=== PATIENT | female | born 1975 | race Caucasian/White ===

== ENCOUNTER 2023-06-03 12:22 | Emergency (ER) | payer OTHER, SELFPAY ==
[2023-06-03 12:34] VITALS: BP 153/94; PULSE 110; RESP 18; TEMP 37.2; O2SAT 98; BMI 36.0
[2023-06-03 13:27] LABS: Basophils Absolute Auto 0.1 10^3/uL (0.0-0.1); Basophils Percent Auto 0.5 % (0.2-2.0); Eosinophils Absolute Auto 0.1 10^3/uL (0.0-0.7); Eosinophils Percent Auto 1.1 % (0.9-7.0); Hematocrit 37.1 % (36.0-48.0); Hemoglobin 12.7 g/dL (12.0-16.0); Immature Granulocytes Abs Auto 0.06 10^3/uL (0.00-0.03); Immature Granulocytes Pct Auto 0.6 % (0.0-0.5); Lymphocytes Absolute Auto 2.5 10^3/uL (1.2-3.8); Lymphocytes Percent Auto 23.6 % (20.5-60.0); Mean Corpuscular HGB Conc 34.2 g/dL (29.9-35.2); Mean Corpuscular Hemoglobin 34.3 pg (26.7-34.0); Mean Corpuscular Volume 100.3 fL (81.0-99.0); Mean Platelet Volume 9.1 fL (9.5-13.5); Monocytes Absolute Auto 0.9 10^3/uL (0.3-0.8); Monocytes Percent Auto 8.4 % (1.7-12.0); Neutrophils Absolute Auto 6.9 10^3/uL (1.4-6.5); Neutrophils Percent Auto 65.8 % (43.0-75.0); Platelet Count 261 10^3/uL (150-450); Red Cell Distribution Width 13.6 % (11.0-15.0); White Blood Count 10.4 10^3/uL (4.0-11.0)
[2023-06-03 13:30] LABS: Bilirubin Urine NEGATIVE (NEGATIVE); Blood Urine MODERATE (NEGATIVE); Clarity Urine CLEAR (CLEAR); Color Urine LT. YELLOW (YELLOW); Glucose Urine UA NEGATIVE (NEGATIVE); Ketones Urine NEGATIVE (NEGATIVE); Leukocyte Esterase Urine MODERATE (NEGATIVE); Nitrite Urine POSITIVE (NEGATIVE); Protein Urine 30 mg/dL (NEG/TRACE); Specific Gravity Urine 1.015 (1.005-1.025); Urobilinogen Urine 0.2 EU/dL (0.2-1.0)
[2023-06-03 13:31] LABS: Urine Microscopic Indicated YES
[2023-06-03 13:43] LABS: Bacteria Urine MODERATE #/HPF (NONE SEEN); Cast Seen? NONE SEEN #/LPF (NONE SEEN); Crystals Seen? None Seen #/HPF (None Seen); Mucus Urine NONE SEEN (NONE SEEN); Squamous Epithelial Cell Urine FEW #/LPF (NONE/RARE); Urine Culture Indicated YES; WBC Urine 20-50 #/HPF (NONE SEEN)
[2023-06-03 13:45] LABS: Alanine Aminotransferase 29 U/L (14-59); Albumin Globulin Ratio 0.7; Albumin Level 3.2 g/dL (3.4-5.0); Alkaline Phosphatase 165 U/L (46-116); Anion Gap 13.9; Aspartate Amino Transferase 19 U/L (15-37); BUN Creatinine Ratio 13.1; Bilirubin Total 0.4 mg/dL (0.2-1.0); Calcium 9.5 mg/dL (8.5-10.1); Carbon Dioxide 24.7 mmol/L (21.0-32.0); Chloride 102 mmol/L (98-107); Estimated GFR (African America >60 (>=60); Estimated GFR (Non-African Ame >60 (>=60); Globulin 4.4 g/dL; Glucose 128 mg/dL (74-106); Potassium 3.6 mmol/L (3.5-5.1); Sodium 137 mmol/L (136-145); Total Protein 7.6 g/dL (6.4-8.2)
[2023-06-03 13:57] LABS: HCG Qualitative NEGATIVE (NEGATIVE)
--- NOTE | 2023-06-03 14:12 | US_ITS ---
[address] [address] Patient Name: ANN MARIE AMADOR MRN: [id number] date: 1975 Sex: F Assigned Patient Location: ER Current Patient Location: ER Accession/Order Number: [id number] Exam Date: 06/03/2023 15:25 Report Date: 06/03/2023 16:07 At the request of: CATHLEEN GIRON Procedure: US pelvis transvaginal EXAMINATION: US pelvis transvaginal, US vas organ single comp HISTORY: LLQ pain ovarian torsion COMPARISON: No relevant comparison available. TECHNIQUE: Transabdominal and/or transvaginal sonographic examination was performed as indicated by examination type. FINDINGS: UTERUS: Hysterectomy. RIGHT OVARY: Not seen. No suspicious adnexal findings. LEFT OVARY: Contains a 2.4 cm benign-appearing cyst. Duplex Doppler demonstrates normal waveform and flow; resistive index 0.4. Ovary size: 3.2 x 2.6 x 2.67 m. CUL-DE-SAC: Unremarkable. No significant free fluid. BLADDER: Unremarkable. OTHER: None. US/US pelvis transvaginal IMPRESSION: 1. Left ovary contains a benign-appearing 2.4 cm simple cyst which may contribute to patient's symptoms. 2. No evidence of ovarian torsion. Electronically authenticated by: SHIMA PALOMINO Date: 06/03/2023 16:07
--- NOTE | 2023-06-03 14:12 | CT_ITS ---
[address] [address] Patient Name: ANN MARIE AMADOR MRN: [id number] date: 1975 Sex: F Assigned Patient Location: ER Current Patient Location: Accession/Order Number: [id number] Exam Date: 06/03/2023 14:50 Report Date: 06/03/2023 15:22 At the request of: CATHLEEN GIRON Procedure: CT abdomen pelvis wo con EXAMINATION: CT abdomen pelvis wo con HISTORY: LLQ pain , urinary frequency, pressure with urination COMPARISON: No relevant comparison available. TECHNIQUE: Axial, Coronal, and Sagittal images were obtained without and/or with IV contrast as indicated by examination type. Dose reduction techniques were achieved by using automated exposure control and/or adjustment of mA and/or kV according to patient size and/or use of iterative reconstruction technique. FINDINGS: LUNG BASES: No visible pulmonary or pleural disease. LIVER: No enlargement, atrophy, suspicious density, or significant focal lesion. BILIARY: No dilatation or calcification. PANCREAS: No lesion, fluid collection, or abnormal duct dilatation. SPLEEN: No enlargement or focal lesion. ADRENALS: No mass or enlargement. KIDNEYS: Mild left hydronephrosis and hydroureter secondary to a partially obstructing 5 x 4 x 4 mm stone within distal ureter at the ureterovesical junction. 2 additional smaller stones within distal left ureter. Tiny nonobstructing stone within inferior pole of left kidney. Unremarkable right kidney and ureter. BOWEL/MESENTERY: No visible mass, obstruction, or bowel wall thickening. Normal appendix. AORTA/VASCULAR: No aneurysm or dissection. RETROPERITONEUM: No mass or adenopathy. LYMPH NODES: No adenopathy. URINARY BLADDER: No visible focal wall thickening, lesion, or calculus. PELVIC ORGANS: 2.6 and meter left ovarian cyst versus dominant follicle. No visible mass. Pelvic organs appropriate for patient age. ABDOMINAL WALL: No mass or hernia. BONES: No bony lesion or fracture. OTHER: Negative. CT/CT abdomen pelvis wo con IMPRESSION: 1.Mild left hydronephrosis secondary to a partially obstructing 5 mm stone at the ureterovesical junction. There are two additional smaller stones within the distal left ureter. 2.Nonobstructing left nephrolithiasis. Electronically authenticated by: SHIMA PALOMINO Date: 06/03/2023 15:22
--- NOTE | 2023-06-03 14:12 | ED.ABDPAIN1 ---
HPI - Abdominal Pain General Chief Complaint: Abdominal Pain Stated Complaint: left pelvis pain Time Seen by Provider: 06/03/23 12:48 Source: patient Mode of arrival: walk-in Limitations: no limitations History of Present Illness HPI narrative: The patient presenting with left lower abdominal pain that has been been going for the last day , she denies any burning with urination pain nausea vomiting any blood and urine. The patient denies any risk factor STD No history of similar presentation ,The pain is ten out of ten and it is not radiating Related Data Previous Rx's Medication Instructions Recorded ciprofloxacin HCl 500 mg tablet 500 mg PO BID #14 tabs 06/03/23 diclofenac sodium 75 mg 75 mg PO BID PRN pain #10 tabs 06/03/23 tablet,delayed release tamsulosin 0.4 mg capsule (Flomax) 0.4 mg PO DAILY #10 caps 06/03/23 Allergies Allergy/AdvReac Type Severity Reaction Status Date / Time azithromycin [From Zithromax] Allergy Intermediate Verified 06/03/23 12:38 Review of Systems ROS Status of ROS 10 or more systems reviewed and unremarkable except as noted in history and below Exam Narrative Exam Narrative: Nurses notes and vital signs reviewed and patient is not hypoxic. General: Well-appearing and in no apparent distress. Skin: Warm, dry, no pallor noted. No rash. Head: Normocephalic, atraumatic. Neck: Supple, non-tender. Eye: Pupils are equal, round and EOMI. No scleral icterus. Ears, Nose, Mouth, and Throat: TM are clear, no nasal mucosal hypertrophy. Oral mucosa is moist, no posterior oropharynx erythema, uvula is mid-line Cardiovascular: Regular Rate and Rhythm without murmur, gallop or rub. Respiratory: No accessory muscle use or respiratory distress. Lungs are clear to auscultation, no wheezing, rales or rhonchi Chest Wall: no tenderness Back: No midline thoracic or lumbar vertebral tenderness. No CVA tenderness Musculoskeletal: normal ROM, no calf or popliteal tenderness, no lower extremity edema/swelling GI: Abdomen is soft, left Lower quadrant tenderness and no rebound Neurological: A&O x4. No cranial nerve dysfunction observed. No truncal ataxia. Moves all extremities. Sensation intact. Psychiatric: Cooperative and interactive. Normal mood and affect. Constitutional Vital Signs, click to edit/add: Last Vital Signs Temp 98.9 F 06/03/23 12:34 Pulse 110 H 06/03/23 12:34 Resp 18 06/03/23 12:34 BP 153/94 H 06/03/23 12:34 Pulse Ox 98 06/03/23 12:34 O2 Del Method Room Air 06/03/23 12:34 Course Vital Signs Vital signs: Vital Signs Temperature 98.9 F 06/03/23 12:34 Pulse Rate 110 H 06/03/23 12:34 Respiratory Rate 18 06/03/23 12:34 Blood Pressure 153/94 H 06/03/23 12:34 Pulse Oximetry 98 06/03/23 12:34 Oxygen Delivery Method Room Air 06/03/23 12:34 Temperature 98.9 F 06/03/23 12:34 Pulse Rate 110 H 06/03/23 12:34 Respiratory Rate 18 06/03/23 12:34 Blood Pressure 153/94 H 06/03/23 12:34 Pulse Oximetry 98 06/03/23 12:34 Oxygen Delivery Method Room Air 06/03/23 12:34 MDM - Abdominal Pain MDM Narrative Medical decision making narrative: The patient's CBC and chemistry showed no acute pathology the urinalysis shows possible urinary tract infection The patient CT abdomen and pelvis shows an obstructing 5 mm kidney stone with mild hydronephrosis of the left side and ultrasound of the pelvis shows ovarian cyst the pt case discussed with Dr Umaña ,And he agreed with the plan of discharging the patient with antibiotic as well as pain management and follow-up with him as out pt The patient is to followup with primary care physician in next 2-3 days or to return to the emergency department should any of the signs or symptoms worsen or new symptoms develop. The patient agrees with the following Diagnosis and Treatment plan and the patient will be discharged home. Lab Data Labs: Lab Results 06/03/23 06/03/23 Range/Units 12:41 13:20 WBC 10.4 (4.0-11.0) 10^3/uL RBC 3.70 L (4.20-5.40) 10^6/uL Hgb 12.7 (12.0-16.0) g/dL Hct 37.1 (36.0-48.0) % MCV 100.3 H (81.0-99.0) fL MCH 34.3 H (26.7-34.0) pg MCHC 34.2 (29.9-35.2) g/dL RDW 13.6 (11.0-15.0) % Plt Count 261 (150-450) 10^3/uL MPV 9.1 L (9.5-13.5) fL Neut % (Auto) 65.8 (43.0-75.0) % Lymph % (Auto) 23.6 (20.5-60.0) % [place] % (Auto) 8.4 (1.7-12.0) % Eos % (Auto) 1.1 (0.9-7.0) % Baso % (Auto) 0.5 (0.2-2.0) % Neut # (Auto) 6.9 H (1.4-6.5) 10^3/uL Lymph # (Auto) 2.5 (1.2-3.8) 10^3/uL [place] # (Auto) 0.9 H (0.3-0.8) 10^3/uL Eos # (Auto) 0.1 (0.0-0.7) 10^3/uL Baso # (Auto) 0.1 (0.0-0.1) 10^3/uL Abs Immat Gran (auto) 0.06 H (0.00-0.03) 10^3/uL Imm/Tot Granulo (auto) 0.6 H (0.0-0.5) % Sodium 137 (136-145) mmol/L Potassium 3.6 (3.5-5.1) mmol/L Chloride 102 (98-107) mmol/L Carbon Dioxide 24.7 (21.0-32.0) mmol/L Anion Gap 13.9 BUN 11.0 (7.0-18.0) mg/dL Creatinine 0.84 (0.55-1.02) mg/dL Est GFR ( Amer) >60 (>=60) Est GFR (Non-Af Amer) >60 (>=60) BUN/Creatinine Ratio 13.1 Glucose 128 H (74-106) mg/dL Calcium 9.5 (8.5-10.1) mg/dL Total Bilirubin 0.4 (0.2-1.0) mg/dL AST 19 (15-37) U/L ALT 29 (14-59) U/L Alkaline Phosphatase 165 H (46-116) U/L Total Protein 7.6 (6.4-8.2) g/dL Albumin 3.2 L (3.4-5.0) g/dL Globulin 4.4 g/dL Albumin/Globulin Ratio 0.7 Urine Color Lt. yellow (YELLOW) Urine Clarity Clear (CLEAR) Urine pH 6.0 (5.0-9.0) Ur Specific [place] 1.015 (1.005-1.025) Urine Protein 30 A (NEG/TRACE) mg/dL Urine Glucose (UA) Negative (NEGATIVE) mg/dL Urine Ketones Negative (NEGATIVE) mg/dL Urine Occult Blood Moderate A (NEGATIVE) Urine Nitrite Positive A (NEGATIVE) Urine Bilirubin Negative (NEGATIVE) Urine Urobilinogen 0.2 (0.2-1.0) EU/dL Ur Leukocyte Esterase Moderate A (NEGATIVE) Urine RBC 2-5 A (0-2) #/HPF Urine WBC 20-50 A (NONE SEEN) #/HPF Ur Squamous Epith Cells Few A (NONE/RARE) #/LPF Urine Crystals None seen (None Seen) #/HPF Urine Bacteria Moderate A (NONE SEEN) #/HPF Urine Casts None seen (NONE SEEN) #/LPF Urine Mucus None seen (NONE SEEN) Ur Culture Indicated? Yes Urine HCG, Qual Negative (NEGATIVE) Discharge Plan Discharge Chief Complaint: Abdominal Pain Clinical Impression: UTI (urinary tract infection), Kidney stone Patient Disposition: Home, Self-Care Time of Disposition Decision: 16:38 Condition: Good Mode of Transportation: Private Vehicle Prescriptions / Home Meds: New ciprofloxacin HCl 500 mg tablet 500 mg PO BID Qty: 14 0RF tamsulosin [Flomax] 0.4 mg capsule 0.4 mg PO DAILY Qty: 10 0RF diclofenac sodium 75 mg tablet,delayed release (DR/EC) 75 mg PO BID PRN (Reason: pain) Qty: 10 0RF Instructions: Kidney Stones (ED), Urinary Tract Infection in Women (ED), How to Strain Your Urine (ED) Stand Alone Forms: Portal Instructions Referrals: Physician,Non-Staff, MD [Primary Care Provider] - 1 week Giuseppe Umaña MD [Physician] - As soon as possible
[2023-06-03] MEDS: KETOROLAC TROMETHAMINE 30 MG/ML VIAL 15 MG IVP (14:35)
[2023-06-03] MEDS: FAMOTIDINE/PF 20 MG/2 ML VIAL IV (14:35)
== END 2023-06-03 17:01 | disposition home or self-care (01) ==
PROVIDERS: Emergency Provider Emergency Medicine
DX: N13.6 Pyonephrosis (principal)
CPT/HCPCS: 36415; 74176; 76830; 80053; 81003; 81015; 84703; 85025; 87086; 87150; 87186; 93975; 96374; 96375; 99285

== ENCOUNTER 2023-06-08 11:50 | Outpatient (OUT) | payer OTHER, SELFPAY ==
--- NOTE | 2023-06-08 12:33 | XR_ITS ---
The [address] [address] Patient Name: ANN MARIE AMADOR MRN: [id number] date: 1975 Sex: F Assigned Patient Location: [facility] Current Patient Location: Accession/Order Number: [id number] Exam Date: 06/08/2023 12:35 Report Date: 06/09/2023 07:28 At the request of: ASHLEY SKAGGS Procedure: XR abdomen 1V EXAMINATION: XR abdomen 1V HISTORY: Ureteral Stone, Kidney Stone COMPARISON: 06/03/2023 FINDINGS: KIDNEY/URETER - RIGHT: No visible renal or ureteral calcifications. KIDNEY/URETER - LEFT: Calcifications in the low left pelvis suspected to be phleboliths and/or a distal ureterolith PELVIS: No visible ureteral calcifications. Any visible calcifications favor phleboliths. BOWEL: No abnormal dilation or deviation. Moderate stool in the right colon BONES: No acute abnormality. OTHER: Negative. No abnormal gaseous collections. XR/XR abdomen 1V IMPRESSION: Suspected distal left ureterolith Electronically authenticated by: TOM HAUSER Date: 06/09/2023 07:28
== END 2023-06-08 11:51 | disposition home or self-care (01) ==
LOC: RAD 11:54
PROVIDERS: Visit Provider Urology
DX: N20.2 Calculus of kidney with calculus of ureter (principal)
CPT/HCPCS: 74018

== ENCOUNTER 2023-06-22 10:00 | Outpatient (OUT) | payer OTHER, SELFPAY ==
--- NOTE | 2023-06-22 10:07 | XR_ITS ---
The [address] [address] Patient Name: ANN MARIE AMADOR MRN: [id number] date: 1975 Sex: F Assigned Patient Location: [facility] Current Patient Location: RAD Accession/Order Number: [id number] Exam Date: 06/22/2023 10:05 Report Date: 06/22/2023 10:49 At the request of: ASHLEY SKAGGS Procedure: XR abdomen 1V EXAM: XR abdomen 1V HISTORY: Ureteral stone with hydronephrosis COMPARISON: None. TECHNIQUE: AP view of the abdomen. FINDINGS: Nonobstructive bowel gas pattern is noted. There is probable punctate calculi calculus of the left distal ureter. The osseous structures are intact. XR/XR abdomen 1V IMPRESSION: Nonobstructive bowel gas pattern. Probable calculus in the distal left ureter. Electronically authenticated by: JOAN FARLEY Date: 06/22/2023 10:49
== END 2023-06-22 10:01 | disposition home or self-care (01) ==
LOC: RAD 10:01
PROVIDERS: Visit Provider Urology
DX: N13.2 Hydronephrosis with renal and ureteral calculous obstruction (principal)
CPT/HCPCS: 74018

== ENCOUNTER 2023-07-10 09:09 | Outpatient (OUT) | payer OTHER, SELFPAY ==
[2023-07-10 11:48] LABS: Calcium Urine Random 21.4 mg/dL (5.1-21.0); Creatinine Urine Random 117.19 mg/dL (20.00-300.00); Sodium Urine Random 117 mmol/L (30-90)
[2023-07-10 12:13] LABS: Calcium 24 Hour Urine 267.5 mg/24hr (100.0-300.0); Sodium 24 Hour Urine 146 mmol/24h (40-220); Total Volume 24 Hour Urine 1250 mL/24hr
[2023-07-10 12:32] LABS: Calcium 9.2 mg/dL (8.5-10.1); Carbon Dioxide 26.3 mmol/L (21.0-32.0); Chloride 103 mmol/L (98-107); Estimated GFR (African America >60 (>=60); Estimated GFR (Non-African Ame >60 (>=60); Potassium 3.3 mmol/L (3.5-5.1); Sodium 137 mmol/L (136-145); Uric Acid 3.8 mg/dL (2.6-6.0)
[2023-07-11 09:07] LABS: Uric Acid,Urine 24hr 237.5 mg/24 hr (173.7-902.1)
[2023-07-12 04:08] LABS: Magnesium, U 4.9 mg/dL (Not Estab.); Magnesium,Urine 24hr 61.3 mg/24 hr (12.0-293.0); Phosphorus, Urine 61.1 mg/dL (Not Estab.); Phosphorus,Urine 24h 764 mg/24 hr (261-1078)
[2023-07-12 13:08] LABS: PTH, Intact 132 pg/mL (15-65)
[2023-07-14 16:09] LABS: Citric Acid, U, 24hr 331 mg/24 hr (320-1240); Citric Acid, Urine 265 mg/L (Undefined)
[2023-07-14 17:10] LABS: Oxalates, Urine 6 mg/L (Undefined); Oxalates, Urine 24hr 8 mg/24 hr (4-31)
== END 2023-07-10 09:10 | disposition home or self-care (01) ==
PROVIDERS: Visit Provider Urology
DX: N20.0 Calculus of kidney (principal)
CPT/HCPCS: 36415; 82310; 82340; 82374; 82435; 82507; 82565; 82570; 83735; 83945; 83970; 84105; 84132; 84295; 84300; 84520; 84550; 84560

== ENCOUNTER 2023-07-18 14:15 | Emergency (ER) | payer OTHER, SELFPAY ==
[2023-07-18 14:17] VITALS: BP 170/87; PULSE 100; RESP 16; TEMP 36.9; O2SAT 97; BMI 37.8
--- NOTE | 2023-07-18 14:30 | ED.EXTPRO1 ---
HPI - Extremity Problem General Chief complaint: Extremity Problem, Nontraumatic Stated complaint: OPEN SORE ON R FOOT/PAIN Time Seen by Provider: 07/18/23 14:25 Source: patient Mode of arrival: walk-in Limitations: no limitations History of Present Illness HPI Narrative: this patient's here with early sore/wound on the plantar aspect of her right foot. She is not a diabetic but has not been tested for several years. She is not running a fever. She's not seen a redness or swelling over the dorsum of the foot. She is on her feet a lot says sometimes her feet have a lot of moisture. She works seven days a week. She does not have any complaints today. He does have pets including a cat at home. Related Data Home Medications Medication Instructions Recorded Confirmed lisinopril 10 mg tablet 10 mg PO DAILY 07/18/23 07/18/23 metoprolol succinate 25 mg 25 mg PO DAILY 07/18/23 07/18/23 tablet,extended release 24 hr naratriptan 2.5 mg tablet 2.5 mg PO DAILY 07/18/23 07/18/23 riboflavin (vitamin B2) 100 mg 100 mg PO DAILY 07/18/23 07/18/23 tablet Allergies Allergy/AdvReac Type Severity Reaction Status Date / Time azithromycin [From Zithromax] Allergy Intermediate Verified 06/03/23 12:38 Exam Narrative Exam Narrative: very pleasant awake alert oriented ?3. We will do a bedside glucose to rule out any unsuspected diabetic condition. Problem focused examination as noted below. Examination the plantar aspect and the dorsum of her foot shows no swelling lymphangitis erythema or evidence of cellulitis. There is no intertriginous O evidence of fungal infections or tinea. At the metatarsophalangeal joint of her 3rd digit she discuss small break in the skin. Within that break in the skin there is some For and some clothing debris. We will scrub this area out. This should respond better hygiene keeping it clean topical antibiotic ointment. Constitutional Vital Signs, click to edit/add: Last Vital Signs Temp 98.5 F 07/18/23 14:17 Pulse 100 H 07/18/23 14:17 Resp 16 07/18/23 14:17 BP 170/87 H 07/18/23 14:17 Pulse Ox 97 07/18/23 14:17 O2 Del Method Room Air 07/18/23 14:17 Course Vital Signs Vital signs: Vital Signs Temperature 98.5 F 07/18/23 14:17 Pulse Rate 100 H 07/18/23 14:17 Respiratory Rate 16 07/18/23 14:17 Blood Pressure 170/87 H 07/18/23 14:17 Pulse Oximetry 97 07/18/23 14:17 Oxygen Delivery Method Room Air 07/18/23 14:17 Temperature 98.5 F 07/18/23 14:17 Pulse Rate 100 H 07/18/23 14:17 Respiratory Rate 16 07/18/23 14:17 Blood Pressure 170/87 H 07/18/23 14:17 Pulse Oximetry 97 07/18/23 14:17 Oxygen Delivery Method Room Air 07/18/23 14:17 MDM - Extremity (Nontraumatic) MDM Narrative Medical decision making narrative: patient has a small crack in the skin with no evidence of secondary complications. We'll clean this up and recommend bacitracin or triple antibiotic ointment and but low but better hygiene. Discharge Plan Discharge Chief Complaint: Extremity Problem, Nontraumatic Clinical Impression: Superficial foreign body of toe of right foot without major open wound and without infection Patient Disposition: Home, Self-Care Time of Disposition Decision: 14:32 Prescriptions / Home Meds: No Action lisinopril 10 mg tablet 10 mg PO DAILY metoprolol succinate 25 mg tablet extended release 24 hr 25 mg PO DAILY naratriptan 2.5 mg tablet 2.5 mg PO DAILY riboflavin (vitamin B2) 100 mg tablet 100 mg PO DAILY Additional Instructions: wear postop shoe for seven to ten days to facilitate healing. Topical bacitracin twice daily. Keep foot clean at all times Stand Alone Forms: Portal Instructions Referrals: Physician,Non-Staff, MD [Primary Care Provider] - 1 week
[2023-07-18 14:55] LABS: Glucometer 116 mg/dL (74-106)
== END 2023-07-18 15:09 | disposition home or self-care (01) ==
PROVIDERS: Emergency Provider Emergency Medicine Emergency Medical Services
DX: S90.454A Superficial foreign body, right lesser toe(s), initial encounter (principal); X58.XXXA Exposure to other specified factors, initial encounter; Z79.899 Other long term (current) drug therapy
CPT/HCPCS: 36415; 99282

== ENCOUNTER 2023-07-21 08:38 | Outpatient (OUT) | payer OTHER, SELFPAY ==
[2023-07-21 09:18] LABS: Basophils Absolute Auto 0.1 10^3/uL (0.0-0.1); Basophils Percent Auto 0.7 % (0.2-2.0); Eosinophils Absolute Auto 0.3 10^3/uL (0.0-0.7); Eosinophils Percent Auto 3.3 % (0.9-7.0); Hematocrit 41.9 % (36.0-48.0); Hemoglobin 14.1 g/dL (12.0-16.0); Immature Granulocytes Abs Auto 0.02 10^3/uL (0.00-0.03); Immature Granulocytes Pct Auto 0.2 % (0.0-0.5); Lymphocytes Absolute Auto 4.3 10^3/uL (1.2-3.8); Lymphocytes Percent Auto 49.3 % (20.5-60.0); Mean Corpuscular HGB Conc 33.7 g/dL (29.9-35.2); Mean Corpuscular Hemoglobin 33.8 pg (26.7-34.0); Mean Corpuscular Volume 100.5 fL (81.0-99.0); Monocytes Absolute Auto 0.5 10^3/uL (0.3-0.8); Monocytes Percent Auto 5.2 % (1.7-12.0); Neutrophils Absolute Auto 3.6 10^3/uL (1.4-6.5); Neutrophils Percent Auto 41.3 % (43.0-75.0); Platelet Count 281 10^3/uL (150-450); Red Blood Count 4.17 10^6/uL (4.20-5.40); Red Cell Distribution Width 13.6 % (11.0-15.0); White Blood Count 8.7 10^3/uL (4.0-11.0)
[2023-07-21 11:17] LABS: Estimated Average Glucose 120 mg/dL; Glycohemoglobin A1C 5.8 % (4.5-6.2)
[2023-07-21 13:18] LABS: Alanine Aminotransferase 23 U/L (14-59); Albumin Globulin Ratio 0.7; Albumin Level 3.2 g/dL (3.4-5.0); Alkaline Phosphatase 162 U/L (46-116); BUN Creatinine Ratio 17.9; Bilirubin Total 0.1 mg/dL (0.2-1.0); Calcium 9.5 mg/dL (8.5-10.1); Carbon Dioxide 24.1 mmol/L (21.0-32.0); Chloride 107 mmol/L (98-107); Chol HDL Ratio 8.8; Cholesterol 247 mg/dL (<=200); Estimated GFR (African America >60 (>=60); Estimated GFR (Non-African Ame >60 (>=60); Globulin 4.4 g/dL; Glucose 100 mg/dL (74-106); HDL Cholesterol 28 mg/dL (40-60); Potassium 4.1 mmol/L (3.5-5.1); Sodium 140 mmol/L (136-145); Thyroid Stimulating Hormone 2.159 uIU/mL (0.358-3.740); Total Protein 7.6 g/dL (6.4-8.2); Triglycerides 609 mg/dL (<=150); VLDL CHOLESTEROL 121.8 mg/dL
[2023-07-21 13:42] LABS: Aspartate Amino Transferase <5 U/L (15-37)
[2023-07-21 14:14] LABS: LDL Cholesterol Direct 121 mg/dL
[2023-07-22 05:10] LABS: HCV Ab Non Reactive (Non Reactive); HIV Ab/p24 Ag Screen Non Reactive (Non Reactive)
== END 2023-07-21 08:39 | disposition home or self-care (01) ==
LOC: LAB 08:40
PROVIDERS: PCP Nurse Practitioner Primary Care; Visit Provider Nurse Practitioner Primary Care
DX: Z00.00 Encounter for general adult medical examination without abnormal findings (principal); Z11.59 Encounter for screening for other viral diseases; Z13.6 Encounter for screening for cardiovascular disorders; Z13.29 Encounter for screening for other suspected endocrine disorder; Z11.4 Encounter for screening for human immunodeficiency virus [HIV]
CPT/HCPCS: 36415; 80053; 80061; 83036; 83721; 84443; 85025; 86803; 87389

== ENCOUNTER 2023-08-09 11:31 | Outpatient (OUT) | payer OTHER, SELFPAY ==
--- NOTE | 2023-08-09 11:35 | MM_ITS ---
Patient: ANN MARIE AMADOR Exam Date: 08/09/2023 : 1975 Gender:F Ordering : GREER Monroe GREGORIOROLANDO Admission #: [id number] Family : Order #: [id number] CLICK HERE TO VIEW EXAM RADIOLOGY REPORT PROCEDURE: MM TOMOSYNTHESIS SCREENING BI COMPARISON: None. INDICATIONS: Z12.31 Calculator Name NCI Breast Cancer Risk Assessment Tool 5 Year Breast Cancer Risk 0.80% Lifetime Breast Cancer Risk 8.30% Personal Breast Cancer No Personal Ovarian Cancer No Treatments None Family Cancers Aunt-maternal with breast cancer at age ~55; Aunt-maternal with breast cancer at age ~56; Cousin-maternal with breast cancer at age ~50; Mother with lung cancer at age ~60. LOCATION: [facility] [place] BREAST COMPOSITION: Heterogeneously dense,which may obscure small masses. FINDINGS: DIAGNOSTIC CATEGORY 0--INCOMPLETE: NEED ADDITIONAL IMAGING EVALUATION. Innumerable bilateral nodules are identified , indeterminate with no prior comparison, consider bilateral whole breast ultrasound. Scattered benign-appearing lymph nodes are present. RIGHT BREAST: 1.7 x 0.9 cm oval nodule lower outer quadrant of the right mid breast with surrounding hypodensity measuring 3.5 cm. Ultrasound follow-up recommended LEFT BREAST: Scattered nodules. RECOMMENDATIONS: ULTRASOUND: BILATERAL BREASTS PLEASE NOTE: A NORMAL MAMMOGRAM DOES NOT EXCLUDE THE POSSIBILITY OF BREAST CANCER. A CLINICALLY SUSPICIOUS PALPABLE LUMP SHOULD BE BIOPSIED. Dictated by: Magen Chanel MD on 08/09/2023 at 15:43 Approved by: Magen Chanel MD on 08/09/2023 at 15:47
== END 2023-08-09 11:32 | disposition home or self-care (01) ==
LOC: MAMMO 11:32
PROVIDERS: PCP Nurse Practitioner Primary Care; Visit Provider Nurse Practitioner Primary Care
DX: Z12.31 Encounter for screening mammogram for malignant neoplasm of breast (principal); Z80.3 Family history of malignant neoplasm of breast; Z80.1 Family history of malignant neoplasm of trachea, bronchus and lung; N63.13 Unspecified lump in the right breast, lower outer quadrant
CPT/HCPCS: 77063; 77067

== ENCOUNTER 2023-08-10 11:10 | Outpatient (OUT) | payer OTHER, SELFPAY ==
--- NOTE | 2023-08-10 | XR_ITS ---
[address] [address] Patient Name: ANN MARIE AMADOR MRN: [id number] date: 1975 Sex: F Assigned Patient Location: [facility] Current Patient Location: Accession/Order Number: [id number] Exam Date: 08/10/2023 11:53 Report Date: 08/11/2023 07:22 At the request of: ADELE ROSS Procedure: XR foot GABRIELA min 3V EXAMINATION: XR foot GABRIELA min 3V HISTORY: BILATERAL FOOT PAIN COMPARISON: XR foot bilateral 06/04/2022 FINDINGS: RIGHT FINDINGS: BONES: No significant arthropathy or acute abnormality. SOFT TISSUES: No visible soft tissue swelling. OTHER: Negative. LEFT FINDINGS: BONES: No significant arthropathy or acute abnormality. SOFT TISSUES: No visible soft tissue swelling. OTHER: Negative. XR/XR foot GABRIELA min 3V IMPRESSION: RIGHT CONCLUSION: Minimal degenerative changes. No acute or suspicious findings. LEFT CONCLUSION: Minimal degenerative changes. No acute or suspicious findings. Electronically authenticated by: SHIMA PALOMINO Date: 08/11/2023 07:22
== END 2023-08-10 11:11 | disposition home or self-care (01) ==
LOC: RAD 11:10
PROVIDERS: PCP Nurse Practitioner Primary Care; Visit Provider Podiatrist Foot & Ankle Surgery
DX: M79.671 Pain in right foot (principal); M79.672 Pain in left foot
CPT/HCPCS: 73630

== ENCOUNTER 2023-08-20 14:19 | Outpatient (OUT) | payer OTHER, SELFPAY ==
--- NOTE | 2023-08-20 14:24 | US_ITS ---
Patient: ANN MARIE AMADOR Exam Date: 08/20/2023 : 1975 Gender:F Ordering : GREER SIFUENTES Admission #: [id number] Family : Order #: [id number] CLICK HERE TO VIEW EXAM RADIOLOGY REPORT PROCEDURE: US BREAST BI COMPLETE COMPARISON: MM TOMOSYNTHESIS SCREENING BI, 08/09/2023. INDICATIONS: Abnormal Mammogram R92.8 TECHNIQUE: Breast ultrasound was performed, with evaluation focusing only on specific areas of concern. FINDINGS: DIAGNOSTIC CATEGORY 2--BENIGN FINDING: Bilateral whole breast ultrasound demonstrates multiple hypo and anechoic areas in both breasts, all are avascular. the largest the 8 o'clock position of the right breast measures 1.4 x 1.0 x 0.6 cm oval in shape well-circumscribed with no vascularity. I favor simple and complex cysts. No further evaluation is required RECOMMENDATIONS: ROUTINE MAMMOGRAM AND CLINICAL EVALUATION IN 12 MONTHS. PLEASE NOTE: A NORMAL ULTRASOUND EXAMINATION DOES NOT EXCLUDE THE POSSIBILITY OF BREAST CANCER. A CLINICALLY SUSPICIOUS PALPABLE LUMP SHOULD BE BIOPSIED. Dictated by: Magen Chanel MD on 08/24/2023 at 15:10 Approved by: Magen Chanel MD on 08/24/2023 at 15:12
== END 2023-08-20 14:20 | disposition home or self-care (01) ==
LOC: US 14:20
PROVIDERS: PCP Nurse Practitioner Primary Care; Visit Provider Nurse Practitioner Primary Care
DX: R92.8 Other abnormal and inconclusive findings on diagnostic imaging of breast (principal)
CPT/HCPCS: 76641

== ENCOUNTER 2023-12-23 23:21 | Emergency (ER) | payer SELFPAY ==
[2023-12-23 23:28] VITALS: BP 152/91; PULSE 139; RESP 20; TEMP 37.5; O2SAT 96; BMI 33.6
[2023-12-23 23:47] VITALS: PULSE 132; RESP 22
[2023-12-23 23:50] VITALS: PULSE 135; RESP 18
--- NOTE | 2023-12-23 23:53 | ECG_ITS ---
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
--- NOTE | 2023-12-23 23:53 | XR_ITS ---
The [address] [address] Patient Name: ANN MARIE AMADOR MRN: [id number] date: 1975 Sex: F Assigned Patient Location: ED.MAIN Current Patient Location: ER Accession/Order Number: [id number] Exam Date: 12/23/2023 23:59 Report Date: 12/24/2023 00:29 At the request of: ZANDER PERES Procedure: XR chest 1V EXAM: XR chest 1V HISTORY: cough fever, sore throat. COMPARISON: 07/12/2021. TECHNIQUE: Portable AP upright chest x-ray FINDINGS: Lungs clear without infiltrate or edema. Size normal for technique and unchanged, accentuated by magnification. No pleural effusion or pneumothorax. XR/XR chest 1V IMPRESSION: Stable chest x-ray, no acute findings. Electronically authenticated by: TAHIR OCONNELL Date: 12/24/2023 00:29
--- NOTE | 2023-12-23 23:55 | ED.GENADUL1 ---
HPI - General Adult General Chief complaint: Upper Respiratory Infection Stated complaint: vomiting JAW PAIN Time Seen by Provider: 12/23/23 23:30 History of Present Illness HPI narrative: 3 days ago the patient lost her voice. Tonight she developed fever, pain in the left ear and left side of her neck and jaw. Patient also complains of cough, fatigue, poor appetite and poor oral intake due to nausea and fast heart rate. She denied any vomiting or diarrhea. No shortness of breath. She said that she has several ill contacts in her office but does not know what they were diagnosed with. She said that she last took motrin around 2pm. Related Data Home Medications Medication Instructions Recorded Confirmed lisinopril 10 mg tablet 10 mg PO DAILY 07/18/23 07/18/23 metoprolol succinate 25 mg 25 mg PO DAILY 07/18/23 07/18/23 tablet,extended release 24 hr naratriptan 2.5 mg tablet 2.5 mg PO DAILY 07/18/23 07/18/23 riboflavin (vitamin B2) 100 mg 100 mg PO DAILY 07/18/23 07/18/23 tablet Previous Rx's Medication Instructions Recorded ondansetron 4 mg disintegrating 4 mg PO Q6H PRN nausea and 12/24/23 tablet vomiting #20 tabs Allergies Allergy/AdvReac Type Severity Reaction Status Date / Time azithromycin [From Zithromax] Allergy Intermediate Verified 06/03/23 12:38 PFSH PFS Social History Smoking status: Current every day smoker Exam Narrative Exam Narrative: Nurses notes and vital signs reviewed and patient is not hypoxic. afebrile General: Well-appearing and in no apparent distress. Skin: Warm, dry, no pallor noted. No rash. Head: Normocephalic, atraumatic. Neck: Supple, no cervical lymphadenopathy. Left anterolateral tenderness without any masses, soft tissue swelling, erythema, warmth or palpable abscess. No meningismus. Eye: Pupils are equal, round and EOMI. No scleral icterus. Ears, Nose, Mouth, and Throat: TM are clear, mild posterior oropharynx erythema without exudate, no nasal mucosal hypertrophy, uvula is mid-line. Oral mucosa is dry Cardiovascular: Tachycardia. Respiratory: No accessory muscle use or respiratory distress. Lungs are clear to auscultation, no wheezing, rales or rhonchi Back: No midline thoracic or lumbar vertebral tenderness. No CVA tenderness Musculoskeletal: normal ROM GI: Abdomen is soft, non-distended. Normal bowel sounds. No tenderness to palpation. No rebound, guarding, or rigidity noted. Neurological: A&O x4. No cranial nerve dysfunction observed. No truncal ataxia. Moves all extremities. Sensation intact. Psychiatric: Cooperative and interactive. Normal mood and affect. Constitutional Vital Signs, click to edit/add: Last Vital Signs Temp 99.5 F 12/23/23 23:28 Pulse 110 H 12/24/23 00:50 Resp 24 12/24/23 00:50 BP 129/78 12/24/23 00:30 Pulse Ox 96 12/24/23 00:22 O2 Del Method Room Air 12/23/23 23:28 Course Vital Signs Vital signs: Vital Signs Temperature 99.5 F 12/23/23 23:28 Pulse Rate 139 H 12/23/23 23:28 Respiratory Rate 20 12/23/23 23:28 Blood Pressure 152/91 H 12/23/23 23:28 Pulse Oximetry 96 12/23/23 23:28 Oxygen Delivery Method Room Air 12/23/23 23:28 Temperature 99.5 F 12/23/23 23:28 Pulse Rate 110 H 12/24/23 00:50 Respiratory Rate 24 12/24/23 00:50 Blood Pressure 129/78 12/24/23 00:30 Pulse Oximetry 96 12/24/23 00:22 Oxygen Delivery Method Room Air 12/23/23 23:28 Medical Decision Making MDM Narrative Medical decision making narrative: Peripheral IV established and blood drawn and sent for testing, including lactate, procalcitonin, blood cultures per sepsis protocol. Swabs were also obtained for strep throat, COVID and influenza. Chest x-ray obtained. She was ordered to receive a liter of normal saline IV fluid, IV Toradol and IV Zofran. EKG today is unchanged from one obtained 07/12/21. normal WBC on CBC. CXR negative. Na 133, CO2 19.5, remainder of CMP unremarkable. Swabs for influenza and strep were negative. Covid swab positive. Patient informed of results and discharged home with prescription for Zofran and a work excuse. Patient advised to rest, stay at home, practice social distancing, take Motrin and Tylenol for pain and fever if not allergic, stay well hydrated with Gatorade or similar drinks if vomiting or eat as tolerated if not and take any meds as prescribed. Reviewed reasons to return including rapid increase in respiratory rate, shortness of breath, confusion, inability to keep down sips of swallowed liquids for more than 24 hours. Asked patient to encourage any ill contacts to stay home and practice similar advice. Lab Data Lab results reviewed: Yes I reviewed the patient's lab results Labs: Lab Results 12/23/23 12/24/23 Range/Units 23:53 00:11 WBC 8.5 (4.0-11.0) 10^3/uL RBC 4.17 L (4.20-5.40) 10^6/uL Hgb 14.5 (12.0-16.0) g/dL Hct 42.7 (36.0-48.0) % MCV 102.4 H (81.0-99.0) fL MCH 34.8 H (26.7-34.0) pg MCHC 34.0 (29.9-35.2) g/dL RDW 13.4 (11.0-15.0) % Plt Count 246 (150-450) 10^3/uL MPV 10.1 (9.5-13.5) fL Neut % (Auto) 60.8 (43.0-75.0) % Lymph % (Auto) 29.1 (20.5-60.0) % [place] % (Auto) 8.5 (1.7-12.0) % Eos % (Auto) 0.8 L (0.9-7.0) % Baso % (Auto) 0.6 (0.2-2.0) % Neut # (Auto) 5.1 (1.4-6.5) 10^3/uL Lymph # (Auto) 2.5 (1.2-3.8) 10^3/uL [place] # (Auto) 0.7 (0.3-0.8) 10^3/uL Eos # (Auto) 0.1 (0.0-0.7) 10^3/uL Baso # (Auto) 0.1 (0.0-0.1) 10^3/uL Abs Immat Gran (auto) 0.02 (0.00-0.03) 10^3/uL Imm/Tot Granulo (auto) 0.2 (0.0-0.5) % Sodium 132 L (136-145) mmol/L Potassium 3.8 (3.5-5.1) mmol/L Chloride 101 (98-107) mmol/L Carbon Dioxide 19.5 L (21.0-32.0) mmol/L Anion Gap 15.3 BUN 7.0 (7.0-18.0) mg/dL Creatinine 0.85 (0.55-1.02) mg/dL Est GFR ( Amer) >60 (>=60) Est GFR (Non-Af Amer) >60 (>=60) BUN/Creatinine Ratio 8.2 Glucose 147 H (74-106) mg/dL Lactate 2.7 H* (0.4-2.0) mmol/L Calcium 9.8 (8.5-10.1) mg/dL Total Bilirubin 0.2 (0.2-1.0) mg/dL AST 10 L (15-37) U/L ALT 41 (14-59) U/L Alkaline Phosphatase 197 H (46-116) U/L Total Protein 8.1 (6.4-8.2) g/dL Albumin 3.3 L (3.4-5.0) g/dL Globulin 4.8 g/dL Albumin/Globulin Ratio 0.7 Procalcitonin <0.05 (0.00-0.50) ng/mL Influenza Type A Ag Negative Influenza Type B Ag Negative SARS-CoV-2 Ag (CV2AG) Positive A (NEGATIVE) Streptococcus Screen Negative Imaging Data Chest x-ray: Radiologist's impression: ITS Impressions Chest X-Ray 12/23/23 23:53 IMPRESSION: Stable chest x-ray, no acute findings. Electronically authenticated by: TAHIR OCONNELL Date: 12/24/2023 00:29 ECG Data Attestation: I personally reviewed and interpreted this ECG as follows: Interpretation: EKG interpretation: Emergency Department physician interpretation. Sinus tachycardia at 132bpm. Indeterminate axis, normal intervals, non specific T wave changes but no ST segment elevation or depression. Discharge Plan Discharge Chief Complaint: Upper Respiratory Infection Clinical Impression: COVID Patient Disposition: Home, Self-Care Time of Disposition Decision: 01:03 Prescriptions / Home Meds: New ondansetron 4 mg tablet,disintegrating 4 mg PO Q6H PRN (Reason: nausea and vomiting) Qty: 20 0RF No Action lisinopril 10 mg tablet 10 mg PO DAILY metoprolol succinate 25 mg tablet extended release 24 hr 25 mg PO DAILY naratriptan 2.5 mg tablet 2.5 mg PO DAILY riboflavin (vitamin B2) 100 mg tablet 100 mg PO DAILY Instructions: COVID-19 (Coronavirus Disease 2019) (ED) Stand Alone Forms: Portal Instructions Referrals: GREER SIFUENTES APRN [Primary Care Provider] - 1 week
[2023-12-24] VITALS (8 sets, daily range): BP systolic 111–129; BP diastolic 78–84; PULSE 110–130; RESP 17–26; O2SAT 94–96
[2023-12-24] MEDS: 0.9 % SODIUM CHLORIDE 1,000 ML 1000 ML IV (00:05)
[2023-12-24] MEDS: KETOROLAC TROMETHAMINE 30 MG/ML VIAL IVP (00:06)
[2023-12-24] MEDS: ONDANSETRON PF 4 MG/2 ML VIAL IV (00:06)
[2023-12-24 00:29] LABS: Basophils Absolute Auto 0.1 10^3/uL (0.0-0.1); Basophils Percent Auto 0.6 % (0.2-2.0); Eosinophils Absolute Auto 0.1 10^3/uL (0.0-0.7); Eosinophils Percent Auto 0.8 % (0.9-7.0); Hematocrit 42.7 % (36.0-48.0); Hemoglobin 14.5 g/dL (12.0-16.0); Immature Granulocytes Abs Auto 0.02 10^3/uL (0.00-0.03); Immature Granulocytes Pct Auto 0.2 % (0.0-0.5); Lymphocytes Absolute Auto 2.5 10^3/uL (1.2-3.8); Lymphocytes Percent Auto 29.1 % (20.5-60.0); Mean Corpuscular Hemoglobin 34.8 pg (26.7-34.0); Mean Corpuscular Volume 102.4 fL (81.0-99.0); Mean Platelet Volume 10.1 fL (9.5-13.5); Monocytes Absolute Auto 0.7 10^3/uL (0.3-0.8); Monocytes Percent Auto 8.5 % (1.7-12.0); Neutrophils Absolute Auto 5.1 10^3/uL (1.4-6.5); Neutrophils Percent Auto 60.8 % (43.0-75.0); Platelet Count 246 10^3/uL (150-450); Red Blood Count 4.17 10^6/uL (4.20-5.40); Red Cell Distribution Width 13.4 % (11.0-15.0); White Blood Count 8.5 10^3/uL (4.0-11.0)
[2023-12-24 00:39] LABS: Internal Control Within Normal Limits; Strep A Antigen Screen Negative
[2023-12-24 00:39] LABS: Alanine Aminotransferase 41 U/L (14-59); Albumin Globulin Ratio 0.7; Albumin Level 3.3 g/dL (3.4-5.0); Alkaline Phosphatase 197 U/L (46-116); Anion Gap 15.3; Aspartate Amino Transferase 10 U/L (15-37); BUN Creatinine Ratio 8.2; Bilirubin Total 0.2 mg/dL (0.2-1.0); Calcium 9.8 mg/dL (8.5-10.1); Carbon Dioxide 19.5 mmol/L (21.0-32.0); Chloride 101 mmol/L (98-107); Estimated GFR (African America >60 (>=60); Estimated GFR (Non-African Ame >60 (>=60); Globulin 4.8 g/dL; Glucose 147 mg/dL (74-106); Potassium 3.8 mmol/L (3.5-5.1); Sodium 132 mmol/L (136-145); Total Protein 8.1 g/dL (6.4-8.2)
[2023-12-24 00:44] LABS: Influenza Virus A Antigen Negative; Influenza Virus B Antigen Negative; Internal Control Within Normal Limits; SARS-CoV-2 Ag POSITIVE (NEGATIVE)
[2023-12-24 00:51] LABS: PROCALCITONIN <0.05 ng/mL (0.00-0.50)
[2023-12-24 01:01] LABS: Lactate/Lactic Acid 2.7 mmol/L (0.4-2.0)
--- NOTE | 2023-12-24 01:20 | PC.NURSE ---
Discussed discharge paperwork and covid diagnosis with pt. all questions answered. work note provided. script sent to pharmacy. pt ambulated off unit in stable condition.
== END 2023-12-24 01:21 | disposition home or self-care (01) ==
PROVIDERS: Emergency Provider Emergency Medicine; PCP Nurse Practitioner Primary Care
DX: U07.1 COVID-19 (principal); Z79.899 Other long term (current) drug therapy; F17.210 Nicotine dependence, cigarettes, uncomplicated
CPT/HCPCS: 36415; 71045; 80053; 83605; 84145; 85025; 87040; 87070; 87804; 87811; 87880; 93005; 96374; 96375; 99285; J1885; J2405

== ENCOUNTER 2025-10-09 12:18 | Emergency (ER) | payer SELFPAY ==
[2025-10-09 12:22] VITALS: BP 148/100; PULSE 120; TEMP 37.2; O2SAT 97; BMI 33.8
--- NOTE | 2025-10-09 12:32 | PC.NURSE ---
no lips or tongue swelling
--- NOTE | 2025-10-09 12:38 | ED_ITS ---
HPI HPI - General Adult General Chief complaint: Extremity Problem, Nontraumatic Stated complaint: FACIAL SWELLING Time Seen by Provider: 10/09/25 12:29 Source: patient Mode of arrival: walk-in History of Present Illness HPI narrative: 50-year-old female presented to the emergency department for facial swelling is on the right side and she believes it is coming from her right upper dentition. Separately she noted some redness to the left upper eyelid. No drainage. She has had that for a few days. Related Data Previous Rx's ?Medication ?Instructions ?Recorded acetaminophen 300 mg-codeine 30 mg 1 tab PO Q6H PRN pa in 5 days #20 10/09/25 tablet tabs bacitracin 500 unit/gram eye 1 applic ophthalmic (eye) Q8H 7 10/09/25 ointment days #3.5 grams ibuprofen 800 mg tablet 800 mg PO Q8H PRN pain #20 t abs 10/09/25 penicillin V potassium 250 mg 250 mg PO QID 10 days #4 0 tabs 10/09/25 tablet Allergies Allergy/AdvReac Type Severity Reaction Status Date / Time azithromycin (From Zithromax) Allergy Intermediate Verified 06/03/23 12:38 Review of Systems ROS Narrative A ten point review of systems is negative except as noted above. PFSH PFSH Social History Smoking status: Current every day smoker Little interest or pleasure in doing things: not at all Feeling down, depressed, or hopeless: not at all Exam Narrative Exam Narrative: Nurses note and vital signs reviewed General:The patient appears well and in no apparent distress.Patient is resting comfortably on cart. Skin:Warm, dry, no pallor noted.There is no rash noted. Head:Normocephalic, atraumatic Eye: Normal conjunctiva, no drainage, there is some erythema at the lid margin of the left upper eyelid. Ears, Nose, Mouth, and Throat: oral mucosa is moist. Nares patent. No swelling to the floor of her mouth. She is handling oral secretions well. Dental caries is noted in the right upper dentition. She has swelling on the right side of her face, primarily below her eye. Cardiovascular:Regular Rate and Rhythm Respiratory:Patient is in no distress, no accessory muscle use, lungs are clear to auscultation, no wheezing, rales or rhonchi Back:non-tender GI: Soft and nontender Musculoskeletal: The patient has no evidence of calf tenderness, no pitting edema, symmetrical pulses noted bilaterally Neurological:A&O, normal speech Psychiatric:Cooperative Constitutional Vital Signs, click to edit/add: Last Vital Signs Temp 98.9 F 10/09/25 12:22 Pulse 120 H 10/09/25 12:22 Resp 20 10/09/25 12:22 BP 148/100 H 10/09/25 12:22 Pulse Ox 97 10/09/25 12:22 O2 Del Method Room Air 10/09/25 12:22 Course Vital Signs Vital signs: Vital Signs Temperature 98.9 F 10/09/25 12:22 Pulse Rate 120 H 10/09/25 12:22 Respiratory Rate 20 10/09/25 12:22 Blood Pressure 148/100 H 10/09/25 12:22 Pulse Oximetry 97 10/09/25 12:22 Oxygen Delivery Method Room Air 10/09/25 12:22 Temperature 98.9 F 10/09/25 12:22 Pulse Rate 120 H 10/09/25 12:22 Respiratory Rate 20 10/09/25 12:22 Blood Pressure 148/100 H 10/09/25 12:22 Pulse Oximetry 97 10/09/25 12:22 Oxygen Delivery Method Room Air 10/09/25 12:22 Medical Decision Making MDM Narrative Medical decision making narrative: She will be treated with bacitracin for blepharitis of the left eyelid and was given IM Ancef here for dental infection. She is prescribed penicillin, Tylenol 3, and ibuprofen. She has a dentist appointment in 2 days. Treatment diagnosis and follow-up were discussed with the patient. Differential Diagnosis Differential Diagnosis: Dental abscess, dental infection Discharge Plan Discharge Chief Complaint: Extremity Problem, Nontraumatic Clinical Impression: Dental infection, Blepharitis Patient Disposition: Home, Self-Care Time of Disposition Decision: 12:36 Condition: Good Mode of Transportation: Private Vehicle Prescriptions / Home Meds: New acetaminophen-codeine 300-30 mg tablet 1 tab PO Q6H PRN (Reason: pain) 5 Days Qty: 20 0RF penicillin V potassium 250 mg tablet 250 mg PO QID 10 Days Qty: 40 0RF ibuprofen 800 mg tablet 800 mg PO Q8H PRN (Reason: pain) Qty: 20 0RF bacitracin 500 unit/gram ointment 1 applic ophthalmic (eye) Q8H 7 Days Qty: 3.5 0RF Rx Instructions: Apply to eyelid margin, where the eyelashes come out your eyelid Print Language: Iranian Instructions: Dental Abscess (ED)
--- OUTSIDE RECORDS SUMMARY | 2025-10-09 12:41 | XMS_ITS | CCD ---
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 ? \.br\ One 3 oz (85 g) can of sardines or mackerel.\.br\ Most people need 1,000?1,500 mg of calcium a day. Talk to your dietitian about how much calcium is recommended for you.\.br\ Shopping\.br\ ? \.br\ Buy plenty of fresh fruits and vegetables. Most people do not need to avoid fruits and vegetables, even if these foods contain nutrients that may contribute to kidney stones.\.br\ ? \.br\ When shopping for convenience foods, choose:\.br\ ? \.br\ Whole pieces of fruit.\.br\ ? \.br\ Pre-made salads with dressing on the side.\.br\ ? \.br\ Low-fat fruit and yogurt smoothies.\.br\ ? \.br\ Avoid buying frozen meals or prepared deli foods. These can be high in sodium.\.br\ ? \.br\ Look for foods with live cultures, such as yogurt and kefir.\.br\ ? \.br\ Choose high-fiber grains, such as whole-wheat breads, oat bran, and wheat cereals.\.br\ Cooking\.br\ ? \.br\ Do not add salt to food when cooking. Place a salt shaker on the table and allow each person to add his or her own salt to taste.\.br\ ? \.br\Use vegetable protein, such as beans, textured vegetable protein (TVP), or tofu, instead of meat inpasta, casseroles, and soups.\.br\ Meal planning\.br\ ? \.br\ Eat less salt, if told by your dietitian. To do this:\.br\ ? \.br\ Avoid eating processed or pre-made food.\.br\ ? \.br\ Avoid eating fast food.\.br\ ? \.br\ Eat less animal protein, including cheese, meat, poultry, or fish, if told by your dietitian. To do this:\.br\ ? \.br\ Limit the number of times you have meat, poultry, fish, or ch eese each week. Eat a diet free of meat at least 2 days a week.\.br\ ? \.br\ Eat only one serving each day of meat, poultry, fish, or seafood.\.br\ ? \.br\ When you prepare animal protein, cut piecesinto small portion sizes. For most meat and fish, one serving is about the size of the palm of yourhand.\.br\ ? \.br\ Eat at least five servings of fresh fruits and vegetables each day. To do this:\.br\ ? \.br\ Keep fruits and vegetables on hand for snacks.\.br\ ? \.br\ Eat one piece of fruit or ahandful of berries with breakfast.\.br\ ? \.br\ Have a salad and fruit at lunch.\.br\ ? \.br\ Have two kinds of vegetables at dinner.\.br\ ? \.br\ Limit foods that are high in a substance called oxalate. These include:\.br\ ? \.br\ Spinach (cooked), rhubarb, beets, sweet potatoes, and Israeli chard.\.br\ ? \.br\ Peanuts.\.br\ ? \.br\ Potato chips, ukrainian fries, and baked potatoes with skin on.\.br\? \.br\ Nuts and nut products.\.br\ ? \.br\ Chocolate.\.br\ ? \.br\ If you regularly take a diuretic medicine, make sure to eat at least 1 or 2 servings of fruits or vegetables that are high in potassium each day. These include:\.br\ ? \.br\ Avocado.\.br\ ? \.br\ Banana.\.br\ ? \.br\ [place], prune,carrot, or tomato juice.\.br\ ? \.br\ Baked potato.\.br\ ? \.br\ Cabbage.\.br\ ? \.br\ Beans and split peas.\.br\ Lifestyle\.br\ \.br\ ? \.br\ Drink enough fluid to keep your urine pale yellow. This is the most important thing you can do. Spread your fluid intake throughout the day.\.br\ ? \.br\ If you drink alcohol:\.br\ ? \.br\ Limit how much you use to:\.br\ ? \.br\ 0?1 drink a day for women who are not .\.br\ ? \.br\ 0?2 drinks a day for men.\.br\ ? \.br\ Be aware of how much alcohol is in your drink. In the [place] one drink equals one 12 oz bottle of beer (355 mL), one 5 oz glass of wine (148 mL), or one 1? oz glass of hard liquor (44 mL).\.br\ ? \.br\ Lose weightif told by your health care provider. Work with your dietitian to find an eating plan and weight loss strategies that work best for you.\.br\ General information\.br\ ? \.br\ Talk to your health careprovider and dietitian about taking daily supplements. You may be told the following depending on your health and the cause of your kidney stones:\.br\ ? \.br\ Not to take supplements with vitamin C.\.br\ ? \.br\ To take a [facility] Educationon [phone] EducationNephrology Dietary Guidelines to Help Prevent Kidney Stones Kidney stones are deposits of minerals and salts that form inside your kidneys. Your risk of developing kidney stones may be greater depending on your diet, your lifestyle, the medicines you take, and whether you have certain medical conditions. Most people can lower their chances of developing kidney stones by following the instructions below. Your dietitian may give you more specific instructions depending on your overall health and the type of kidney stones you tend to develop. What are tips for following this plan? Reading food labels ? Choose foods with no salt added or low-salt labels. Limit your salt (sodium) intake to less than 1,500 mg a day. ? Choose foods with calcium for each meal and snack. Try to eat about 300 mg of calcium at each meal. Foods that contain 200?500 mg of calcium a serving include: ? 8 oz (237 mL) of milk, qaazoyn-lulqqmcjvago-fftjs milk, and calcium- fortifiedfruit juice. Calcium-fortified means that calcium has been added to these drinks. ? 8 oz (237 mL) of kefir, yogurt, and soy yogurt. ? 4 oz (114 g) of tofu. ? 1 oz (28 g) of cheese. ? 1 cup (150 g) of dried figs. ? 1 cup (91 g) of cooked broccoli. ? One 3 oz (85 g) can of sardines or mackerel. Most people need 1,000?1,500 mg of calcium a day. Talk to your dietitian about how much calcium is recommended for you. Shopping ? Buy plenty of fresh fruits and vegetables. Most people do not need to avoid fruits and vegetables, even if these foods contain nutrients that may contribute to kidney stones. ? When shopping for convenience foods, choose: ? Whole pieces of fruit. ? Pre-made salads with dressing on the side. ? Low-fat fruit and yogurt smoothies. ? Avoid buying frozen meals or prepared deli foods. These can be high in sodium. ? Look for foods with live cultures, such as yogurt and kefir. ? Choose high-fiber grains, such as whole-wheat breads, oat bran, and wheat cereals. Cooking ? Do not add salt to food when cooking. Place a salt shaker on the table and allow each person to add his or her own salt to taste. ? Use vegetable protein, such as beans, textured vegetable protein (TVP), or tofu, instead of meat in pasta, casseroles, and soups. Meal planning ? Eat less salt, if told by your dietitian. To do this: ? Avoid eating processed or pre-made food. ? Avoid eating fast food. ? Eat less animal protein, including cheese, meat, poultry, or fish, if told by your dietitian. To do this: ? Limit the number of times you have meat, poultry, fish, or cheese each week. Eat a diet free of meat at least 2 days a week. ? Eat only one serving each day of meat, poultry, fish, or seafood. ? When you prepare animal protein, cut pieces into small portion sizes. For most meat and fish, oneserving is about the size of the palm of your hand. ? Eat at least five servings of fresh fruits and vegetables each day. To do this: ? Keep fruits and vegetables on hand for snacks. ? Eat one piece of fruit or a handful of berries with breakfast. ? Have a salad and fruit at lunch. ? Have two kinds of vegetables at dinner. ? Limit foods that are high in a substance called oxalate. These include: ? Spinach (cooked), rhubarb, beets, sweet potatoes, and Israeli chard. ? Peanuts. ? Potato chips, ukrainian fries, and baked potatoes with skin on. ? Nuts and nut products. ? Chocolate. ? If you regularly take a diuretic medicine, make sure to eat at least 1 or 2 servings of fruits orvegetables that are high in potassium each day. These include: ? Avocado. ? Banana. ? [place], prune, carrot, or tomato juice. ? Baked potato. ? Cabbage. ? Beans and split peas. Lifestyle ? Drink enough fluid to keep your urine pale yellow. This is the most important thing you can do. Spread your fluid intake throughout the day. ? If you drink alcohol: ? Limit how much you use to: ? 0?1 drink a day for women who are not . ? 0?2 drinks a day for men. ? Be aware of how much alcohol is in your drink. In the [place] one drink equals one 12 oz bottle of beer (355 mL), one 5 oz glass of wine (148 mL), or one 1? oz glass of hard liquor (44 mL). ? Lose weight if told by your health care provider. Work with your dietitian to find an eating planand weight loss strategies that work best for you. General information ? Talk to your health care provider and dietitian about taking daily supplements. You may be told the following depending on your health and the cause of your kidney stones: ? Not to take supplements with vitamin C. ? To take a calcium supplement. ? To take a daily probiotic supplement. ? To take other supplements such as magnesium, fish oil, or vitamin B6. ? Take mkfd-qsm-ykxkdtv and prescription medicines only as told by your health care provider. Theseinclude supplements. What foods should I limit? Limit your in (more content not included)...[facility] HospitalRAD - MISCon [id number] Teo [id number]:[address] [facility] HospitalUrology Office/Clinic Noteon [phone] Office/Clinic NoteChief Complaint 2 week follow up w/ KUB HPI Staff Pt is here today for 2 week follow up w/ KUB done 06/22/23. *Tamsulosin 0.4 mg BID. Previous DX: ureteral stone w/ hydronephrosis. Dysuria: denies pain and burning Incomplete bladder emptying: denies Hematuria: denies visible blood Frequency: 5-8x a day Urgency: denies Nocturia: sometimes 1-2x Stream: denies hesitancy, strong stream Leaking: denies Post void dripping: denies Wearing pads/ Depends: denies Urge incontinence: denies Stress incontinence: yes Incontinence without Sensory Awareness: denies Abdominal pain: denies Flank pain: denies History of Present Illness Tests reviewed: reviewed UA, KUB I have reviewed the previous health record information and history for this patient from Dr. Umaña. I have reviewed and verified the staff HPI to be accurate for this encounter. There have been no associated fever, chills, flank pain, or blood in the urine. Denies any urinary infections since last encounter. Review of Systems PHQ Score Initial Depression Screen Score: 0 ROS - Provider Constitutional: denies weight loss, denies hot flashes. Eyes: denies eye problems. Gastrointestinal: denies nausea, denies vomiting. Cardiovascular: denies chest pain or angina. Integumentary: no dryness Musculoskeletal: denies musculoskeletal symptoms. ENMT: denies otolaryngeal symptoms. Respiratory: no shortness of breath. Heme/Lymph: denies easy bleeding tendency, denies easy bruising tendency. Psychiatric: no confusion, no anxiety. Genitourinary: See HPI. Physical Exam Vitals & Measurements HR: 76(Peripheral) BP: 135/82 HT: 64 in HT: 163 cm WT: 89.3 kg WT: 196.46 lb BMI: 33.61 General Appearance: alert , no acute distress, well nourished, well developed female. Genitourinary: bladder nonpalpable, no flank pain. Assessment/Plan 1. Ureteral stone with hydronephrosis (N13.2: Hydronephrosis with renal and ureteral calculous obstruction) CT AP w/o con 06/03/23 - Mild L hydronephrosis and ureter secondary to a partially obstructing 5 x 4 x 4 mm stone w/in distal ureter at UVJ. Two additional small stones w/in distal L ureter. Unremarkable R kidney and ureter. XR Ab 06/08/23 - Stones in the Low left pelvis suspected to be phleboliths and/or a distal ureterolith. No R renal or ureteral stones.[1] KUB done 06/22/23 showed probable punctuate calculus of left distal ureter. Pt to stop Tamsulosin and complete a metabolic workup. 2. Kidney stone (N20.0: Calculus of kidney) KUB done 06/22/23 showed no calculi in the kidneys. UA today shows moderate blood. Pt passed her stones. Will send for analysis. 3. Proteinuria (R80.9: Proteinuria, unspecified) UA today shows 100 mg/dL protein. Follow-up With When Contact Information GILES SOTO, Giuseppe Zamora, URL [facility] [address], [place] [id number] [phone] Additional Instructions: 3 mos Patient Education Dietary Guidelines to Help Prevent Kidney Stones ISalina, personally scribed for Dr. Umaña on 06/23/2023 11:48:59. . Documentation recorded by the Salina lai, accurately reflects the services(s) I performed and decisions made by me. Authenticated by Dr. Umaña on 06/23/2023 11:50:55. Problem List/Past Medical History Ongoing Anemia Headache Hypertension Kidney stone Proteinuria Seizures Smoker Ureteral stone with hydronephrosis Historical No qualifying data Procedure/Surgical History Colonoscopy, Hysterectomy. Medications Aspirin Low Dose 81 mg oral enteric coated tablet ciprofloxacin 500 mg Tab diclofenac sodium 75 mg Oral EC Tab lisinopril 10 mg Tab magnesium oxide 400 mg Tab naratriptan 2.5 mg Tab tamsulosin 0.4 mg Cap, 0.4 mg= 1 cap(s), Oral, BID Vitamin B2 100 mg oral tablet Allergies Latex (Eruption) Zyban Advantage Pack (Swelling) Social History Tobacco 10 or more cigarettes (1/2 pack or more)/day in last 30 days, Smoker, current status unknown Tobacco Use:. Never Smokeless Tobacco Use:. Cigarettes, Started age 15.0 Years. Yes, 06/23/2023 Family History Hypertension: Mother and Father. Lung cancer: Father. Lymphoma: Sister. Primary malignant neoplasm of female breast: Aunt. Lab Results Ambulatory Point of Care Results Bilirubin Urine Dipstick: Negative (06/23/23 11:04:00) Blood Urine Dipstick: 2+ Moderate (06/23/23 11:04:00) Glucose Urine Dipstick: Negative (06/23/23 11:04:00) Ketones Urine Dipstick: Negative (06/23/23 11:04:00) Leukocytes Urine Dipstick: Negative (06/23/23 11:04:00) Nitrite Urine Dipstick: Negative (06/23/23 11:04:00) Protein Urine Dipstick: 2+ (100 mg/dl) (06/23/23 11:04:00) Specific [place] Urine Dipstick: 1.025 (06/23/23 11:04:00) Urine Appearance Urine Dipstick: Clear (06/23/23 11:04:00) Urine Color Urine Dipstick: Yellow (06/23/23 11:04:00) Urobilinogen Urine Dipstick: Normal 0.2-1 EU/dl (06/23/23 11:04:00) pH Uri (more content not included)...[facility] HospitalComment on above:Result Comment: Electronically Signed By: Giuseppe UMAÑA MD\.br\Date and Time Signed: 06/23/23 11:50 EDT\.br\Electronically Co-Signed By: Salina Babb.preston\Date and Time Co-Signed: 06/23/23 11:49 EDTRAD - MISCon [id number] - [id number]:127[facility] HospitalFormson [id number] [id number]:127[facility] HospitalAmbulatory Visit Summaryon [id number] Visit Summary MARJORIE WEDNESDAY :1975 Visit Date:06/09/2023 Ambulatory Visit Instructions Your Diagnosis Ureteral stone with hydronephrosis Kidney stone Tests Performed Urnls Dip Stick Auto w/o Microscopy POC [id number] XR Abdomen 1 View -- Results Pending -- Please visit your patient portal for your results or contact your primary care physician. Your Care Team Attending Physician - Giuseppe UMAÑA MD Primary Care Physician - NONE, XXXX This Is Your Medications List tamsulosin (tamsulosin 0.4 mg Cap) Contact prescribing physician if questions or concerns aspirin (Aspirin Low Dose 81 mg oral enteric coated tablet) ciprofloxacin (ciprofloxacin 500 mg Tab) diclofenac (diclofenac sodium 75 mg Oral EC Tab) lisinopril (lisinopril 10 mg Tab) magnesium oxide (magnesium oxide 400 mg Tab) naratriptan (naratriptan 2.5 mg Tab) riboflavin (Vitamin B2 100 mg oral tablet) Procedures Performed Colonoscopy, Hysterectomy. Discharge Vitals Heart Rate (Peripheral) 91 Blood Pressure 145/90 Height 163 cm Height 64 in Weight 90.5 kg Weight 199.1 lb BMI 34.06 What to do next Scheduled Follow-Up Appointments Wednesday 10:45 AM EDT With: Giuseppe UMAÑA MD [facility]Patient Educationon [phone] EducationNephrology Dietary Guidelines to Help Prevent Kidney Stones Kidney stones are deposits of minerals and salts that form inside your kidneys. Your risk of developing kidney stones may be greater depending on your diet, your lifestyle, the medicines you take, and whether you have certain medical conditions. Most people can lower their chances of developing kidney stones by following the instructions below. Your dietitian may give you more specific instructions depending on your overall health and the type of kidney stones you tend to develop. What are tips for following this plan? Reading food labels ? Choose foods with no salt added or low-salt labels. Limit your salt (sodium) intake to less than 1,500 mg a day. ? Choose foods with calcium for each meal and snack. Try to eat about 300 mg of calcium at each meal. Foods that contain 200?500 mg of calcium a serving include: ? 8 oz (237 mL) of milk, njrieuf-sfsjoxalobui-iqrqb milk, and calcium- fortifiedfruit juice. Calcium-fortified means that calcium has been added to these drinks. ? 8 oz (237 mL) of kefir, yogurt, and soy yogurt. ? 4 oz (114 g) of tofu. ? 1 oz (28 g) of cheese. ? 1 cup (150 g) of dried figs. ? 1 cup (91 g) of cooked broccoli. ? One 3 oz (85 g) can of sardines or mackerel. Most people need 1,000?1,500 mg of calcium a day. Talk to your dietitian about how much calcium is recommended for you. Shopping ? Buy plenty of fresh fruits and vegetables. Most people do not need to avoid fruits and vegetables, even if these foods contain nutrients that may contribute to kidney stones. ? When shopping for convenience foods, choose: ? Whole pieces of fruit. ? Pre-made salads with dressing on the side. ? Low-fat fruit and yogurt smoothies. ? Avoid buying frozen meals or prepared deli foods. These can be high in sodium. ? Look for foods with live cultures, such as yogurt and kefir. ? Choose high-fiber grains, such as whole-wheat breads, oat bran, and wheat cereals. Cooking ? Do not add salt to food when cooking. Place a salt shaker on the table and allow each person to add his or her own salt to taste. ? Use vegetable protein, such as beans, textured vegetable protein (TVP), or tofu, instead of meat in pasta, casseroles, and soups. Meal planning ? Eat less salt, if told by your dietitian. To do this: ? Avoid eating processed or pre-made food. ? Avoid eating fast food. ? Eat less animal protein, including cheese, meat, poultry, or fish, if told by your dietitian. To do this: ? Limit the number of times you have meat, poultry, fish, or cheese each week. Eat a diet free of meat at least 2 days a week. ? Eat only one serving each day of meat, poultry, fish, or seafood. ? When you prepare animal protein, cut pieces into small portion sizes. For most meat and fish, oneserving is about the size of the palm of your hand. ? Eat at least five servings of fresh fruits and vegetables each day. To do this: ? Keep fruits and vegetables on hand for snacks. ? Eat one piece of fruit or a handful of berries with breakfast. ? Have a salad and fruit at lunch. ? Have two kinds of vegetables at dinner. ? Limit foods that are high in a substance called oxalate. These include: ? Spinach (cooked), rhubarb, beets, sweet potatoes, and Israeli chard. ? Peanuts. ? Potato chips, ukrainian fries, and baked potatoes with skin on. ? Nuts and nut products. ? Chocolate. ? If you regularly take a diuretic medicine, make sure to eat at least 1 or 2 servings of fruits orvegetables that are high in potassium each day. These include: ? Avocado. ? Banana. ? [place], prune, carrot, or tomato juice. ? Baked potato. ? Cabbage. ? Beans and split peas. Lifestyle ? Drink enough fluid to keep your urine pale yellow. This is the most important thing you can do. Spread your fluid intake throughout the day. ? If you drink alcohol: ? Limit how much you use to: ? 0?1 drink a day for women who are not . ? 0?2 drinks a day for men. ? Be aware of how much alcohol is in your drink. In the [place] one drink equals one 12 oz bottle of beer (355 mL), one 5 oz glass of wine (148 mL), or one 1? oz glass of hard liquor (44 mL). ? Lose weight if told by your health care provider. Work with your dietitian to find an eating planand weight loss strategies that work best for you. General information ? Talk to your health care provider and dietitian about taking daily supplements. You may be told the following depending on your health and the cause of your kidney stones: ? Not to take supplements with vitamin C. ? To take a calcium supplement. ? To take a daily probiotic supplement. ? To take other supplements such as magnesium, fish oil, or vitamin B6. ? Take orbc-gud-xrocrbe and prescription medicines only as told by your health care provider. Theseinclude supplements. What foods should I limit? Limit your in (more content not included)...[facility] HospitalRAD - MISCon [id number] - [id number]:[address] [facility] HospitalUrology Office/Clinic Noteon [phone] Office/Clinic NoteChief Complaint New Pt/Hospital follow up HPI Staff Wednesday is a 48 yo female new pt following up to [facility] ER. As of 06/08/23, KUB done 06/08/23. CT AP w/o con 06/03/23 - Mild L hydronephrosis and ureter secondary to a partially obstructing 5 x 4 x 4 mm stone w/in distal ureter at UVJ. Two additional small stones w/in distal L ureter. Tiny nonobstructing stone LIP. Unremarkable R kidney and ureter. Transvaginal US done 06/03/23. Dysuria: denies pain or burning Incomplete bladder emptying: sometimes Hematuria: denies visible blood, UA shows SMALL Frequency: 10x or more a day Urgency: denies Nocturia: 1-2x a night Stream: denies hesitancy, yes has weak stream Leaking: yes Post void dripping: denies Wearing pads/ Depends: denies Urge incontinence: denies Stress incontinence: yes Incontinence without Sensory Awareness: denies Abdominal pain: denies Flank pain: denies Sexual complaints: denies History of Present Illness Tests reviewed: reviewed UA, ER records, KUB, CT. I have reviewed the previous health record information and history for this patient from [facility]. I have reviewed and verified the staff HPI to be accurate for this encounter. There have been no associated fever, chills, flank pain, or blood in the urine. Denies any urinary infections since last encounter. Review of Systems PHQ Score Initial Depression Screen Score: 0 ROS - Provider Constitutional: denies weight loss, denies hot flashes. Eyes: denies eye problems. Gastrointestinal: denies nausea, denies vomiting. Cardiovascular: denies chest pain or angina. Integumentary: no dryness Musculoskeletal: denies musculoskeletal symptoms. ENMT: denies otolaryngeal symptoms. Respiratory: no shortness of breath. Heme/Lymph: denies easy bleeding tendency, denies easy bruising tendency. Psychiatric: no confusion, no anxiety. Genitourinary: See HPI. Physical Exam Vitals & Measurements HR: 91(Peripheral) BP: 145/90 HT: 64 in HT: 163 cm WT: 90.5 kg WT: 199.1 lb BMI: 34.06 General Appearance: alert , no acute distress, well nourished, well developed female. Head: normocephalic . Eyes: normal orbit and globe. ENMT: normal examination of external ears. Chest: Lungs CTA, respirations non labored . Cardiovascular: regular rate and rhythm. Abdomen: soft, non distended, no tenderness, no mass or organomegaly, no hernia. Genitourinary: bladder nonpalpable, no flank tenderness. Lymph Nodes: unremarkable palpation of the cervical area. Skin: warm, dry, no bruising. Psychiatric: cooperative, affect appropriate for age, normal judgement, euthymic mood. Assessment/Plan Wednesday is a 48 yo female new pt following up to [facility] ER. Discharged with Cipro, Flomax, and Diclofenac. 1. Ureteral stone with hydronephrosis (N13.2: Hydronephrosis with renal and ureteral calculous obstruction) CT AP w/o con 06/03/23 - Mild L hydronephrosis and ureter secondary to a partially obstructing 5 x 4 x 4 mm stone w/in distal ureter at [facility]. Two additional small stones w/in distal L ureter. Unremarkable R kidney and ureter. XR Ab 06/08/23 - Stones in the Low left pelvis suspected to be phleboliths and/or a distal ureterolith. No R renal or ureteral stones. UA today shows small blood, neg for infection. Pain had improved since ER, still having abdominal discomfort. Reviewed imaging with pt. No prior hx of stones. Pt's daughter recently saw Dr. Oliveira for kidney stones. Recommended pt to increase fluid intake to ten to twelve 16 oz bottles a day, preferably water, clear pop, and sugar free lemonade. Has been shaky the past couple of days, no fever josh sawant Has been taking Diclofenac at night because it makes her drowsy, does help pain though. Pain nottoo bad during the day. Follow up 2 wks with KUB or sooner if needed. Pt understands and agrees with plan. Pt to call or goto the ER if he were to experience fever, shaking, chills, uncontrolled nausea, vomiting, or pain. Would consider surgical intervention at this time. -Start straining urine, strainer given. Pt to notify office and save stone if she passes it. -Cont Flomax for MET. New script sent for BID. -Increase fluid intake for MET and prevention. -Take Motrin during the day for pain. Cont Diclofenac at night. 2. Kidney stone (N20.0: Calculus of kidney) CT AP w/o con 06/03/23 - Tiny nonobstructing stone LIP. Unremarkable R kidney and ureter. KUB 06/08/23 - No L renal stones mentioned. No R sided renal stones. Follow-up With When Contact Information GILES SOTO, Giuseppe Zamora, [facility] [address], [place] [address]- Additional Instructions: 2 wks with KUB Patient Education Dietary Guidelines to Help Prevent Kidney Stones IDaily, personally scribed for Dr. Umaña on 06/09/2023 13:30:26. . Documentation recorded by the scribe, Daily Mathias, accurately reflects the services(s) I performed and decisions made by me. (more content not included)... [facility] Warren HospitalComment on above:Result Comment: Electronically Signed By: Giuseppe UMAÑA MD\.br\Date and Time Signed: 06/09/23 13:33 EDT\.br\Electronically Co-Signed By: Daily Mathias\.br\Date and Time Co- Signed: 06/09/23 13:30 EDTRAD - CT Reporton [id number] - CT Report [id number]:127NormOhioHealth Arthur G.H. Bing, MD, Cancer CenterAlkaline Phosphatase Isoenzymeon 31-60-2215NSD [Catalytic activity/Vol]168 U/XBege02-514LcivnqzbgAdena Pike Medical CenterComment on above:Order Comment: Reason for Exam Elevated LFTs;Fatty liverPerformed By: #### PT, FE and TIBC, CHIDI, HEPATIC, CBC, LIPID, LDLD #### [facility] [address] #### SMAB, A1AT, HBSAB, CHRISTEN RFX ADD ON, HBCAB, HBSAG, HCV RX PCR, CERULOP, MITOM2 #### [facility] ,Bone Qsnzcxza15 %Ywiyno41-18WzynjjuzlAdena Pike Medical CenterComment on above: Order Comment: Reason for Exam Elevated LFTs;Fatty liverPerformed By: #### PT, FE and TIBC, CHIDI, HEPATIC, CBC, LIPID, LDLD #### [facility] [address] [place] [address] #### SMAB, A1AT, HBSAB, CHRISTEN RFX ADD ON, HBCAB, HBSAG, HCV RX PCR, CERULOP, MITOM2 #### [facility] ,Intestinal Fraction1 %Normal0-18FKindred Hospital DaytonComment on above:Order Comment: Reason for Exam Elevated LFTs;Fatty liverResult Comment: Performed at: [address] [id number] Psychiatric Nurse: Camilo Shaffer PhD, Phone: [phone] PERFORMED BY: [place] [address] PATHOLOGIST TOE STRIPPER ILDEFONSO LAROSE M.D.Performed By: #### PT, FE and TIBC, CHIDI, HEPATIC, CBC, LIPID, LDLD #### [facility] [address] [place] [address] [place] #### SMAB, A1AT, HBSAB, CHRISTEN RFX ADD ON, HBCAB, HBSAG, HCV RX PCR, CERULOP, MITOM2 #### [facility] ,Liver Ftilnbrb98 %Dsausb02-73BvdrxrzkvAdena Pike Medical CenterComment on above: Order Comment: Reason for Exam Elevated LFTs;Fatty liverPerformed By: #### PT, FE and TIBC, CHIDI, HEPATIC, CBC, LIPID, LDLD #### [facility] [address] #### SMAB, A1AT, HBSAB, CHRISTEN RFX ADD ON, HBCAB, HBSAG, HCV RX PCR, CERULOP, MITOM2 #### [facility] ,US THYROID FN ASP BXon [id number] THYROID FN ASP BX Begin Addendum #1 COLLECTED DATE/TIME: 10/21/2022, 12:02 EST Final Diagnosis Report for THE [employer], [place] (A/B) RIGHT THYROID INFERIOR NODULE; FINE NEEDLE ASPIRATION: - BENIGN FOLLICULAR NODULE (C/D) LEFT THYROID SUPERIOR NODULE; FINE NEEDLE ASPIRATION: - HYPOCELLULAR FOLLICULAR CELLS, INSUFFICIENT FOR DIAGNOSIS, SEE NOTE. NOTE: A repeat aspiration should be considered if clinically indicated. Original Report EXAMINATION: US THYROID FN ASP BX HISTORY: Thyroid nodule COMPARISON: Ultrasound thyroid 09/30/2022 TECHNIQUE: After obtaining informed consent, ultrasound-guided fine needle aspiration was performed in the usual sterile manner. FINDINGS: IMAGING: Ultrasound. BIOPSY NEEDLE: 25-gauge; 3 separate passes of both nodules. LOCATION: Inferior right lobe 2.8 cm heterogeneous nodule. Superior left lobe 1.9 cm heterogeneous nodule. SPECIMEN TYPE: Cellular tissue. LOCAL ANESTHETIC: Buffered Xylocaine. COMPLICATIONS: None. LABORATORY: Prepared slide smears and washings for cell block evaluation. OTHER: Negative. PATHOLOGY: Pending. An addendum will be added when results are available. IMPRESSION: 1. Uneventful ultrasound guided fine needle aspiration (FNA). 2. Pathology results are pending.NormalThe Glenbeigh HospitalUS THYROIDon [id number] THYROID Begin Addendum #1 Comparison: Ultrasound thyroid 02/15/2018 Increased number of nodules and increased size of previously seen thyroid nodules bilaterally. Ultrasound-guided tissue sampling of the right lobe 2.9 cm nodule and left lobe 1.9 cm nodule is recommended. Original Report EXAMINATION: US THYROID HISTORY: Non-toxic multinodular goiter COMPARISON: No relevant comparison available. FINDINGS: RIGHT LOBE: Contains several nodules, the largest 3 are: Inferior pole 2.9 cm TR 4, inferior pole 1.6 cm TR 2, midpole 0.7 cm TR 4. Lobe size: 6.2 x 2.0 x 1.7 cm LEFT LOBE: Contains several nodules, the largest 3 are: Superior pole 1.9 cm TR 4, inferior pole 1.3 cm TR 4, inferior pole 1.3 cm TR 3. Lobe size: 5.9 x 1.7 x 2.0 cm ISTHMUS: Contains a 1.5 cm TR 3 nodule. Thickness: 7 mm IMPRESSION: 1. Heterogeneous multinodular thyroid gland. Consider ultrasound-guided tissue sampling of the right lobe 2.9 cm nodule and left lobe 1.9 cm nodule. TR4 (moderately suspicious): If > 1.0 cm Follow-up ultrasound in 1, 2, 3, and 5 years. If > 1.5 cm fine needle aspiration (FNA). TR3 (mildly suspicious): > 1.5 cm, follow-up ultrasound in 1, 3, and 5 years. > 2.5 cm, fine needle aspiration.NormalThe [facility] Reflex Testingon [id number] with ReflexPositiveCritically abnormalNegativeAdena Pike Medical CenterComment on above:Order Comment: Reason for Exam Elevated LFTs;Fatty liverPerformed By: #### PT, FE and TIBC, CHIDI, HEPATIC, CBC, LIPID, LDLD #### [facility] [address] [place] [address] [place] #### SMAB, A1AT, HBSAB, CHRISTEN RFX ADD ON, HBCAB, HBSAG, HCV RX PCR, CERULOP, MITOM2 #### [facility] ,Anti-Centromere B Antibodies<0.1Gzsveh8.0-0.9[facility] Comment on above:Order Comment: Reason for Exam Elevated LFTs;Fatty liver Performed By: #### PT, FE and TIBC, CHIDI, HEPATIC, CBC, LIPID, LDLD #### [facility] [address] [place] [address] [place] #### SMAB, A1AT, HBSAB, CHRISTEN RFX ADD ON, HBCAB, HBSAG, HCV RX PCR, CERULOP, MITOM2 #### [facility] ,Anti-dsDNA(DBL)Xx8Bmjqgw7-7ErjyslnmlAdena Pike Medical CenterComment on above: Order Comment: Reason for Exam Elevated LFTs;Fatty liverResult Comment: Negative <5 Equivocal 5 - 9 Positive >9Performed By: #### PT, FE and TIBC, CHIDI, HEPATIC, CBC, LIPID, LDLD #### [address] #### SMAB, A1AT, HBSAB, CHRISTEN RFX ADD ON, HBCAB, HBSAG, HCV RX PCR, CERULOP, MITOM2 #### [facility] ,Anti-RNP1.3High0.0-0.9Adena Pike Medical CenterComment on above:Order Comment: Reason for Exam Elevated LFTs;Fatty liverPerformed By: #### PT, FE and TIBC, CHIDI, HEPATIC, CBC, LIPID, LDLD #### [address] #### SMAB, A1AT, HBSAB, CHRISTEN RFX ADD ON, HBCAB, HBSAG, HCV RX PCR, CERULOP, MITOM2 #### [facility] ,Anti-Meeks Antibodies<0.0Frrfxp9.0-0.9Adena Pike Medical CenterComment on above:Order Comment: Reason for Exam Elevated LFTs;Fatty liverPerformed By: #### PT, FE and TIBC, CHIDI, HEPATIC, CBC, LIPID, LDLD #### [place] [address] [place] #### SMAB, A1AT, HBSAB, CHRISTEN RFX ADD ON, HBCAB, HBSAG, HCV RX PCR, CERULOP, MITOM2 #### [facility] ,Chromatin Antibody<0.7Pwqkgh8.0-0.9Adena Pike Medical CenterComment on above:Order Comment: Reason for Exam Elevated LFTs;Fatty liverPerformed By: #### PT, FE and TIBC, CHIDI, HEPATIC, CBC, LIPID, LDLD #### [place] [address] [place] #### SMAB, A1AT, HBSAB, CHRISTEN RFX ADD ON, HBCAB, HBSAG, HCV RX PCR, CERULOP, MITOM2 #### [facility] ,SHAVONNE-1 Antibody<0.0Rpsgcy9.0-0.9Adena Pike Medical CenterComment on above:Order Comment: Reason for Exam Elevated LFTs;Fatty liverPerformed By: #### PT, FE and TIBC, CHIDI, HEPATIC, CBC, LIPID, LDLD #### [facility] [address] [place] [address] [place] #### SMAB, A1AT, HBSAB, CHRISTEN RFX ADD ON, HBCAB, HBSAG, HCV RX PCR, CERULOP, MITOM2 #### [facility] ,Scleroderma 70 Antibodies<0.0Exaifu3.0-0.[address] [place] [address] Comment on above:Order Comment: Reason for Exam Elevated LFTs;Fatty liver Performed By: #### PT, FE and TIBC, CHIDI, HEPATIC, CBC, LIPID, LDLD #### [facility] [address] [place] [address] [place] #### SMAB, A1AT, HBSAB, CHRISTEN RFX ADD ON, HBCAB, HBSAG, HCV RX PCR, CERULOP, MITOM2 #### [facility] ,See Below:Normal.Adena Pike Medical CenterComment on above:Order Comment: Reason for Exam Elevated LFTs;Fatty liverResult Comment: Autoantibody Disease Association Condition Frequency --------- Antinuclear Antibody, SLE, mixed connective Direct (CHRISTEN-D) tissue diseases --------- dsDNA SLE 40 - 60% --------- Chromatin Drug induced SLE 90% SLE 48 - 97% --------- SSA (Ro) SLE 25 - 35% Sjogren's Syndrome 40 - 70% Lupus 100% --------- SSB (La) SLE 10% Sjogren's Syndrome 30% --------- Sm (anti-Meeks) SLE 15 - 30% --------- ESCALATOR MECHANIC Mixed Connective Tissue Disease 95% (U1 nRNP, SLE 30 - 50% anti-ribonucleoprotein) Polymyositis and/or Dermatomyositis 20% --------- Scl-70 (antiDNA Scleroderma (diffuse) 20 - 35% topoisomerase) Crest 13% --------- Shavonne-1 Polymyositis and/or Dermatomyositis 20 - 40% --------- Centromere B Scleroderma - Crest variant 80% Performed at: [facility] [address] [id number] Psychiatric Nurse: Camilo Shaffer PhD, Phone: [phone] By: #### PT, FE and TIBC, CHIDI, HEPATIC, CBC, LIPID, LDLD #### [facility] [address] [place] [address] [place] #### SMAB, A1AT, HBSAB, CHRISTEN RFX ADD ON, HBCAB, HBSAG, HCV RX PCR, CERULOP, MITOM2 #### [facility] ,SS-A/Ro Sjogrens Antibody<0.1Xdzrqe7.0-0.[address] [place] [address] Comment on above:Order Comment: Reason for Exam Elevated LFTs;Fatty liver Performed By: #### PT, FE and TIBC, CHIDI, HEPATIC, CBC, LIPID, LDLD #### [facility] [address] [place] [address] [place] #### SMAB, A1AT, HBSAB, CHRISTEN RFX ADD ON, HBCAB, HBSAG, HCV RX PCR, CERULOP, MITOM2 #### [facility] ,SS-B/La Sjogrens Antibody<0.1Kmxbku2.0-0.[address] [place] [address] Comment on above:Order Comment: Reason for Exam Elevated LFTs;Fatty liver Performed By: #### PT, FE and TIBC, CHIDI, HEPATIC, CBC, LIPID, LDLD #### [facility] [address] [place] [address] [place] #### SMAB, A1AT, HBSAB, CHRISTEN RFX ADD ON, HBCAB, HBSAG, HCV RX PCR, CERULOP, MITOM2 #### [facility] ,Actin smooth muscle IgG Ab [Units/volume] in SerumOrdered By: Hroacio Vazquez on 49-50-7789Jfbsd smooth muscle IgG Qn (S)9 Units0-19Adena Pike Medical CenterComment on above:Negative 0 - 19 Weak positive 20 - 30 Moderate to strong positive >30 Actin Antibodies are foundin 52-85% of patients with autoimmune hepatitis or chronic active hepatitis and in 22% of patients with primary biliary cirrhosis.Albumin [Mass/volume] in Serum or PlasmaOrdered By: Horacio Vazquez on 93-62-9592Hffwttx [Mass/Vol]3.6 g/dL3.2-5.5FKindred Hospital DaytonAlpha 1 Anti-Trypsinon 62-71-9738Ulgue 1 Anti-Tfelnqh249 mg/dLNormal 101-187Adena Pike Medical CenterComment on above:Order Comment: Reason for Exam Elevated LFTs;Fatty liverResult Comment: Performed at: - [facility] [place] [id number] Psychiatric Nurse: Camilo Shaffer PhD, Phone: [phone] By: #### PT, FE and TIBC, CHIDI, HEPATIC, CBC, LIPID, LDLD #### [facility] [address] #### SMAB, A1AT, HBSAB, CHRISTEN RFX ADD ON, HBCAB, HBSAG, HCV RX PCR, CERULOP, MITOM2 #### [facility] ,Basophils Auto (Bld) [#/Vol]Ordered By: Horacio Vazquez on 15-64-6405Rsvtkkqnl (Bld) [#/Vol]N/Cleveland ClinicBasophils/100 WBC Auto (Bld) Ordered By: Horacio Vazquez on 44-17-3831Cnayqhscu/100 WBC (Bld)N/Cleveland ClinicCT biopsyOrdered By: Horacio Vazquez on 09-08-2022 Transferrin [Mass/Vol]197 mg/wX212-028XwyphefuaAdena Pike Medical Center Ceruloplasminon 64-49-3001Mpkrajojdzdyt55.3 mg/sSRdamaf92.0-39.0Adena Pike Medical CenterComment on above:Order Comment: Reason for Exam Elevated LFTs;Fatty liverResult Comment: PERFORMED BY: [facility] [address] [facility] [place] [address] PATHOLOGIST TOE STRIPPER ILDEFONSO LAROSE M.D.Performed By: #### PT, FE and TIBC, CHIDI, HEPATIC, CBC, LIPID, LDLD #### [facility] [address] [place] [address] [place] #### SMAB, A1AT, HBSAB, CHRISTEN RFX ADD ON, HBCAB, HBSAG, HCV RX PCR, CERULOP, MITOM2 #### [facility] ,Cholesterol [Mass/volume] in Serum or PlasmaOrdered By: Horacio Vazquez on 64-96-8984Wpaddikvalz [Mass/Vol]255 mg/xZ774-134KtxrpipdlAdena Pike Medical CenterComment on above:Chol less than 200 mg/dl low riskChol 201-239 mg/dl borderline riskChol 240 mg/dl and greater high riskCholesterol in LDL Calc [Mass/Vol]Ordered By: Horacio Vazquez on 92-79-5379Uvgrccfndbt in LDL [Mass/Vol] [facility] Hospital - AkronComment on above:Test not performed Cholesterol in VLDL Calc [Mass/Vol]Ordered By: Horacio Vazquez on 09-08-2022 Cholesterol in VLDL [Mass/Vol][facility] - AkronComment on above:Test not performedDiff and CBCon 48-97-4615Ugjhxgkmduo/100 WBC (Bld)3 % Normal1-3FKindred Hospital DaytonComment on above:Order Comment: Reason for Exam Elevated LFTs;Fatty liverPerformed By: #### DIFF CBC #### [facility] [address] [place] [address] USAErythrocyte distribution width (RBC) [Ratio]13.9 %Normal 11.9-15.3FKindred Hospital DaytonComment on above:Order Comment: Reason for Exam Elevated LFTs;Fatty liverPerformed By: #### DIFF CBC #### [facility] [address] [place] [address] USAPerformed By: #### PT, FE and TIBC, CHIDI, HEPATIC, CBC, LIPID, LDLD #### [address] #### SMAB, A1AT, HBSAB, CHRISTEN RFX ADD ON, HBCAB, HBSAG, HCV RX PCR, CERULOP, MITOM2 #### [facility] ,Hematocrit (Bld) [Volume fraction]42.1 %Nnzlrc90.0-46.4FKindred Hospital DaytonComment on above:Order Comment: Reason for Exam Elevated LFTs;Fatty liverPerformed By: #### DIFF CBC #### [place] [address] USAPerformed By: #### PT, FE and TIBC, CHIDI, HEPATIC, CBC, LIPID, LDLD #### [address] #### SMAB, A1AT, HBSAB, CHRISTEN RFX ADD ON, HBCAB, HBSAG, HCV RX PCR, CERULOP, MITOM2 #### [facility] ,Hemoglobin (Bld) [Mass/Vol]14.5 g/bKLoqmtx80.8-15.4FKindred Hospital DaytonComment on above:Order Comment: Reason for Exam Elevated LFTs;Fatty liver Performed By: #### DIFF CBC #### [place] [address] USAPerformed By: #### PT, FE and TIBC, CHIDI, HEPATIC, CBC, LIPID, LDLD #### [place] [address] [place] #### SMAB, A1AT, HBSAB, CHRISTEN RFX ADD ON, HBCAB, HBSAG, HCV RX PCR, CERULOP, MITOM2 #### [facility] ,Lymphocytes/100 WBC (Bld)53 %Psmn71-54VzziapqvzAdena Pike Medical CenterComment on above:Order Comment: Reason for Exam Elevated LFTs;Fatty liverPerformed By: #### DIFF CBC #### [place] [address] USAMCH (RBC) [Entitic mass]35.0 igCble77.7-34.3FKindred Hospital DaytonComment on above:Order Comment: Reason for Exam Elevated LFTs;Fatty liverPerformed By: #### DIFF CBC #### [place] [address] USAPerformed By: #### PT, FE and TIBC, CHIDI, HEPATIC, CBC, LIPID, LDLD #### [place] [address] [place] #### SMAB, A1AT, HBSAB, CHRISTEN RFX ADD ON, HBCAB, HBSAG, HCV RX PCR, CERULOP, MITOM2 #### [facility] ,MCV (RBC) [Entitic vol]101.7 zUYgzj42-199AlebqgtzdAdena Pike Medical Center Comment on above:Order Comment: Reason for Exam Elevated LFTs;Fatty liver Performed By: #### DIFF CBC #### [place] [address] USAPerformed By: #### PT, FE and TIBC, CHIDI, HEPATIC, CBC, LIPID, LDLD #### [address] #### SMAB, A1AT, HBSAB, CHRISTEN RFX ADD ON, HBCAB, HBSAG, HCV RX PCR, CERULOP, MITOM2 #### [facility] ,Mean Corpuscular HGB Conc34.4 g/cFDuigxe69.0-35.0Adena Pike Medical CenterComment on above:Order Comment: Reason for Exam Elevated LFTs;Fatty liver Performed By: #### DIFF CBC #### [place] [address] USAPerformed By: #### PT, FE and TIBC, CHIDI, HEPATIC, CBC, LIPID, LDLD #### [place] [address] [place] #### SMAB, A1AT, HBSAB, CHRISTEN RFX ADD ON, HBCAB, HBSAG, HCV RX PCR, CERULOP, MITOM2 #### [facility] ,Monocytes/100 WBC (Bld)5 %Normal2-11Aden[facility] Pike Medical CenterComment on above:Order Comment: Reason for Exam Elevated LFTs;Fatty liverPerformed By: #### DIFF CBC #### [place] [address] USANucleated RBC/100 WBC (Bld) [Ratio]0.1 %Normal0-0.5 Ad[facility] Pike Medical CenterComment on above:Order Comment: Reason for Exam Elevated LFTs;Fatty liverPerformed By: #### DIFF CBC #### [place] [address] USAResult Comment: PERFORMED BY: [place] [address] PATHOLOGIST TOE STRIPPER ILDEFONSO LAROSE M.D.Performed By: #### PT, FE and TIBC, CHIDI, HEPATIC, CBC, LIPID, LDLD #### [address] #### SMAB, A1AT, HBSAB, CHRISTEN RFX ADD ON, HBCAB, HBSAG, HCV RX PCR, CERULOP, MITOM2 #### [facility] ,Platelet EstimateNormalNormalNormalAdena Pike Medical CenterComment on above:Order Comment: Reason for Exam Elevated LFTs;Fatty liverPerformed By: #### DIFF CBC #### [place] [address] USAPlatelet mean volume (Bld) [Entitic vol]8.2 fLNormal 6.3-10.7FKindred Hospital DaytonComment on above:Order Comment: Reason for Exam Elevated LFTs;Fatty liverPerformed By: #### DIFF CBC #### [place] [address] USAPerformed By: #### PT, FE and TIBC, CHIDI, HEPATIC, CBC, LIPID, LDLD #### [place] [address] [place] #### SMAB, A1AT, HBSAB, CHRISTEN RFX ADD ON, HBCAB, HBSAG, HCV RX PCR, CERULOP, MITOM2 #### [facility] ,Platelet MorphologyNormalNoOhio State East HospitalComment on above:Order Comment: Reason for Exam Elevated LFTs;Fatty liverResult Comment: PERFORMED BY: [place] [address] PATHOLOGIST TOE STRIPPER ILDEFONSO LAROSE M.D.Performed By: #### DIFF CBC #### [place] [address] USAPlatelets (Bld) [#/Vol]293 10*3/vYMxjfjp272-517LifvkrumiAdena Pike Medical CenterComment on above:Order Comment: Reason for Exam Elevated LFTs;Fatty liverPerformed By: #### DIFF CBC #### [place] [address] USAPerformed By: #### PT, FE and TIBC, CHIDI, HEPATIC, CBC, LIPID, LDLD #### [place] [address] [place] #### SMAB, A1AT, HBSAB, CHRISTEN RFX ADD ON, HBCAB, HBSAG, HCV RX PCR, CERULOP, MITOM2 #### [facility] ,RBC (Bld) [#/Vol]4.14 10*6/uLNormal3.60-5.00[facility] Comment on above:Order Comment: Reason for Exam Elevated LFTs;Fatty liver Performed By: #### DIFF CBC #### [place] [address] USAPerformed By: #### PT, FE and TIBC, CHIDI, HEPATIC, CBC, LIPID, LDLD #### [place] [address] [place] #### SMAB, A1AT, HBSAB, CHRISTEN RFX ADD ON, HBCAB, HBSAG, HCV RX PCR, CERULOP, MITOM2 #### [facility] ,RBC morphology finding Nom (Bld)[facility] Comment on above:Order Comment: Reason for Exam Elevated LFTs;Fatty liver Performed By: #### DIFF CBC #### [facility] [address] [place] [address] USAReactive Lymphocytes6 %Normal0-12Aden[facility] Pike Medical CenterComment on above:Order Comment: Reason for Exam Elevated LFTs;Fatty liverPerformed By: #### DIFF CBC #### [facility] [address] [place] [address] USASegmented neutrophils/100 WBC (Bld)33 %Wyz82-91MckjsorofAdena Pike Medical CenterComment on above:Order Comment: Reason for Exam Elevated LFTs;Fatty liverPerformed By: #### DIFF CBC #### [facility] [address] [place] [address] USAWBC (Bld) [#/Vol]9.9 10*3/uLNormal4.5-11.0A[facility] Pike Medical CenterComment on above:Order Comment: Reason for Exam Elevated LFTs;Fatty liverPerformed By: #### DIFF CBC #### [facility] [address] [place] [address] USAPerformed By: #### PT, FE and TIBC, CHIDI, HEPATIC, CBC, LIPID, LDLD #### [facility] [address] [place] [address] [place] #### SMAB, A1AT, HBSAB, CHRISTEN RFX ADD ON, HBCAB, HBSAG, HCV RX PCR, CERULOP, MITOM2 #### [facility] ,Direct bilirubin measurementOrdered By: Horacio Vazquez on 09-08-2022 Bilirubin.direct [Mass/Vol]0.1 mg/dL0.0-0.4FKindred Hospital Dayton Eosinophils Auto (Bld) [#/Vol]Ordered By: Horacio Vazquez on 70-61-2362Aotoogxrika (Bld) [#/Vol]N/[facility] ClinicEosinophils/100 WBC Auto (Bld) Ordered By: Horacio Vazquez on 93-66-0106Urzemtpimgu/100 WBC (Bld)N/[facility] ClinicEosinophils/100 WBC Manual cnt (Bld)Ordered By: Horacio Vazquez on 27-27-8772Mpqjuslouuf/100 WBC (Bld)3 %1-3FKindred Hospital DaytonErythrocyte distribution width Auto (RBC) [Ratio]Ordered By: Horacio Vazquez on 97-31-5045Qewdnieefis distribution width (RBC) [Ratio]13.9 %11.9-15.3 [facility] Medical CenterFerritinon 34-16-1028Vdfandjh [Mass/Vol]158.7 ng/uMKtkimn75-331.8A[facility]ike Medical CenterComment on above:Order Comment: Reason for Exam Elevated LFTs;Fatty liverPerformed By: #### PT, FE and TIBC, CHIDI, HEPATIC, CBC, LIPID, LDLD #### [facility] [address] [place] [address] #### SMAB, A1AT, HBSAB, CHRISTEN RFX ADD ON, HBCAB, HBSAG, HCV RX PCR, CERULOP, MITOM2 #### [facility] ,Ferritin [Mass/volume] in Serum or PlasmaOrdered By: Horacio Vazquez on 68-65-6202Nyrbdfnf [Mass/Vol]158.7 ng/sP59-052.8A[facility] Pike Medical CenterGlobulin Calc (S) [Mass/Vol]Ordered By: Horacio Vazquez on 09-08-2022 Globulin (S) [Mass/Vol]3.4 g/dLAdena Pike Medical CenterHematocrit Auto (Bld) [Volume fraction]Ordered By: Horacio Vazquez on 41-25-9092Mrwjabsdtu (Bld) [Volume fraction]42.1 %34.0-46.4FKindred Hospital DaytonHemoglobin [Mass/volume] in BloodOrdered By: Horacio Vazquez on 92-01-5977Aqwzbusosk (Bld) [Mass/Vol]14.5 g/dL11.8-15.4FKindred Hospital DaytonHep C Ab wRfx to Qnt PCRon 61-73-8209Izumakvgm C Virus Antibody<0.6Myocrz7.0-0.9A[facility] Medical CenterComment on above:Order Comment: Reason for Exam Elevated LFTs;Fatty liverPerformed By: #### PT, FE and TIBC, CHIDI, HEPATIC, CBC, LIPID, LDLD #### [facility] [address] [place] [address] #### SMAB, A1AT, HBSAB, CHRISTEN RFX ADD ON, HBCAB, HBSAG, HCV RX PCR, CERULOP, MITOM2 #### [facility] ,Interpretation Hepatitis CNormal.A[facility]ike Medical CenterComment on above:Order Comment: Reason for Exam Elevated LFTs;Fatty liverResult Comment: Negative Not infected with HCV, unless recent infection is suspected or other evidence exists to indicate HCV infection.Performed By: #### PT, FE and TIBC, CHIDI, HEPATIC, CBC, LIPID, LDLD #### [facility] [address] [place] [address] #### SMAB, A1AT, HBSAB, CHRISTEN RFX ADD ON, HBCAB, HBSAG, HCV RX PCR, CERULOP, MITOM2 #### [facility] ,Hepatic Panelon [id number] [Mass/Vol]3.6 g/dLNormal3.2-5.5FKindred Hospital DaytonComment on above:Order Comment: Reason for Exam Elevated LFTs;Fatty liverPerformed By: #### PT, FE and TIBC, CHIDI, HEPATIC, CBC, LIPID, LDLD #### [facility] [address] [place] [address] #### SMAB, A1AT, HBSAB, CHRISTEN RFX ADD ON, HBCAB, HBSAG, HCV RX PCR, CERULOP, MITOM2 #### [facility] ,Albumin/Globulin [Mass ratio]1.1 {ratio}[facility] Comment on above:Order Comment: Reason for Exam Elevated LFTs;Fatty liver Performed By: #### PT, FE and TIBC, CHIDI, HEPATIC, CBC, LIPID, LDLD #### [facility] [address] [place] [address] [place] #### SMAB, A1AT, HBSAB, CHRISTEN RFX ADD ON, HBCAB, HBSAG, HCV RX PCR, CERULOP, MITOM2 #### [facility] ,ALP [Catalytic activity/Vol]130 U/KMdaw34-37BicqdpindAdena Pike Medical Center Comment on above:Order Comment: Reason for Exam Elevated LFTs;Fatty liver Performed By: #### PT, FE and TIBC, CHIDI, HEPATIC, CBC, LIPID, LDLD #### [facility] [address] [place] [address] #### SMAB, A1AT, HBSAB, CHRISTEN RFX ADD ON, HBCAB, HBSAG, HCV RX PCR, CERULOP, MITOM2 #### [facility] ,ALT [Catalytic activity/Vol]43 U/FVapaar93-02PtjceifcaAdena Pike Medical Center Comment on above:Order Comment: Reason for Exam Elevated LFTs;Fatty liver Performed By: #### PT, FE and TIBC, CHIDI, HEPATIC, CBC, LIPID, LDLD #### [facility] [address] [place] [address] #### SMAB, A1AT, HBSAB, CHRISTEN RFX ADD ON, HBCAB, HBSAG, HCV RX PCR, CERULOP, MITOM2 #### [facility] ,AST [Catalytic activity/Vol]30 U/XHtfpjm62-20KivectrqxAdena Pike Medical Center Comment on above:Order Comment: Reason for Exam Elevated LFTs;Fatty liver Performed By: #### PT, FE and TIBC, CHIDI, HEPATIC, CBC, LIPID, LDLD #### [facility] [address] [place] [address] [place] #### SMAB, A1AT, HBSAB, CHRISTEN RFX ADD ON, HBCAB, HBSAG, HCV RX PCR, CERULOP, MITOM2 #### [facility] ,Bilirubin [Mass/Vol]0.5 mg/dLNormal0.3-1.2FKindred Hospital Dayton Comment on above:Order Comment: Reason for Exam Elevated LFTs;Fatty liver Performed By: #### PT, FE and TIBC, CHIDI, HEPATIC, CBC, LIPID, LDLD #### [facility] [address] [place] [address] [place] #### SMAB, A1AT, HBSAB, CHRISTEN RFX ADD ON, HBCAB, HBSAG, HCV RX PCR, CERULOP, MITOM2 #### [facility] ,Bilirubin,Indirect0.4 mg/dLNoFulton County Health CenterComment on above:Order Comment: Reason for Exam Elevated LFTs;Fatty liverPerformed By: #### PT, FE and TIBC, CHIDI, HEPATIC, CBC, LIPID, LDLD #### [facility] [address] [place] [address] #### SMAB, A1AT, HBSAB, CHRISTEN RFX ADD ON, HBCAB, HBSAG, HCV RX PCR, CERULOP, MITOM2 #### [facility] ,Bilirubin.indirect [Mass/Vol]0.1 mg/dLNormal0.0-0.4FKindred Hospital DaytonComment on above:Order Comment: Reason for Exam Elevated LFTs;Fatty liver Performed By: #### PT, FE and TIBC, CHIDI, HEPATIC, CBC, LIPID, LDLD #### [address] #### SMAB, A1AT, HBSAB, CHRISTEN RFX ADD ON, HBCAB, HBSAG, HCV RX PCR, CERULOP, MITOM2 #### [facility] ,Globulin (S) [Mass/Vol]3.4 g/dLOhio State University Wexner Medical CenterComment on above:Order Comment: Reason for Exam Elevated LFTs;Fatty liverPerformed By: #### PT, FE and TIBC, CHIDI, HEPATIC, CBC, LIPID, LDLD #### [address] #### SMAB, A1AT, HBSAB, CHRISTEN RFX ADD ON, HBCAB, HBSAG, HCV RX PCR, CERULOP, MITOM2 #### [facility] ,Protein [Mass/Vol]7.0 g/dLNormal6.1-7.9A[facility]ike Medical CenterComment on above:Order Comment: Reason for Exam Elevated LFTs;Fatty liverPerformed By: #### PT, FE and TIBC, CHIDI, HEPATIC, CBC, LIPID, LDLD #### [facility] [address] [place] [address] [place] #### SMAB, A1AT, HBSAB, CHRISTEN RFX ADD ON, HBCAB, HBSAG, HCV RX PCR, CERULOP, MITOM2 #### [facility] ,Hepatitis B Core Antibodyon 15-21-4923Bwmiouxxz B Core AntibodyNegativeNormal NegativeAdena Pike Medical CenterComment on above:Order Comment: Reason for Exam Elevated LFTs;Fatty liverResult Comment: Performed at: [facility] [address] [id number] Psychiatric Nurse: Camilo Shaffer PhD, Phone: [phone] By: #### PT, FE and TIBC, CHIDI, HEPATIC, CBC, LIPID, LDLD #### [address] #### SMAB, A1AT, HBSAB, CHRISTEN RFX ADD ON, HBCAB, HBSAG, HCV RX PCR, CERULOP, MITOM2 #### [facility] ,Hepatitis B Surface Antibodyon 86-84-0090Udkvwqciz B Surface AntibodyReactive Normal.[facility] Medical CenterComment on above:Order Comment: Reason for Exam Elevated LFTs;Fatty liverResult Comment: Non Reactive: Inconsistent with immunity, less than 10 mIU/mL Reactive: Consistent with immunity, greater than 9.9 mIU/mLPerformed By: #### PT, FE and TIBC, CHIDI, HEPATIC, CBC, LIPID, LDLD #### [place] [address] [place] #### SMAB, A1AT, HBSAB, CHRISTEN RFX ADD ON, HBCAB, HBSAG, HCV RX PCR, CERULOP, MITOM2 #### [facility] ,Hepatitis B Surface Antigenon 95-18-6249QCxKk ScreenNegativeNormalNegative [facility] Medical CenterComment on above:Order Comment: Reason for Exam Elevated LFTs;Fatty liverResult Comment: PERFORMED BY: [place] [address] PATHOLOGIST TOE STRIPPER ILDEFONSO LAROSE M.D.Performed By: #### PT, FE and TIBC, CHIDI, HEPATIC, CBC, LIPID, LDLD #### [facility] [address] [place] [address] [place] #### SMAB, A1AT, HBSAB, CHRISTEN RFX ADD ON, HBCAB, HBSAG, HCV RX PCR, CERULOP, MITOM2 #### [facility] ,Hepatitis B virus surface Ag [Presence] in Serum or Plasma by Immunoassay Ordered By: Horacio Vazquez on 03-94-6816BDR surface Ag IA QlNegativeNegative [facility] Medical CenterIron [Mass/volume] in Serum or PlasmaOrdered By: Horacio Vazquez on 47-63-2898Yymb [Mass/Vol]99 ug/qX40-716MmfkvhlwgAdena Pike Medical CenterIron and TIBC Profileon 09-08-2022% Iron Rmpmatvjhe03.0 %Normal 20-50A[facility]ike Medical CenterComment on above:Order Comment: Reason for Exam Elevated LFTs;Fatty liverPerformed By: #### PT, FE and TIBC, CHIDI, HEPATIC, CBC, LIPID, LDLD #### [facility] [address] [place] [address] [place] #### SMAB, A1AT, HBSAB, CHRISTEN RFX ADD ON, HBCAB, HBSAG, HCV RX PCR, CERULOP, MITOM2 #### [facility] ,Iron [Mass/Vol]99 ug/aOYgqcew90-675YsgcjgqpeAdena Pike Medical CenterComment on above:Order Comment: Reason for Exam Elevated LFTs;Fatty liverPerformed By: #### PT, FE and TIBC, CHIDI, HEPATIC, CBC, LIPID, LDLD #### [facility] [address] [place] [address] [place] #### SMAB, A1AT, HBSAB, CHRISTEN RFX ADD ON, HBCAB, HBSAG, HCV RX PCR, CERULOP, MITOM2 #### [facility] ,Total Iron Binding Ygtsecaw022 ug/xMInbllm689-465CxyhlhsetAdena Pike Medical CenterComment on above:Order Comment: Reason for Exam Elevated LFTs;Fatty liver Performed By: #### PT, FE and TIBC, CHIDI, HEPATIC, CBC, LIPID, LDLD #### [facility] [address] [place] [address] #### SMAB, A1AT, HBSAB, CHRISTEN RFX ADD ON, HBCAB, HBSAG, HCV RX PCR, CERULOP, MITOM2 #### [facility] ,Transferrin [Mass/Vol]197 mg/tBNixlgk177-823ZlpqhdrewAdena Pike Medical Center Comment on above:Order Comment: Reason for Exam Elevated LFTs;Fatty liver Performed By: #### PT, FE and TIBC, CHIDI, HEPATIC, CBC, LIPID, LDLD #### [facility] [address] [place] [address] [place] #### SMAB, A1AT, HBSAB, CHRISTEN RFX ADD ON, HBCAB, HBSAG, HCV RX PCR, CERULOP, MITOM2 #### [facility] ,Iron binding capacity [Mass/volume] in Serum or PlasmaOrdered By: Horacio Vazquez on 62-10-2236Qfpm binding capacity [Mass/Vol]276 ug/aB327-536LsmsrahecAdena Pike Medical CenterIron saturation [Mass Fraction] in Serum or PlasmaOrdered By: Horacio Vazquez on 78-36-9437Msib saturation [Mass fraction]35.0 %20-50Adena Pike Medical CenterLDL Cholesterol Measuredon 89-28-1140XSU Cholesterol Fhualhbt953 mg/dLHigh0-100A[facility]ike Medical CenterComment on above: Order Comment: Reason for Exam Elevated LFTs;Fatty liverResult Comment: LDL ATP III CLASSIFICATION LDL less than 100 mg/dL Optimal LDL 100-129 mg/dL Near or above optimal LDL 130-159 mg/dL Borderline high LDL 160-189 mg/dL High LDL greater than 189 mg/dL Very high PERFORMED BY: [place] [address] PATHOLOGIST TOE STRIPPER ILDEFONSO LAROSE M.D.Performed By: #### PT, FE and TIBC, CHIDI, HEPATIC, CBC, LIPID, LDLD #### [address] [place] [address] [place] #### SMAB, A1AT, HBSAB, CHRISTEN RFX ADD ON, HBCAB, HBSAG, HCV RX PCR, CERULOP, MITOM2 #### [facility] ,Laboratory - CoagulationOrdered By: Horacio Vazquez on 25-79-0482NI Coag (PPP) [Time]10.9 s9.0-12.9A[facility] Medical CenterLaboratory - Hematology and Cell countsOrdered By: Horacio Vazquez on 77-14-7382Obntvdyxj RBC/100 WBC (Bld) [Ratio]0.1 %0-0.5FKindred Hospital DaytonLeukocytes [#/volume] in Blood by Automated countOrdered By: Horacio Vazquez on 27-96-9218XLZ (Bld) [#/Vol]9.9 10*3/uL4.5-11.0Adena Pike Medical CenterLipid Panelon 09-08-2022 Cholesterol [Mass/Vol]255 mg/dYCqcs272-630QclnebbgoAdena Pike Medical Center Comment on above:Order Comment: Reason for Exam Elevated LFTs;Fatty liverResult Comment: Chol less than 200 mg/dl low risk Chol 201-239 mg/dl borderline risk Chol 240 mg/dl and greater high riskPerformed By: #### PT, FE and TIBC, CHIDI, HEPATIC, CBC, LIPID, LDLD #### [facility] [address] [place] [address] [place] #### SMAB, A1AT, HBSAB, CHRISTEN RFX ADD ON, HBCAB, HBSAG, HCV RX PCR, CERULOP, MITOM2 #### [facility] ,Cholesterol in HDL [Mass/Vol]27 mg/vDNzp23-55IwvqxhyzpAdena Pike Medical Center Comment on above:Order Comment: Reason for Exam Elevated LFTs;Fatty liverResult Comment: HDL CHOL ATP-III CLASSIFICATION Cardiovascular Risk HDL > or equal to 60 mg/dL LOW HDL < 40 mg/dL HIGHPerformed By: #### PT, FE and TIBC, CHIDI, HEPATIC, CBC, LIPID, LDLD #### [facility] [address] [place] [address] [place] #### SMAB, A1AT, HBSAB, CHRISTEN RFX ADD ON, HBCAB, HBSAG, HCV RX PCR, CERULOP, MITOM2 #### [facility] ,Cholesterol.total/Cholesterol in HDL [Mass ratio]9.4 {ratio}Normal<5.0A[facility] Pike Medical CenterComment on above:Order Comment: Reason for Exam Elevated LFTs;Fatty liverPerformed By: #### PT, FE and TIBC, CHIDI, HEPATIC, CBC, LIPID, LDLD #### [facility] [address] #### SMAB, A1AT, HBSAB, CHRISTEN RFX ADD ON, HBCAB, HBSAG, HCV RX PCR, CERULOP, MITOM2 #### [facility] ,LDL Cholesterol,CalculatedNot performedNormal0-100A[facility] Medical CenterComment on above:Order Comment: Reason for Exam Elevated LFTs;Fatty liver Performed By: #### PT, FE and TIBC, CHIDI, HEPATIC, CBC, LIPID, LDLD #### [address] #### SMAB, A1AT, HBSAB, CHRISTEN RFX ADD ON, HBCAB, HBSAG, HCV RX PCR, CERULOP, MITOM2 #### [facility] ,Triglyceride w/Wfmvvg803 mg/fJYucv15-474FfemdtazvAdena Pike Medical Center Comment on above:Order Comment: Reason for Exam Elevated LFTs;Fatty liverResult Comment: TRIG ATP III CLASSIFICATION TRIG less than 150 mg/dL Normal TRIG 150-199 mg/dL Borderline high TRIG 200-500 mg/dL High TRIG greater than 500 mg/dL Very high Standard traceable to the Center for Disease Conrtrol and Prevention (CDC) test method. If the triglyceride result is greater than 400, LDLC and related calculations cannot be calculated and resulted.Performed By: #### PT, FE and TIBC, CHIDI, HEPATIC, CBC, LIPID, LDLD #### [facility] [address] [place] [address] [place] #### SMAB, A1AT, HBSAB, CHRISTEN RFX ADD ON, HBCAB, HBSAG, HCV RX PCR, CERULOP, MITOM2 #### [facility] ,VLDL CHOLESTEROLNot performedNormalAdena Pike Medical CenterComment on above:Order Comment: Reason for Exam Elevated LFTs;Fatty liverPerformed By: #### PT, FE and TIBC, CHIDI, HEPATIC, CBC, LIPID, LDLD #### [facility] [address] #### SMAB, A1AT, HBSAB, CHRISTEN RFX ADD ON, HBCAB, HBSAG, HCV RX PCR, CERULOP, MITOM2 #### [facility] ,Lymphocytes Auto (Bld) [#/Vol]Ordered By: Horacio Vazquez on 09-08-2022 Lymphocytes (Bld) [#/Vol]N/AFKindred Hospital DaytonLymphocytes/100 WBC Auto (Bld)Ordered By: Horacio Vazquez on 54-75-0503Fuxysvckwvh/100 WBC (Bld)N/A [facility] Medical CenterLymphocytes/100 WBC Manual cnt (Bld)Ordered By: Horacio Vazquez on 05-22-5675Gtpnkaywifp/100 WBC (Bld)53 %18-42[facility] Auto (RBC) [Entitic mass]Ordered By: Horacio Vazquez on 28-51-7100KZS (RBC) [Entitic mass]35.0 pg24.7-34.3FMercy Health St. Rita's Medical CenterHC Auto (RBC) [Mass/Vol]Ordered By: Horacio Vazuqez on 71-37-8257AJHD (RBC) [Mass/Vol]34.4 g/dL32.0-35.0A[facility] Medical CenterMCV Auto (RBC) [Entitic vol]Ordered By: Horacoi Vazquez on 76-22-8632URO (RBC) [Entitic vol]101.7 qC85-329BorgywdcfAdena Pike Medical CenterMitochondrial (M2) Antibodyon 89-91-9366Qdwkwowvcmgqt (M2) Antibody<20.9Snosfz2.0-20.0A[facility] Medical CenterComment on above:Order Comment: Reason for Exam Elevated LFTs;Fatty liverResult Comment: Negative 0.0 - 20.0 Equivocal 20.1 - 24.9 Positive >24.9 Mitochondrial (M2) Antibodies are found in 90-96% of patients with primary biliary cirrhosis. Performed at: - [address] [id number] Psychiatric Nurse: Camilo Shaffer PhD, Phone: [phone] By: #### PT, FE and TIBC, CHIDI, HEPATIC, CBC, LIPID, LDLD #### [facility] [address] [place] [address] #### SMAB, A1AT, HBSAB, CHRISTEN RFX ADD ON, HBCAB, HBSAG, HCV RX PCR, CERULOP, MITOM2 #### [facility] ,Monocytes Auto (Bld) [#/Vol]Ordered By: Horacio Vazquez on 49-90-9766Hdcmrplre (Bld) [#/Vol]N/Cleveland ClinicMonocytes/100 WBC Auto (Bld) Ordered By: Horacio Vazquez on 90-50-4145Omrnnaajo/100 WBC (Bld)N/[facility] ClinicMonocytes/100 WBC Manual cnt (Bld)Ordered By: Horacio Vazquez on 79-81-6044Mypafluwf/100 WBC (Bld)5 %2-11A[facility] Medical CenterNeutrophils Auto (Bld) [#/Vol]Ordered By: Horacio Vazquez on 09-08-2022 Neutrophils (Bld) [#/Vol]N/Cleveland ClinicNeutrophils/100 WBC Auto (Bld)Ordered By: Horacio Vazquez on 90-07-2883Qxdahkwityl/100 WBC (Bld)N/A [facility] CenterNo Panel InformationOrdered By: Horacio Vazquez on 74-74-8025Rhni-Nuclear Antibody InterpretSee comment.[facility] Medical CenterComment on above:Autoantibody Disease Association Conditi on Frequency ---------Antinuclear Antibody, SLE, mixed connectiveDirect (CHRISTEN-D) tissue diseases ---------dsDNA SLE 40 - 60% ---------Chromatin Drug induced SLE 90% SLE 48 - 97% ---------SSA (Ro) SLE 25 - 35% Sjogren's Syndrome 40 - 70% Lupus 100% ---------SSB (La) SLE 10% Sjogren's Syndrome 30% ---------Sm (anti-Meeks) SLE 15 - 30% ---------ESCALATOR MECHANIC Mixed Connective TissueDisease 95%(U1 nRNP, SLE 30 - 50%anti- ribonucleoprotein) Polymyositis and/or Dermatomyositis 20% ---------Scl-70 (antiDNA Scleroderma (diffuse) 20 - 35%topoisomerase) Crest 13% ---------Shavonne-1 Polymyositis and/or Dermatomyositis 20 - 40% ---------Centromere B Scleroderma - Crest variant 80%Performed at: [email or web address] [address] Director: Camilo Shaffer PhD, Phone: [phone] B Core Total AntibodyNegativeNegativeAdena Pike Medical CenterComment on above: Performed at: [email or web address] [address] [id number] Director: Camilo Shaffer PhD, Phone: [phone] C InterpretationSee comment.[facility] Medical CenterComment on above:NegativeNot infected with HCV, unless recent infection issuspected or other evidence exists to indic ate HCVinfection.Hepatitis C RNA QuantitativeN/Cleveland ClinicRNP Antibody1.3 AI0.0-0.9[facility] Medical CenterPlatelet adequacy [Presence] in Blood by Light microscopyOrdered By: Horacio Vazquez on 97-39-6275Sbxvnpmcr LM Ql (Bld)NormalNormalAdena Pike Medical Center Platelet mean volume Auto (Bld) [Entitic vol]Ordered By: Horacio Vazquez on 78-55-7357Aaijptdb mean volume (Bld) [Entitic vol]8.2 fL6.3-10.7FKindred Hospital DaytonPlatelet morphology finding [Identifier] in BloodOrdered By: Horacio Vazquez on 54-53-9448Rqxvcvpv morphology finding Nom (Bld)NormalNormal [facility] Medical CenterPlatelet poor plasma international normalized ratio (INR) by coagulation assay (relatOrdered By: Horacio Vazquez on 09-08-2022 INR Coag (PPP) [Relative time]1.0 {INR}[facility] Medical CenterComment on above:INR Therapeutic Range A) Pre- and Peroperative OAT started two weeks before surgery. NOT HIP SURGERY: 1.5 - 2.5 HIP SURGERY: 2 - 3B) Primary and secondary prevention of venous THROMBOSIS: 2 - 3C) Active venous thrombosis, pulmonary embolismand prevention of recurrent venous thrombosis: 2 - 3D) Preve ntion of arterial thromboembolismincluding patients with mechanical heart valves: 3 - 4.5Platelets Auto (Bld) [#/Vol]Ordered By: Horacio Vazquez on 25-40-9586Rwivvzihe (Bld) [#/Vol]293 10*3/xK044-619VxhamtqjiAdena Pike Medical CenterProtein [Mass/volume] in Serum or PlasmaOrdered By: Horacio Vazquez on 12-99-9364Dtnmrxw [Mass/Vol]7.0 g/dL6.1-7.9[facility] Prothrombin Time INRon 31-26-7585UZW Coag (PPP) [Relative time]1.0 {INR}Normal [facility] Medical CenterComment on above:Order Comment: Reason for Exam Elevated LFTs;Fatty liverResult Comment: INR Therapeutic Range A) Pre- and Peroperative OAT started two weeks before surgery. NOT HIP SURGERY: 1.5 - 2.5 HIP SURGERY: 2 - 3 B) Primary and secondary prevention of venous THROMBOSIS: 2 - 3 C) Active venous thrombosis, pulmonary embolism and prevention of recurrent venous thrombosis: 2 - 3 D) Prevention of arterial thromboembolism including patients with mechanical heart valves: 3 - 4.5 PERFORMED BY: [facility] [address] [facility] [place] [address] PATHOLOGIST TOE STRIPPER ILDEFONSO LAROSE M.D.Performed By: #### PT, FE and TIBC, CHIDI, HEPATIC, CBC, LIPID, LDLD #### [facility] [address] #### SMAB, A1AT, HBSAB, CHRISTEN RFX ADD ON, HBCAB, HBSAG, HCV RX PCR, CERULOP, MITOM2 #### [facility] ,PT Coag (PPP) [Time]10.9 sNormal9.0-12.9[facility] Comment on above:Order Comment: Reason for Exam Elevated LFTs;Fatty liver Performed By: #### PT, FE and TIBC, CHIDI, HEPATIC, CBC, LIPID, LDLD #### [facility] [address] #### SMAB, A1AT, HBSAB, CHRISTEN RFX ADD ON, HBCAB, HBSAG, HCV RX PCR, CERULOP, MITOM2 #### [facility] ,RBC Auto (Bld) [#/Vol]Ordered By: Horacio Vazquez on 14-64-2724DYD (Bld) [#/Vol] 4.14 10*6/uL3.60-5.00A[facility] Medical CenterRBC morphologyOrdered By: Horacio Vazquez on 88-27-5326XZK morphology finding Nom (Bld)NormalPremier Healthcl-70 antibody assayOrdered By: Horacio Vazquez on 84-88-6018IUU-70 extractable nuclear Ab IA Qn (S)<0.2 AI0.0-0.9Premier Healthegmented neutrophils/100 WBC Manual cnt (Bld)Ordered By: Horacio Vazquez on 24-77-6090Jflixdxck neutrophils/100 WBC (Bld)33 %50-70 Premier Healtherum DNA double strand antibody assay (units/volume)Ordered By: Horacio Vazquez on 33-69-3088ZAW double strand Ab Qn (S) 1 [IU]/mL0-9A[facility] Medical CenterComment on above:Negative <5 Equivocal 5 - 9 Positive >9Serum Shavonne-1 extractable nuclear antibody assay (units/volume)Ordered By: Horacio Vazquez on 95-94-2813Sj-1 extractable nuclear Ab Qn (S)<0.2 AI0.0-0.9Premier Healtherum Sjogrens syndrome-A extractable nuclear antibody assay (units/volume)Ordered By: Horacio Vazquez on 94-95-9568Ihzjsapf syndrome-A extractable nuclear Ab Qn (S)<0.2 AI0.0-0.9 Premier Healtherum Sjogrens syndrome-B extractable nuclear antibody assay (units/volume)Ordered By: Horacio Vazquez on 94-17-4928Iiyzdjog syndrome-B extractable nuclear Ab Qn (S)<0.2 AI0.0-0.9Premier Healtherum Meeks extractable nuclear antigen (FARZAD) antibody assay (units/volume)Ordered By: Horacio Vazquez on 34-46-4334Vxhet extractable nuclear Ab Qn (S)<0.2 AI0.0-0.9Premier Healtherum dfvhd-4-ulieevcphqa measurementOrdered By: Horacio Vazquez on 22-28-0419Jxchy 1 antitrypsin [Mass/Vol]123 mg/gT982-059RtyioqljaAdena Pike Medical CenterComment on above:Performed at: [facility] [place] [id number] Director: Camilo Shaffer PhD, Phone: [phone] centromere protein B antibody assay (units/volume)Ordered By: Horacio Vazquez on 09-08-2022 Centromere protein B Ab Qn (S)<0.2 AI0.0-0.9[facility] Serum hepatitis B virus surface antibody detectionOrdered By: Horacio Vazquez on 55-41-1381RMV surface Ab Ql (S)Reactive.[facility] Medical CenterComment on above:Non Reactive: Inconsistent with immunity, less than 10 mIU/mL Reactive: Consistent with immunity, greater than 9.9 mIU/mLSerum mitochondria M2 IgG antibody assay (units/volume)Ordered By: Horacio Vazquez on 09-08-2022 Mitochondria M2 IgG Qn (S)<20.0 Units0.0-20.0[facility] Comment on above:Negative 0.0 - 20.0 Equivocal 20.1 - 24.9 Positive >24.9Mitochondrial (M2) Antibodies are found in 90-96% ofpatients with primary biliary cirrhosis.Performed at: - [address] [id number] Director: Camilo Shaffer PhD, Phone: [phone] or plasma alanine aminotransferase measurement without P-5'-P (enzymatic activiOrdered By: Horacio Vazquez on 62-80-8161FLH No additional P-5'-P [Catalytic activity/Vol]43 U/V88-28LplgvctmcPremier Healtherum or plasma albumin/globulin mass ratioOrdered By: Horacio Vazquez on 61-95-3885Ecafmdf/Globulin [Mass ratio]1.1 {ratio}Premier Healtherum or plasma alkaline phosphatase measurement (enzymatic activity/volume)Ordered By: Horacio Vazquez on 09-08-2022 ALP [Catalytic activity/Vol]130 U/A43-77RafsvctrzPremier Healtherum or plasma aspartate aminotransferase measurement (enzymatic activity/volume) Ordered By: Horacio Vazquez on 55-63-8175WNL [Catalytic activity/Vol]30 U/L10-42 [facility] Healtherum or plasma ceruloplasmin measurement (mass/volume)Ordered By: Horacio Vazquez on 14-22-6145Avktbkqajdlee [Mass/Vol]22.3 mg/dL19.0-39.0Premier Healtherum or plasma cholesterol in LDL measurement (mass/volume)Ordered By: Horacio Vazquez on 41-29-2002Abjvypyyqjt in LDL [Mass/Vol]116 mg/dL0-100A[facility] Medical CenterComment on above:LDL ATP III CLASSIFICATIONLDL less than 100 mg/dL OptimalLDL 100-129 mg/dL Near or above revwcfnRPT921-777 mg/dL Borderline highLDL 160-189 mg/dL HighLDL greater than 189 mg/dL Very highSerum or plasma chromatin antibody assay (units/volume)Ordered By: Horacio Vazquez on 43-79-6977Bukqaxyvd Ab Qn<0.2 AI 0.0-0.9Premier Healtherum or plasma free cefuroxime measurement (mass/volume)Ordered By: Horacio Vazquez on 69-07-7503Cnunuelwdm free [Mass/Vol]PositiveNegativePremier Healtherum or plasma hepatitis C virus antibody signal/cutoff ratio by immunoassay (relatiOrdered By: Horacio Vazquez on 18-16-6464NRU Ab Signal/Cutoff IA [Rel units/Vol]<0.1 s/co ratio0.0-0.9Premier Healtherum or plasma high density lipoprotein (HDL) cholesterol measurementOrdered By: Horacio Vazquez on 09-08-2022 Cholesterol in HDL [Mass/Vol]27 mg/lE51-59TwxjbntrzAdena Pike Medical Center Comment on above:HDL CHOL ATP-III CLASSIFICATION Cardiovascular RiskHDL > or equal to 60 mg/dL LOWHDL < 40 mg/dL HIGHSerum or plasma non-glucuronidated bilirubin measurement (mass/volume)Ordered By: Horacio Vazquez on 09-08-2022 Bilirubin.indirect [Mass/Vol]0.4 mg/dLPremier Healtherum or plasma total bilirubin measurement (mass/volume)Ordered By: Horacio Vazquez on 85-82-6628Bsadtyaua [Mass/Vol]0.5 mg/dL0.3-1.2FKindred Hospital Dayton Serum or plasma total cholesterol/high density lipoprotein (HDL) cholesterol mass ratOrdered By: Horacio Vazquez on 62-34-6776Eurzacvnrgj.total/Cholesterol in HDL [Mass ratio]9.4 {ratio}<5.0Premier Healthmooth Muscle Antibodyon 52-15-6545Ehdgqi Muscle Yosyjyos0Fwdalt4-19QwgunarasAdena Pike Medical CenterComment on above:Order Comment: Reason for Exam Elevated LFTs;Fatty liver Result Comment: Negative 0 - 19 Weak positive 20 - 30 Moderate to strong positive >30 Actin Antibodies are found in 52-85% of patients with autoimmune hepatitis or chronic active hepatitis and in 22% of patients with primary biliary cirrhosis.Performed By: #### PT, FE and TIBC, CHIDI, HEPATIC, CBC, LIPID, LDLD #### [address] #### SMAB, A1AT, HBSAB, CHRISTEN RFX ADD ON, HBCAB, HBSAG, HCV RX PCR, CERULOP, MITOM2 #### [facility] ,Triglyceride [Mass/volume] in Serum or PlasmaOrdered By: Horacio Vazquez on 70-46-6328Rfctgtubhgkp [Mass/Vol]656 mg/mI66-565TllupgkqvAdena Pike Medical CenterComment on above:If the triglyceride result is greater than 400, LDLC and related calculations cannot be calculated and resulted.TRIG ATP III CLASSIFICATIONTRIG less than 150 mg/dL NormalTRIG 150-199 mg/dL Borderline highTRIG 200-500 mg/dL High TRIG greater than 500 mg/dL Very highStandard traceable to the Center for Disease Conrtrol and Prevention (CDC) test method. Variant lymphocytes/100 WBC Manual cnt (Bld)Ordered By: Horacio Vazquez on [id number] lymphocytes/100 WBC (Bld)6 %0-12A[facility]ike Medical CenterXR FOOT GABRIELA MIN 3 VIEWSon [id number] FOOT GABRIELA MIN 3 VIEWSEXAMINATION: XR FOOT GABRIELA MIN 3 VIEWS HISTORY: Pain in both feet COMPARISON: No relevant comparison available. FINDINGS: RIGHT FINDINGS: BONES: Mild plantar enthesopathic spurring. No significant arthropathy or acute abnormality. SOFT TISSUES: Negative. No visible soft tissue swelling. OTHER: Negative. LEFT FINDINGS: BONES: Mild plantar enthesopathic spurring. No significant arthropathy or acute abnormality. SOFT TISSUES: Negative. No visible soft tissue swelling. OTHER: Negative. IMPRESSION: RIGHT CONCLUSION: No acute abnormality LEFT CONCLUSION: No acute abnormality Electronically authenticated by: TOM HAUSER Date: 2022-06-04 19:12[facility] SINGLE QUAD RT UPPERon [id number] SINGLE QUAD RT UPPER EXAMINATION: US SINGLE QUAD RT UPPER HISTORY: Liver function tests abnormal COMPARISON: Ultrasound right upper quadrant 02/21/2014 TECHNIQUE: Transabdominal evaluation of the right upper quadrant. FINDINGS: LIVER: Increased echogenicity suggestive of fatty infiltration with fat sparing adjacent the gallbladder. PORTAL VEIN: Duplex Doppler demonstrates normal hepatopetal flow pattern with flow velocity averaging 26 cm/s. GALLBLADDER: No visible gallstones, wall thickening, or pericholecystic free fluid. Negative sonographic Resendez's sign. BILIARY: No abnormal dilation or stones. Common bile duct diameter is within normal limits. PANCREASE: Slightly heterogeneous. No visible mass, abnormal atrophy, or duct dilation. KIDNEY: Contains a 2.6 cm benign-appearing cyst. No hydronephrosis, stones, or cortical thinning. Size: 12.5 x 5.9 x 5.7 cm IMPRESSION: 1. Fatty infiltration of liver. Electronically authenticated by: SHIMA PALOMINO Date: 2022-05-26 17:23[facility] W MANUAL DIFFon [id number] LYMPH #NormalThe Jenkins HospitalComment on above:Performed By: #### REJI #### [facility] [address] [place] [address] Dr. Hanh BallesterosYPICAL LYMPH %NormalMercy Health St. Rita'S Medical CenterComment on above: Performed By: #### REJI #### [facility] [address] [place] [address] Dr. Hanh Clemente #Normal0.0-0.3The [facility]igh HospitalComment on above: Performed By: #### REJI #### [facility] [address] [place] [address] Dr. Hanh Clemente %Normal0-5The [facility]igh HospitalComment on above:Performed By: #### REJI #### [facility] [address] [place] [address] Dr. Hanh Matta #0.00 103/ulNormal0.00-0.10The [facility]igh HospitalComment on above:Performed By: #### REJI #### [facility] [address] [place] [address] Dr. Hanh Matta %0.0 %Critically low0.2-2.0The [facility]igh HospitalComment on above:Performed By: #### REJI #### [facility] [address] [place] [address] Dr. Hanh Jackson #NormalThe [facility]igh HospitalComment on above:Performed By: #### CBCCANDELARIO #### [facility] [address] [place] [address] Dr. Hanh Jackson %NormalMercy Health St. Rita'S Medical CenterComment on above:Performed By: #### CBCCANDELARIO #### [facility] [address] [address] [address] Hanh GambleRRECTED WBCNormal4.0-11.0The [facility]igh HospitalComment on above: Performed By: #### REJI #### [facility] [address] [place] [address] Dr. Hanh Shukla #0.34 103/ulNormal0.00-0.70The [facility]igh HospitalComment on above:Performed By: #### REJI #### [facility] [address] [place] [address] Dr. Hanh Shukla%3.0 %Normal0.9-7.0The [facility]igh HospitalComment on above: Performed By: #### REJI #### [facility] [address] [place] [address] Dr. Hanh ShaneHCT39.3 %Icmbeq54.0-48.0The [facility]igh HospitalComment on above: Performed By: #### REJI #### [facility] [address] [place] [address] Dr. Hanh ShaneHGB13.6 g/lmDlwxei94.0-16.0The [facility] HospitalComment on above: Performed By: #### REJI #### [facility] [address] [place] [address] Dr. Hanh Arrington #6.44 103/ulCritically high1.20-3.80The [facility] Comment on above:Performed By: #### REJI #### [facility] [address] [place] [address] Dr. Hanh Arrington%57.0 %Pnzonm99.5-60.0The [facility]igh HospitalComment on above:Performed By: #### REJI #### [facility] [address] [place] [address] Dr. Hanh JoROCYTOSISSBridgton Hospitale [facility] HospitalComment on above: Performed By: #### REJI #### [facility] [address] [place] [address] Dr. Hanh ShaneMCH35.3 pgCritically high26.7-34.0The [facility] HospitalComment on above:Performed By: #### REJI #### [facility] [address] [address] [address] Hanh VanegasHC34.6 g/fiDiltfm67.9-35.2The [facility]igh HospitalComment on above:Performed By: #### REJI #### [facility] [address] [address] [address] Hanh VanegasV102.1 fLCritically high81.0-99.0The [facility] HospitalComment on above:Performed By: #### REJI #### [facility] [address] [place] [address] Dr. Hanh Smith #NormalThe [facility] HospitalComselect specialty hospital on above: Performed By: #### REJI #### [facility] [address] [place] [address] Dr. Hanh Smith %NormalThe [facility] HospitalComment on above: Performed By: #### REJI #### [facility] [address] [place] [address] Dr. Hanh Sena#0.45 103/ulNormal0.30-0.80The [facility] on above:Performed By: #### REJI #### [facility] [address] [place] [address] Dr. Hanh Sena%4.0 %Normal1.7-12.0The [facility] HospitalComment on above: Performed By: #### CBCCANDELARIO #### [facility] [address] [place] [address] Dr. Hanh DeyV9.4 fLCritically low9.5-13.5The [facility] HospitalComselect specialty hospital on above:Performed By: #### CBCCANDELARIO #### [facility] [address] [place] [address] Dr. Hanh Matute #NormalThe [facility] HospitalComselect specialty hospital on above:Performed By: #### REJI #### [facility] [address] [place] [address] Dr. Hanh Matute %NormalTri[facility] on above:Performed By: #### REJI #### [facility] [address] [place] [address] Dr. Hanh TellezBCNormalThe [facility] on above:Performed By: #### REJI #### [facility] [address] [place] [address] Dr. Hanh ShanePLT310 103/eoXohwtj225-929Uhh [facility] on above: Performed By: #### REJI #### [facility] [address] [place] [address] Dr. Hanh ShaneRBC3.85 106/ulCritically low4.20-5.40[facility] on above:Performed By: #### REJI #### [facility] [address] [place] [address] Dr. Hanh ShaneRDW13.6 %Abaozb09.0-15.0The [facility] on above: Performed By: #### REJI #### [facility] [address] [place] [address] Dr. Hanh Mcmahon #4.07 103/ulNormal1.40-6.50The [facility] on above:Performed By: #### REJI #### [facility] [address] [place] [address] Dr. Hanh Mcmahon %36.0 %Critically low43.0-75.0The [facility] on above:Performed By: #### REJI #### [facility] [address] [place] [address] Dr. Hanh WayneBC11.3 103/ulCritically high4.0-11.0The [facility] on above:Performed By: #### REJI #### [facility] [address] [place] [address] Dr. Hanh ShaneGLYCOHEMOGLOBIN A1Con [id number] RECOMMENDATIONSEE BELOWNormal The [facility] HospitalComselect specialty hospital on above:Result Comment: ADA RECOMMENDED LIMIT 4.0 - 6.0 ADA THERAPEUTIC TARGET < 7.0 ACTION SUGGESTED > 7.0Performed By: #### A1C #### [facility] [address] [address] [address] Hanh ShaneGlucose [Mass/Vol]114 mg/dLNormalThe [facility]igh HospitalComment on above:Performed By: #### A1C #### [facility] [address] [place] [address] Dr. Hanh ShaneHbA1c (Bld) [Mass fraction]5.6 %Normal4.5-6.2The [facility] HospitalComment on above:Performed By: #### A1C #### [facility] [address] [place] [address] Dr. Hanh ShanePROVernon 14(COMP METB)on 55-37-2009Ayayasc [Mass/Vol]3.1 g/dL Critically low3.4-5.0The [facility] HospitalComment on above:Performed By: #### CMP #### [facility] [address] [place] [address] Dr. Hanh ShaneAlbumin/Globulin [Mass ratio]0.8 {ratio}NormalThe [facility] HospitalComment on above:Performed By: #### CMP #### [facility] [address] [place] [address] Dr. Hanh Tee [Catalytic activity/Vol]156 U/LCritically refr84-742Jvx [facility] HospitalComment on above:Performed By: #### CMP #### [facility] [address] [place] [address] Dr. Hanh Forman [Catalytic activity/Vol]38 U/CUiamcw00-78Ull [facility] HospitalComment on above:Performed By: #### CMP #### [facility] [address] [place] [address] Dr. Hanh Cuevas gap [Moles/Vol]11.7 mmol/LNormalThe [facility] on above:Performed By: #### CMP #### [facility] [address] [place] [address] Dr. Hanh Foster [Catalytic activity/Vol]16 U/QOhtqjt68-02Mxh [facility] HospitalComment on above:Performed By: #### CMP #### [facility] [address] [address] [address] Hanh ShaneBilirubin [Mass/Vol]0.2 mg/dLNormal0.2-1.0[facility] Comment on above:Performed By: #### CMP #### [facility] [address] [address] [address] Hanh ShaneCalcium [Mass/Vol]9.2 mg/dLNormal8.5-10.1[facility] Comment on above:Performed By: #### CMP #### [facility] [address] [address] [address] Hanh ShaneChloride [Moles/Vol]106 mmol/MNupzvw10-699DefMercy Health St. [facility]'S [facility] Comment on above:Performed By: #### CMP #### [facility] [address] [address] [address] Hanh ShaneCO2 [Moles/Vol]26.6 mmol/ZXxtgxf96.0-32.0The [facility] Comment on above:Performed By: #### CMP #### [facility] [address] [address] [address] Hanh ShaneCreatinine [Mass/Vol]0.74 mg/dLNormal0.55-1.02The [facility] HospitalComment on above:Performed By: #### CMP #### [facility] [address] [address] [address] Hanh MaldonadoGFR-AF ICELANDIC>=60Normal>=60The [facility] HospitalComment on above:Performed By: #### CMP #### [facility] [address] [address] [address] aHnh MaldonadoGFR-NON AF ICELANDIC>=60Normal>=60The [facility] HospitalComment on above:Performed By: #### CMP #### [facility] [address] [place] [address] Dr. Hanh ShaneGlobulin (S) [Mass/Vol]3.9 g/dLNormalThe [facility] HospitalComment on above:Performed By: #### CMP #### [facility] [address] [address] [address] Hanh ShaneGlucose [Mass/Vol]112 mg/dLCritically dvzm98-394Ema [facility] HospitalComment on above:Performed By: #### CMP #### [facility] [address] [address] [address] Hanh ShanePotassium [Moles/Vol]4.3 mmol/LNormal3.5-5.1The [facility] Comment on above:Performed By: #### CMP #### [facility] [address] [address] [address] Hanh ShaneProtein [Mass/Vol]7.0 g/dLNormal6.4-8.2[facility] Comment on above:Performed By: #### CMP #### [facility] [address] [address] [address] Hanh ShaneSodium [Moles/Vol]140 mmol/VCkxjdl687-665Isd [facility] Comment on above:Performed By: #### CMP #### [facility] [address] [address] [address] Hanh ShaneUrea nitrogen [Mass/Vol]11.0 mg/dLNormal7.0-18.0The [facility] HospitalComment on above:Performed By: #### CMP #### [facility] [address] [address] [address] Hanh ShaneUrea nitrogen/Creatinine [Mass ratio]14.9 mg/mgNormalThe [facility] HospitalComment on above:Performed By: #### CMP #### [facility] [address] [address] [address] Hanh ShaneXR CSPINE 2_3 VIEWSon [id number] CSPINE 2_3 VIEWSEXAMINATION: XR CSPINE 2_3 VIEWS HISTORY: Traumatic injury COMPARISON: No relevant comparison available. FINDINGS: BONES: Reversal of normal cervical lordosis. No acute fracture or spondylolisthesis. Mild degenerative changes C5-C7 DISC SPACES: Disc space narrowing C5-C6 and C6-C7 PARASPINOUS: Negative. No paraspinous abnormality is seen. OTHER: Negative. IMPRESSION: Reversal of normal cervical lordosis Degenerative changes C5-C7 Electronically authenticated by: TOM HAUSER Date: 2021-11-29 15:52[facility] HospitalCNPNon [id number] (HEMASA) MARJORIEELOANN MARIE ([id number]) 1975 F Date Time Provider Department 06/20/20 ELADIO WAGNER During your visit today, we recorded the following information about you: Allergies As of Date: 06/20/2020 Noted Allergy Reaction AZITHROMYCIN 11/23/2018 16 - Unknown LATEX 06/22/2017 2 - Rash Date Reviewed: 05/24/2019 Reviewed by: Afshan Meeks - Fully Assessed Reason for Visit: Lab Orders [1688] Primary Visit Diagnosis:Macrocytosis without anemia [D75.89] Order(s):CBC + DIFF (FOR REMOTE [facility] USE) [SQRCBCDF] Order #: [id number] FUTURE COMP METABOLIC PANEL [SQCMP] Order #: [id number] FUTURE Prescriptions as of 06/20/2020 Sig: FOLIC ACID 1 MG TABLET Take 1 tablet by mouth once d* DIETARY SUPPLEMENT COMB NO.20* Take 400 mcg by mouth once da* ASPIRIN 81 MG TABLET,DELAYED * Take 81 mg by mouth once lata* LISINOPRIL 10 MG TABLET Take 10 mg by mouth once lata* OMEPRAZOLE 40 MG CAPSULE,JANET* Take 40 mg by mouth once lata* CETIRIZINE 10 MG TABLET Take 10 mg by mouth once lata* TOPIRAMATE 100 MG TABLET Take 100 mg by mouth twice da* AMITRIPTYLINE 25 MG TABLET Take 25 mg by mouth daily at * MAGNESIUM 400 MG ( MAGNESIU* Take 400 mg by mouth once go* RIBOFLAVIN ORAL Take 100 mg by mouth twice da* NARATRIPTAN 2.5 MG TABLET Take 2.5 mg by mouth as neede* ONDANSETRON 4 MG DISINTEGRATI* Take 4 mg by mouth every 8 ho* Problem List As Of Date 06/20/2020 Noted Resolved Lymphocytosis [D72.820] 11/24/2018 Macrocytosis without anemia [D75.89] 11/24/2018 B12 deficiency [E53.8] 12/15/2018 Folic acid deficiency [E53.8] 12/15/2018 Encounter Status:Closed by TANGELA WHITE SOFT TOP INSTALLER on 06/21/20NoMercer County Community HospitalMRI BRAIN WITHOUT CONTRASTon [id number] BRAIN WITHOUT CONTRASTMRI BRAIN WITHOUT CONTRAST, 2019. HISTORY: Headaches and dizziness for several years. COMPARISON: MRI brain with and without contrast, 07/29/2016. TECHNIQUE: Sagittal T1, axial T2, FLAIR, diffusion, T2 gradient images were obtained. FINDINGS: Mucous retention cyst in the left maxillary sinus measures 2.2 cm. The remainder of the paranasal sinuses are clear. Mastoid air cells are clear. Nasopharynx is normal. Grip Assembler spaces are normal. Orbital contents are unremarkable. Extracranial soft tissue structures are unremarkable. Ventricles are normal in size. No hydrocephalus. No mass effect. No shift of midline. No extra-axial fluid collections. There is redemonstration of multiple supratentorial nonspecific hyperintense white matter lesions throughout the periventricular and subcortical white matter. The lesion burden is moderate. The lesions appear stable from the prior exam. There is no diffusion restriction. No acute infarction. No hemorrhagic lesions. No masses. IMPRESSION: 1. Stable MRI of the brain. 2. Redemonstration of multiple nonspecific white matter hyperintensities throughout the supratentorial white matter involving the periventricular and subcortical white matter. These can be seen with chronic microvascular ischemic change as well as the sequela of chronic migraine headaches. Demyelination is also a possibility. There are no new lesions. 3. No acute infarction. No masses. No hydrocephalus.NormalAvita [facility] CHRISTEN MULTIPLEX SCRN WITH REFLEXon [id number] Ab Ql (S)PositiveAbnormal NegativeAVITA HEALTHComment on above:PERFORMED AT [facility] HOSPITALHOMOCYSTEINEon [id number] molar conc9.5 umol/L0 - 15 umol/LAVITA HEALTHComment on above:PERFORMED AT [facility] HOSPITALHematologyon [id number] (Bld) [Velocity]13 mm/hAVITA HEALTHComment on above:Testing performed at [place], [place] [address]Nllnajk 56-78-8955Rnlkzykmrcxdyy and review of laboratory resultsAbnormalAVITA ZDMMVU86-Ifxcujlazmyljt D2+25-Hydroxyvitamin D3 [Mass/Vol] 17.4NG/MLAVITA HEALTHComment on above: DEFICIENT <20 NG/ML INSUFFICIENT 20-<30 NG/ML SUFFICIENT 30-100 NG/ML POTENTIAL TOXICITY >100 NG/ML Testing performed at [place] [address] REFLEX CHRISTEN, TITER AND PATTERNon 23-33-1738Byldvaqpxs protein B Ab Qn (S)<0.2 AVITA HEALTHChromatin Ab Qn<0.2AVITA HEALTHComment on above:[facility] double strand Ab Qn (S)1 [IU]/mLAVITA HEALTHComment on above:(NOTE) Negative <5 Equivocal 5 - 9 Positive >9 Shavonne-1 extractable nuclear Ab Qn (S)<0.2AVITA HEALTHRibonucleoprotein extractable nuclear Ab Qn (S)1.6HighAVITA HEALTHSCL-70 extractable nuclear Ab Qn (S)<0.2 AVITA HEALTHSEE BELOWCommentAVITA HEALTHComment on above:(NOTE) Autoantibody Disease Association Condition Frequency --------- Antinuclear Antibody, SLE, mixed connective Direct (CHRISTEN-D) tissue diseases --------- dsDNA SLE 40 - 60% --------- Chromatin Drug induced SLE 90% SLE 48 - 97% --------- SSA (Ro) SLE 25 - 35% Sjogren's Syndrome 40 - 70% Lupus 100% --------- SSB (La) SLE 10% Sjogren's Syndrome 30% --------- Sm (anti-Meeks) SLE 15 - 30% --------- ESCALATOR MECHANIC Mixed Connective Tissue Disease 95% (U1 nRNP, SLE 30 - 50% anti-ribonucleoprotein) Polymyositis and/or Dermatomyositis 20% --------- Scl-70 (antiDNA Scleroderma (diffuse) 20 - 35% topoisomerase) Crest 13% --------- Shavonne-1 Polymyositis and/or Dermatomyositis 20 - 40% --------- Centromere B Scleroderma - Crest variant 80% Sjogrens syndrome-A extractable nuclear Ab Qn (S)<0.2AVITA HEALTHSjogrens syndrome-B extractable nuclear Ab Qn (S)<0.2AVITA HEALTHSmith extractable nuclear Ab Qn (S)<0.2AVITA HEALTHNUC MYOCARD PERF STRESS MIBI EXERCISEon [id number] Counts [facility], DO 01/05/2019 1:34 PM Gated Excercise Myocardial Perfusion Scintigraphy Wednesday1975 43 y.o. female 01/05/2019 6:31 AM Ordering Physician: Elliot Isidro, DO [address] [place] [address] Indication Indication for stress testing is arrythmia Baseline Electrocardiogram Sinus rhythm, Nonspecific interventricular conduction delay SPECT Tomography Following the IV injection of 10 mCi of IV Cardiolite, TC-99m supine gamma camera imaging was done using 180 degree SPECT technique. Imaging was done in standard short axis, vertical and long axis views. 29 mCi of IV Cardiolite was injected immediately after Achieving heart rate on stress test andSPECT imaging was repeated. Gated SPECT imaging was also done per protocol. EKG Stress test results Patient exercise capacitywas average with a 7.4 METS. Test was stopped due to fatigue. Patient had minimal Dizziness while Walking on the treadmill without any other symptoms. Patient heart rate munira appropriately from 76 bpm to 153 eats per minute representing 86% of the maximal age-predicted heart rate. There was no EKG changes suggestive of ischemia, there was no noted arrythmias Impression Negative electrocardiographic Lexiscan stress test for ischemia. Tomographic Results The left ventricular size is normal. GatedSPECT imaging post stress revealed normal wall motion and contractility of all wall segments. The calculated ejection fraction is 71% and the calculated EDV is 49ml on post stress images. There is evidence of a small, mild intensity, partially reversible apical defect which could represent physiological thinning TID 0.96 No prior studies are available for comparison. Conclusion There is evidence of a small, mild intensity, partially reversible apical defect which could represent physiological thinning. Intact ejection fraction and no evidence of arrhythmia on EKG portion of stress testKAISER FREMONT MEDICAL CENTERTA [facility] [id number]: 1. Normal gallbladder. No biliary duct dilatation. 2. Negative for splenomegaly. Punctate echogenic foci in the spleen consistent with remote granulomatous disease. 3. Equivocal findings for a tiny nonobstructing left renal stone. Otherwise, normal appearance of the kidneys.RADIOLOGYUS ABDOMEN COMPLETE CLINICAL STATEMENT: Thrombocytopenia. Macrocytosis. COMPARISON: Right upper quadrant abdominal ultrasound May 15, 2011. TECHNIQUE: Ultrasound of the abdomen. FINDINGS: The spleenis not enlarged measuring about 10.6 x 4.8 x 4.3 cm. There are punctate echogenic foci in the spleen consistent with remote granulomatous disease. The gallbladder appears normal with no intraluminal stones, sludge, or wall thickening. Liver is not enlarged and shows a uniform echotexture with no int rinsic lesions or intrahepatic biliary duct dilatation shown. The common bile duct measures 3 mm indiameter, within normal limits. The right kidney measures 12.0 x 4.8 x 5.5 cm and appears normal. The left kidney measures 11.8 x 5.5 x 4.8 cm. A small echogenic focus is shown in the midpole of the left kidney, which is questionable for a nonshadowing stone. Otherwise, the kidney appears normal. The pancreas appears normal. The IVC appears patent as visualized. The proximal, mid, and distal portions of the abdominal aorta show no aneurysmal dilatation. No ascites is seen in the abdomen.RADIOLOGYUser, [facility] - 12/05/2018 3:22 PM EST US ABDOMEN COMPLETE CLINICAL STATEMENT: Thrombocytopenia. Macrocytosis. COMPARISON: Right upper quadrant abdominal ultrasound May 15, 2011. TECHNIQUE: Ultrasound of the abdomen. FINDINGS: The spleen is not enlarged measuring about 10.6 x 4.8 x 4.3 cm. There are punctate echogenic foci in the spleen consistent with remote granulomatous disease. The gallbladder appears normal with no intraluminal stones, sludge, or wall thickening. Liver is not enlarged and shows a uniform echotexture with no intrinsic lesions or intrahepatic biliary duct dilatation shown. The common bile duct measures 3 mm in diameter, within normal limits. The right kidney kiidumjj35.0 x 4.8 x 5.5 cm and appears normal. The left kidney measures 11.8 x 5.5 x 4.8 cm. A small echoge arnulfo focus is shown in the midpole of the left kidney, which is questionable for a nonshadowing stone. Otherwise, the kidney appears normal. The pancreas appears normal. The IVC appears patent as visualized. The proximal, mid, and distal portions of the abdominal aorta show no aneurysmal dilatation.No ascites is seen in the abdomen. IMPRESSION IMPRESSION: 1. Normal gallbladder. No biliary duct dilatation. 2. Negative for splenomegaly. Punctate echogenic foci in the spleen consistent with remotegranulomatous disease. 3. Equivocal findings for a tiny nonobstructing left renal stone. Otherwise,normal appearance of the kidneys. RADIOLOGYUS ABDOMEN COMPLETEon [id number] ABDOMEN COMPLETEUS ABDOMEN COMPLETE CLINICAL STATEMENT: Thrombocytopenia. Macrocytosis. COMPARISON: Right upper quadrant abdominal ultrasound May 15, 2011. TECHNIQUE: Ultrasound of the abdomen. FINDINGS: The spleen is not enlarged measuring about 10.6 x 4.8 x 4.3 cm. There are punctate echogenic foci in the spleen consistent with remote granulomatous disease. The gallbladder appears normal with no intraluminal stones, sludge, or wall thickening. Liver is not enlarged and shows a uniform echotexture with no intrinsic lesions or intrahepatic biliary duct dilatation shown. The common bile duct measures 3 mm in diameter, within normal limits. The right kidney measures 12.0 x 4.8 x 5.5 cm and appears normal. The left kidney measures 11.8 x 5.5 x 4.8 cm. A small echogenic focus is shown in the midpole of the left kidney, which is questionable for a nonshadowing stone. Otherwise, the kidney appears normal. The pancreas appears normal. The IVC appears patent as visualized. The proximal, mid, and distal portions of the abdominal aorta show no aneurysmal dilatation. No ascites is seen in the abdomen. IMPRESSION: 1. Normal gallbladder. No biliary duct dilatation. 2. Negative for splenomegaly. Punctate echogenic foci in the spleen consistent with remote granulomatous disease. 3. Equivocal findings for a tiny nonobstructing left renal stone. Otherwise, normal appearance of the kidneys.NormalMatheny Medical And Educational CenterB12 FOLATEon [id number] (Vitamin B12) [Mass/Vol]213 pg/bQGjcqsi578-989TgaeeKessler Institute for RehabilitationComment on above:Performed By: #### CMPF, B12F, ACBC, RTSH, LIP2 #### Testing performed at [facility] [address] [place], [place] [address]IBEGGE0.9 NG/MLNormal>5.9AKessler Institute for RehabilitationComment on above:Performed By: #### CMPF, B12F, ACBC, RTSH, LIP2 #### Testing performed at [address] [address]BVAtc 87-74-1106PKBYYZTG BAS0.1 U51PxccdiFaiisRockingham Memorial Hospital Comment on above:Performed By: #### CMPF, B12F, ACBC, RTSH, LIP2 #### Testing performed at [address] [address]TCVVZLBV EOS0.30 G48BiddmpXbdkxRockingham Memorial HospitalComment on above:Performed By: #### CMPF, B12F, ACBC, RTSH, LIP2 #### Testing performed at [address] [address]CYABIOTM NEUTROPHIL COUNT3.4 c47Qjlimf3.0-7.0[facility] Educational CenterComment on above:Performed By: #### CMPF, B12F, ACBC, RTSH, LIP2 #### Testing performed at [address] [address]Rqyhwqcff/100 WBC (Bld)0.7 %Normal0.0-2.0[facility] Comment on above:Performed By: #### CMPF, B12F, ACBC, RTSH, LIP2 #### Testing performed at [address] [address]EHVHNANUJ DIFFNoRehoboth McKinley Christian Health Care ServicesComment on above: Performed By: #### CMPF, B12F, ACBC, RTSH, LIP2 #### Testing performed at [address] [address]Oodaxgzpunw/100 WBC (Bld)3.3 %Normal0.0-11.0[facility] CenterComment on above:Performed By: #### CMPF, B12F, ACBC, RTSH, LIP2 #### Testing performed at [address] [address]Dlelafgzaij (Bld) [#/Vol]4.10 T78VgwvddYuenqRockingham Memorial Hospital Comment on above:Performed By: #### CMPF, B12F, ACBC, RTSH, LIP2 #### Testing performed at [address] [address]Zakrdvitsnj/100 WBC (Bld)49.4 %Ujejrz57.0-55.0[facility] Educational CenterComment on above:Performed By: #### CMPF, B12F, ACBC, RTSH, LIP2 #### Testing performed at [address] [address]Ytdrckjmz (Bld) [#/Vol]0.4 E34EtxvhvTlwujKessler Institute for Rehabilitation Comment on above:Performed By: #### CMPF, B12F, ACBC, RTSH, LIP2 #### Testing performed at [address] [address]Bvfrwtwer/100 WBC (Bld)5.4 %Normal0.0-10.0[facility] CenterComment on above:Performed By: #### CMPF, B12F, ACBC, RTSH, LIP2 #### Testing performed at [address] [address]Ivxcddhljue/100 WBC (Bld)41.2 %Zjydmk95.0-75.0[facility] CenterComment on above:Performed By: #### CMPF, B12F, ACBC, RTSH, LIP2 #### Testing performed at [address] [address]Vrevexgbcwx distribution width (RBC) [Ratio]14.1 %Normal 11.5-14.5ANewark [facility] HospitalComment on above:Performed By: #### CMPF, B12F, ACBC, RTSH, LIP2 #### Testing performed at [address] [address]Mpiftmzhzj (Bld) [Volume fraction]38.1 %Pduyad73.0-48.0[facility] Educational CenterComment on above:Performed By: #### CMPF, B12F, ACBC, RTSH, LIP2 #### Testing performed at [address] [address]Bgdmheoltr (Bld) [Mass/Vol]13.0 g/bYXecokx74.0-16.0[facility] CenterComment on above:Performed By: #### CMPF, B12F, ACBC, RTSH, LIP2 #### Testing performed at [address] [address]WYW (RBC) [Entitic mass]35.2 rrJitb61.0-35.0[facility] HospitalComment on above:Performed By: #### CMPF, B12F, ACBC, RTSH, LIP2 #### Testing performed at [address] [address]JREZ (RBC) [Mass/Vol]34.0 g/vCTdzyuq76.0-37.0[facility] HospitalComment on above:Performed By: #### CMPF, B12F, ACBC, RTSH, LIP2 #### Testing performed at [address] [address]YAF (RBC) [Entitic vol]103.3 fZFawv66.0-100.0[facility] Educational CenterComment on above:Performed By: #### CMPF, B12F, ACBC, RTSH, LIP2 #### Testing performed at [address] [address]Ctdavbvu mean volume (Bld) [Entitic vol]8.3 fLNormal7.4-11.0 [facility] CenterComment on above:Performed By: #### CMPF, B12F, ACBC, RTSH, LIP2 #### Testing performed at [address] [address]Pfsypbwlq (Bld) [#/Vol]253 /avfPyxhaw477.0-400.0[facility] HospitalComment on above:Performed By: #### CMPF, B12F, ACBC, RTSH, LIP2 #### Testing performed at [address] [address]EQK (Bld) [#/Vol]3.69 /cmmLow4.0-5.4ANaval Medical Center Portsmouth on above:Performed By: #### CMPF, B12F, ACBC, RTSH, LIP2 #### Testing performed at [address] [address]TMD (Bld) [#/Vol]8.2 /cmmNormal3.6-11.0[facility] Comment on above:Performed By: #### CMPF, B12F, ACBC, RTSH, LIP2 #### Testing performed at [address] [address]SMH FASTINGon 55-78-6437Wduyqoi [Mass/Vol]9.4 mg/dLNormal 8.4-10.2AKessler Institute for RehabilitationComment on above:Performed By: #### CMPF, B12F, ACBC, RTSH, LIP2 #### Testing performed at [address] [address]Gntdlzfx [Moles/Vol]109 mmol/RWyjj76-817RnekbMatheny Medical And Educational Center Comment on above:Performed By: #### CMPF, B12F, ACBC, RTSH, LIP2 #### Testing performed at [address] [address]SH4 [Moles/Vol]19 mmol/SZhj62-74AfaugMatheny Medical And Educational CenterComment on above:Performed By: #### CMPF, B12F, ACBC, RTSH, LIP2 #### Testing performed at [address] [address]Fbsjivr [Mass/Vol]91 mg/gXIuhpih30-729FdgmfMatheny Medical And Educational Center Comment on above:Result Comment: NORMAL <100 mg/dL PREDIABETES 101-126 mg/dL DIABETES 126 mg/dL or higherPerformed By: #### CMPF, B12F, ACBC, RTSH, LIP2 #### Testing performed at [address] [address]Xwfxxycei [Moles/Vol]3.9 mmol/LNormal3.5-5.1AKessler Institute for RehabilitationComment on above:Performed By: #### CMPF, B12F, ACBC, RTSH, LIP2 #### Testing performed at [address] [address]Wuypoy [Moles/Vol]137 mmol/NIcadxl407-572TesotMatheny Medical And Educational Center Comment on above:Performed By: #### CMPF, B12F, ACBC, RTSH, LIP2 #### Testing performed at [address] [address]K:G RATIO1.2 RATIOLow1.3-2.2AKessler Institute for RehabilitationComment on above:Performed By: #### CMPF, B12F, ACBC, RTSH, LIP2 #### Testing performed at [address] [address]Qxgicgx [Mass/Vol]3.8 G/dlNormal3.5-5.0[facility] on above:Performed By: #### CMPF, B12F, ACBC, RTSH, LIP2 #### Testing performed at [address] [address]ZLO [Catalytic activity/Vol]118 U/HBygyob02-324RhkikSaint Michael's Medical Centerment on above:Performed By: #### CMPF, B12F, ACBC, RTSH, LIP2 #### Testing performed at [address] [address]XZG [Catalytic activity/Vol]17 U/ULgyagt52-99YdhdlMatheny Medical And Educational CenterComment on above:Performed By: #### CMPF, B12F, ACBC, RTSH, LIP2 #### Testing performed at [address] [address]EBC [Catalytic activity/Vol]18 U/VNipeiy47-55IvifgMatheny Medical And Educational CenterComment on above:Performed By: #### CMPF, B12F, ACBC, RTSH, LIP2 #### Testing performed at [address] [address]Wiqnqbxji [Mass/Vol]0.6 mg/dLNormal0.2-1.2AKessler Institute for RehabilitationComment on above:Performed By: #### CMPF, B12F, ACBC, RTSH, LIP2 #### Testing performed at [address] [address]Apuxammhik [Mass/Vol]0.7 mg/dLNormal0.52-1.04[facility] Educational CenterComment on above:Performed By: #### CMPF, B12F, ACBC, RTSH, LIP2 #### Testing performed at [address] [address]CJR. GFR,>60NormArtesia General HospitalComment on above:Performed By: #### CMPF, B12F, ACBC, RTSH, LIP2 #### Testing performed at [address] [address]XKG. GFR,Non >60NoRehoboth McKinley Christian Health Care Services Comment on above:Performed By: #### CMPF, B12F, ACBC, RTSH, LIP2 #### Testing performed at [address] [address]OGU/1.73 sq M predicted among non-blacks MDRD (S/P/Bld) [Vol rate/Area]Average GFR for 40-49 years old = 99.[facility] Comment on above:Result Comment: Chronic Kidney disease, GFR = <60. Kidney failure, GFR = <15. The GFR estimate is not adjusted for extreme body surface area or acute process, nor has it been validated for women or ethnic groups other than and .Performed By: #### CMPF, B12F, ACBC, RTSH, LIP2 #### Testing performed at [address] [address]Evgbxeh [Mass/Vol]7.0 g/dLNormal6.3-8.2AKessler Institute for Rehabilitation Comment on above:Performed By: #### CMPF, B12F, ACBC, RTSH, LIP2 #### Testing performed at [address] [address]Qocl nitrogen [Mass/Vol]15 mg/dLNormal7-20[facility] Educational CenterComment on above:Performed By: #### CMPF, B12F, ACBC, RTSH, LIP2 #### Testing performed at [address] [address]YBEHYIPYBM A1Con 20-34-5002CzJ4a (Bld) [Mass fraction]5.4 % Normal<6AKessler Institute for RehabilitationComment on above:Result Comment: NORMAL <5.7% PREDIABETES 5.7-6.4% DIABETES 6.5% OR HIGHERPerformed By: #### HA1CT #### Testing performed at [address] [address]WuJ2j (Bld) [Mass fraction]108 mg/dLNormArtesia General HospitalComment on above:Performed By: #### HA1CT #### Testing performed at [address] [address]HMPWJ PROFILEon 63-65-9360Nshtetqncxz [Mass/Vol]191 mg/dLNormal 100-199[facility] Educational CenterComment on above:Performed By: #### CMPF, B12F, ACBC, RTSH, LIP2 #### Testing performed at [address] [address]Kavgsewazua in HDL [Mass/Vol]25 mg/vNRmk12-25XkzrzMatheny Medical And Educational CenterComment on above:Performed By: #### CMPF, B12F, ACBC, RTSH, LIP2 #### Testing performed at [address] [address]Dpjzaghdssz in LDL [Mass/Vol]104 mg/dLHigh0-100[facility] CenterComselect specialty hospital on above:Performed By: #### CMPF, B12F, ACBC, RTSH, LIP2 #### Testing performed at [address] [address]Fakdbgoofxq in VLDL [Mass/Vol]62 mg/dLHigh5.0-25.0[facility] Educational CenterComment on above:Performed By: #### CMPF, B12F, ACBC, RTSH, LIP2 #### Testing performed at [address] [address]Uvfbhdywxlm.total/Cholesterol in HDL [Mass ratio]7.64 {ratio} NormalMatheny Medical And Educational CenterComment on above:Result Comment: RISK TOTAL/HDL RATIO MEN WOMEN 1/2 AVERAGE 3.43 3.27 AVERAGE 4.97 4.44 2X AVERAGE 9.55 7.05 3X AVERAGE 23.99 11.04Performed By: #### CMPF, B12F, ACBC, RTSH, LIP2 #### Testing performed at [address] [address]Qaetbytszjuj [Mass/Vol]308 mg/dLHigh<150[facility] Comment on above:Performed By: #### CMPF, B12F, ACBC, RTSH, LIP2 #### Testing performed at [address] [address]KYD,REFLEX FREE T4on 29-12-2515ISH,REFLEX FREE T42.469 uIU/ML Normal0.45-5.33[facility] And Educational CenterComment on above:Performed By: #### CMPF, B12F, ACBC, RTSH, LIP2 #### Testing performed at [address] [address]TU HAND LEFT 3+ VIEWSon 35-42-1667VY HAND LEFT 3+ VIEWSXR HAND LEFT 3+ VIEWS, XR HAND RIGHT 3+ VIEWS CLINICAL STATEMENT: Chronic bilateral hand pain, no injury. TECHNIQUE: AP, lateral, and oblique views of each hand are evaluated. FINDINGS: There are normal-appearing soft tissues. No evidence of periarticular swelling, or erosion. No soft tissue calcifications identified. Bony structures are intact and appropriately aligned. Joint spacing is normal. Metacarpals and carpals appear to be intact as well. IMPRESSION: Normal radiographic studies of the bilateral hands. No findings of soft tissue swelling, or evidence of inflammatory arthropathy. Normal appearance to the bony structures.NormalMatheny Medical And Educational CenterXR HAND RIGHT 3+ VIEWSon 11-13-3439CW HAND RIGHT 3+ VIEWSXR HAND LEFT 3+ VIEWS, XR HAND RIGHT 3+ VIEWS CLINICAL STATEMENT: Chronic bilateral hand pain, no injury. TECHNIQUE: AP, lateral, and oblique views of each hand are evaluated. FINDINGS: There are normal-appearing soft tissues. No evidence of periarticular swelling, or erosion. No soft tissue calcifications identified. Bony structures are intact and appropriately aligned. Joint spacing is normal. Metacarpals and carpals appear to be intact as well. IMPRESSION: Normal radiographic studies of the bilateral hands. No findings of soft tissue swelling, or evidence of inflammatory arthropathy. Normal appearance to the bony structures.NormalMatheny Medical And Educational Center Vital Signs Date TimeVital SignValuePerforming LrvhaopyoBcbqvzdd33-39-0403 13:05-0400Blood Pressure LocationPatric [employer] [facility]07-19-2023 13:05-0400Diastolic blood sdivyuit15 mm[Hg]Giuseppe UMAÑA [facility]07-19-2023 13:05-0400Heart rate91 /minPatricchina UMAÑA [facility]07-19-2023 13:05-0400Systolic blood adaintbq944 mm[Hg]Giuseppe UMAÑA [facility]01-26-2023 16:00-0500Body jzptew372.02 cmCameron Ditty Other [employer] Other 01-26-2023 16:00-0500Body mass index (BMI) [Ratio] 35.78 kg/t7Dgxwvlm Ditty Other [employer] Other 01-26-2023 16:00-0500Body ymftvf63.63 kgCameron Ditty Other [employer] Other 01-26-2023 16:00-0500Diastolic blood jmknykmp14 mm[Hg] Horacio Ditty Other [employer] Other 01-26-2023 16:00-0500Systolic blood angyqxfl226 mm[Hg] Horacio Ditty Other [employer] Other 10-10-2022 12:00-0400Body gqqmyw560.02 cmCameron Ditty Other [employer] Other 10-10-2022 12:00-0400Body mass index (BMI) [Ratio] 35.78 kg/p4Kkqeszy Ditty Other [employer] Other 10-10-2022 12:00-0400Body bwelny80.63 kgHoracio Vazquez Other [employer] Other 10-10-2022 12:00-0400Diastolic blood wcrlmvwe36 mm[Hg] Horacio Vazquez Other [employer] Other 10-10-2022 12:00-0400Systolic blood mm[Hg] Horacio Vazquez Other [employer] Other 10-10-2022 11:16-0400Body weight0 kgDO Denzel House Work Phone: [facility]03-19-2019 14:00-0400 BP Dtafamjpv53 mm[Hg][facility]03-19-2019 14:00-0400BP Nlirdrzb157 mm[Hg][facility]03-19-2019 14:00-0400Pulse (Heart Rate)111 /min [facility]03-19-2019 14:00-0400Pulse Pxpmqvlh16 %[facility]03-12-2019 09:30-0400BMI (Body Mass Index)31 kg/h7LwjpyxAnthony Medical Center03-12-2019 09:30-0400Body Ixlrbumavwa30.1 [degF][facility] 01-31-2019 09:30-0400Body vmonmh91.38 kgAnthony [facility]03-12-2019 09:30-0400BP Dxwypnjqg52 mm[Hg][facility]03-12-2019 09:30-0400BP Nvpwpwtq175 mm[Hg][facility]03-12-2019 09:30-5696Pnrhlo632 cm [facility]03-12-2019 09:30-0400Pulse (Heart Rate)93 /minMelSt. [facility]03-12-2019 09:30-0400Pulse Ylyxpoin92 %[facility] 01-31-2019 09:30-0400Respiratory Rate16 /[facility]03-06-2019 09:18-0500BMI (Body Mass Index)31 kg/i7ExzpckfCHI [facility]03-06-2019 09:18-0500Body Vsctvqygapx33.6 [degF][place]03-06-2019 09:18-0500BP Qhwqbpvoo92 mm[Hg][place]03-06-2019 09:18-0500BP Dtjovted963 mm[Hg][facility]03-06-2019 09:18-0797Jpcfol111 cm [facility]03-06-2019 09:18-0500Pulse (Heart Rate)89 /[facility]03-06-2019 09:18-0500Pulse Qxwxibee34 %[facility]03-06-2019 09:18-0500Respiratory Rate16 /[facility] 01-25-2019 09:18-5907Qmheyf65.38 kgDen[place]01-24-2019 11:02-0500BMI (Body Mass Index)31.48 kg/e9SgwaxnaProMedica [facility]ostoria [facility] Work Phone: 1(785) 210-259001-24-2019 11:02-0500BP Mracjicyv41 mm[Hg][facility] Work Phone: 1(866) [phone] 11:02-0500BP Racjymhp655 mm[Hg][facility] Work Phone: 1(101) [phone] 11:02-0500Pulse (Heart Rate)100 /[facility] Work Phone: 1(493) 221-880101-24-2019 11:02-0500Pulse Ldyjdkoa59 %[facility] Work Phone: 1(985) 399-323701-24-2019 11:1540Sgwotf32.6 [facility] Work Phone: Encounters Encounter DateEncounter TypeCare ProviderFacilityStart: 09-22-2023 End: 11-02-6905lotyoxwwgdOntpkob R WATERSFacility:EU [place]Start: 09-22-2023 End: 01-54-2769Hhqbpen encounter procedurePatrick R UMAÑA [facility] Start: 06-23-2023 End: 26-31-8848roglbbkwnrJhuuuoq R WATERSFacility:FTMCStart: 06-23-2023 End: 45-70-0813pjkgbyezweNxnotgs R WATERSFacility:EU [place]Start: 06-23-2023 End: 96-18-6901Xxo Drop offParico UMAÑA [facility] Start: 06-09-2023 End: 05-27-7316vyepxqboxqXozemcx R WATERSFacility:EU [place]Start: 06-09-2023 End: 88-42-6401Bxcimsa encounter procedurePatrick Noah UMAÑA [facility] Start: 20-24-4244qgqkykgxjwIhkqsfj WATERSFacility:EU [place]Start: 12-17-2022 End: 26-23-6313rtmyeuufrdXiagdpa Ditty Other [employer] Other Start: 47-50-1256Iaemknh encounter procedureCamerodanilo LiuG GastroenterologyStart: 11-30-2022 End: 18-38-9398gutlymllxiHltxakl J DittyFacility:[facility]art: 11-30-2022 End: 49-04-7301qqimuuianmIT Denzel Granados Work Phone: [facility] Work Phone: Start: 11-30-2022 End: 99-16-7064Vhcuvst encounter procedureDO Denzel Granados Work Phone: [facility] [place] Work Phone: Start: 10-21-2022 End: 01-68-9600brbdsskggkAL ERIN TIMMISFacility:V6Gruxr: 09-30-2022 End: 13-09-8347lminmavlulNY ERIN TIMMISFacility:A8Jfamy: 09-22-2022 End: 54-79-5789wgkwblxbptFbfdmjw Ditty Other [employer] Other Start: 41-76-9641Isrbdaozk encounterCameron DittyFPG GastroenterologyStart: 09-08-2022 End: 35-42-4544yhczvkwhwlDmstann J DittyFacility:[facility] Healthtart: 09-08-2022 End: 72-93-8313riezpqlrjyHM Denzel Granados Work Phone: [facility] Work Phone: Start: 09-08-2022 End: 51-54-2906Gvayfgk encounter procedureDO Denzel Granados Work Phone: [facility]-Digestive HealthStart: 08-31-2022 End: 94-93-0194cysebaanvqWqcowlo Ditty Other [employer] Other Start: 49-62-6468XQSE visit new patientCameron Dianney FPG GastroenterologyStart: 06-04-2022 End: 41-76-5468axhblrjneuDG DENZEL HOUSEFacility:R0Akree: 05-26-2022 End: 24-80-7666zruasstxamSO DENZEL HOUSEFacility:X0Mhsae: 05-08-2022 End: 12-32-8111zzflkltwylIE DENZEL HOUSEFacility:L5Mfdmk: 11-29-2021 End: 57-70-7278kfjtwlfdakCF DENZEL HOUSEFacility:G2Ynedb: 08-15-2019 End: 71-43-1344LwrtvtLyxqqwd O Davis Work Phone: [facility] MedicineStart: 03-10-2019 End: 94-56-1067QmmbtiHfwczuc O Davis Work Phone: [facility] MedicineStart: 02-28-2019 End: 04-92-1752Yxbdprc encounter procedureSamantha Coombs Work Phone: [facility] Campusyj Neurology GalionComment on above:Migraine with aura and without status migrainosus, not intractable (Primary Dx)Start: 2019 End: 16-46-8591Gtlxgmr encounter procedureSamantha Coombs Work Phone: [facility] MRIComment on above:ArrivedStart: 02-08-2019 End: 29-77-4991Nptgmvq encounter procedureSamantha Coombs Work Phone: [facility] Neurology GalionComment on above:Medication management (Primary Dx)Start: 02-07-2019 End: 54-52-2011Anbyly outpatient visit 40 minutesMoisrael Isidro Work Phone: [facility] CardiologyComment on above: Tachycardia (Primary Dx); PFO (patent foramen ovale); Benign essential hypertension; Tobacco dependence due to cigarettes; Dizziness and giddinessStart: 02-01-2019 End: 06-02-3808Zanyoyf encounter procedureSamantha Coombs Work Phone: [facility] Neurology GalionComment on above:Intractable migraine with aura without status migrainosus (Primary Dx)Start: 01-31-2019 End: 61-74-6718Hqdgjie encounter procedureSamantha Coombs Work Phone: [facility] LaboratoryComment on above:Vitamin A deficiency disease; Migraine with aura and without status migrainosus, not intractableStart: 01-31-2019 End: 51-57-3289Decinn outpatient visit 25 minutesSamantha Coombs Work Phone: [facility] Neurology GalionComment on above:Migraine with aura and without status migrainosus, not intractable (Primary Dx); PFO (patent foramen ovale); Tachycardia; Chronic migraine without aura without status migrainosus, not intractable; Vitamin A deficiency disease; Blurred visionStart: 01-25-2019 End: 28-81-2379Omvruq outpatient visit 15 minutesDenzel Farley Work Phone: [facility] HospitalComment on above:Upper respiratory tract infection, unspecified type (Primary Dx); Flu-like symptomsStart: 01-05-2019 End: 91-52-3594Lukjhewkew hospital visit by physicianElliot Isidro Work Phone: [facility]vi [facility] MedicineComment on above:Arrived Start: 12-30-2018 End: 34-61-0148Kbehxas encounter procedureMoisrael Isidro Work Phone: [facility] CardiologyStart: 12-26-2018 End: 87-21-1243Enufewt encounter procedureElliot Isidro Work Phone: [facility] CardiologyStart: 12-19-2018 End: 02-42-8040Jhiuvzf encounter procedureOther OtherSuburban Community Hospital & Brentwood Hospitaltart: 12-15-2018 End: 83-71-4174Cfcszy outpatient visit 25 minutesMoisrael Isidro Work Phone: [facility] CardiologyComment on above: Shortness of breath (Primary Dx); Ventricular tachycardia; Shortness of breath on exertionStart: 12-05-2018 End: 00-00-9098Ejorosd encounter procedureNamikaela Zaragoza Work Phone: [facility] UltrasoundComment on above:Arrived Macrocytosis without anemiaStart: 11-24-2018 End: 89-44-3434Vchsrky encounter procedureNamikaela Zaragoza Work Phone: [facility] HospitalComment on above:Macrocytosis without anemiaStart: 11-23-2018 End: 54-52-2813Xjknvyh encounter procedurePadianne MayrufabianSt. Anthony North Health Campustess [facility] CardiologyComment on above:OtherStart: 11-17-2018 End: 95-47-2358Dknnedm encounter procedureElliot Isidro Work Phone: [facility] EchocardiographyComment on above:Arrived Start: 11-01-2018 End: 56-12-7047Ekexzqc encounter procedureSamantha Coombs Work Phone: [facility] Neurology GalionComment on above:Migraine with aura and without status migrainosus, not intractable (Primary Dx)Start: 10-17-2018 End: 76-09-3079Wblnatm encounter procedureElliot Isidro Work Phone: [facility] CardiologyStart: 10-04-2018 End: 92-21-8614Alqciyn encounter procedureElliot Isidro Work Phone: [facility] Cardiology Procedures DateProcedureProcedure DetailPerforming ClinicianStart: 12-74-8058Povezswvhk elastography of liverDO Denzel Topock Work Phone: Start: 29-05-9493Jkxfluqcpkx antibodies anaMelany F Corin Work Phone: Start: 80-95-8579Sipcm of homocysteineMelany F Corin Work Phone: Start: 92-39-4311FWVBRA CHRISTEN, TITER AND PATTERNMelany F Corin Work Phone: Start: 41-56-5451Znuimyraqpblq rate rbc automated Samantha Vernon Coombs Work Phone: Start: 89-77-843429 hydroxy includes fractions if performedMelany F Raedy Work Phone: Start: 14-77-2460Hwhzweqfcrof imaging of perfusion of myocardium under exercise stressOttoisrael Isidro Work Phone: Start: 12-05-2018 End: 29-88-5630Rmpuwsbaoqxllta of abdomenNaushwon Zaragoza Work Phone: Start: 82-69-3323Lfplf 1996 panel - Serum or Plasma Mohamad SaabColonoscopyPatrick UMAÑA HysterectomyPatrick UMAÑA Plan of Treatment DateCare ActivityDetailAuthorStart: 39-90-5778Nosvphi lipid profileLIPID SCREENINGMount Vernon Hospitals [facility] Work Phone: Start: 22-37-4707OmznpxhmvAdena [facility] Start: 37-69-0324WV Fibroscan (Not Applicable) Fibroscan (Not Applicable) [facility]: 08-10-2019 End: 56-36-6499Knwgez Visit08/10/2019 Office Visit Cardiovascular Medicine Elliot Isidro, DO [address] [place] [address] [phone] [facility] CardiologyStart: 07-28-2019 End: 73-51-5968Zkhwas Visit07/28/2019 Office Visit Family Medicine Denzel Farley PA [address] [address] [phone] [facility] BengeStart: 32-98-6225TcjhetteaBarton County [facility] Hospital Start: 05-02-2019 End: 28-19-0017Ukrhbn Visit05/02/2019 Office Visit Neurology Samantha Coombs, DO [address] [place] [address] [phone] [facility] Main Campustart: 04-11-2019 End: 68-36-2408Kdjwrf Visit04/11/2019 Office Visit Rheumatology Aliza Brooks, Tom Rousseau, DO [address] [place] [address] [phone] [facility] RheumatologyStart: 01-31-2019 End: 28-71-1624XVS of brain and brain stemMRI BRAIN WITHOUT CONTRAST Imaging Routine Blurred vision Expected: 01/31/2019, Expires: 02/01/2020[facility] Svbtle Comment on above:Expected: 01/31/2019, Expires: 02/01/2020Start: 01-31-2019 End: 12-68-5485Gxlzbuaeyc77/10/2019 Office Visit Neurology janinaSamantha hewitt Vernon, DO [address] [place] [address] [phone] [place] [facility] [address] [facility] PartnersionStart: 01-25-2019 End: 18-46-8182Taduhdqdqw65/06/2019 Office Visit Family Medicine Denzel Farley PA [address] [place] [address] [phone] [facility]: [facility] End: 11-16-7196Bqkwasszihys imaging of perfusion of myocardium under exercise stressNUC MYOCARD PERF STRESS MIBI EXERCISE Routine Ventricular tachycardia Expected: 12/15/2018, Expires: 12/15/2019[facility] Work Phone: Comment on above:Expected: 12/15/2018, Expires: 12/15/2019Start: 12-15-2018 End: 05-05-2729Spovdecgmq08/24/2019 Office Visit Cardiovascular Medicine Dwaine Ashantiwendy Gonzales, DO [address] [facility] [place] [address] [phone] [facility] CardiologyStart: 12-08-2018 End: 09-90-6575Ypikklnmlp54/17/2019 Office Visit Cardiovascular Medicine Elliot Isidro, DO [address] [facility] [place] [address] [phone] [facility] CardiologyStart: 12-05-2018 End: 81-57-0660Ochufctffw02/14/2019 Appointment Ultrasound Kasey Zaragoza MD [address] [place] [address] [phone] [facility] UltrasoundStart: 11-24-2018 End: 40-86-6007Inypbaygsoiagfq of abdomenUS ABDOMEN RUQ/LIVER/GB Routine Macrocytosis without anemia Expected: 11/24/2018, Expires: 11/24/2019[facility] Work Phone: Comment on above:Expected: 11/24/2018, Expires: 11/24/2019Start: 11-01-2018 End: 73-09-1926Dymuzrwjus76/11/2018 Office Visit Neurology Samantha Coombs, DO [address] [place] [address] [phone] [facility] Camp[facility]: 10-27-2018 End: 12-10-5378LxvtazbegpSjxcy Family Medicine BengeStart: 10-07-2018 End: 08-42-1593Uiqfsuzfgn80/16/2018 Appointment Mammography AvinashCamila, [address] [place] [address] [phone] [facility] MammographyStart: 98-00-1295Dncwvgpsl vaccinationINFLUENZA VACCINE (#1)[facility] Work Phone: Start: 97-93-7051Kdvkkfz mass concMAMMOGRAM SCREENING [facility] Work Phone: Start: 27-71-4302Blbcnmuaz mammographyMAMMOGRAM SCREENING DISCUSSIONGrand [facility] Work Phone: Start: 65-08-6075Cwagkzrod for malignant neoplasm of cervixPAP SMEAR [facility] Work Phone: Start: 54-55-4205Zxpix diphtheria, tetanus and acellular pertussis (DTaP) vaccinationTDAP (ADULT)[facility] Work Phone: Start: 45-41-3299Ubftedq vaccinationTETANUSGrand [facility] Work Phone: Start: 75-16-1195KBW screeningHIV SCREENING DISCUSSION [facility] Work Phone: actin smooth muscle IgG Ab [Units/volume] in Serum [facility] Work Phone: Alanine aminotransferase [Enzymatic activity/volume] in Serum or Plasma by No addition of P-5'-PFHolmes County [facility] Work Phone: Albumin [Mass/volume] in Serum or [facility] Work Phone: Albumin/Globulin ratioKettering Health [facility]tr Work Phone: Alkaline phosphatase [Enzymatic activity/volume] in Serum or PlasmaK[facility] Work Phone: Alpha 1 antitrypsin [Mass/volume] in Serum or Plasma [facility] Work Phone: ANA MULTIPLEX SCRN WITH REFLEXANA MULTIPLEX SCRN WITH REFLEX Lab Routine Migraine with aura and without status migrainosus, not in tractable 01/31/2019 10:40 AM EDTAVITA HEALTHAspartate aminotransferase [Enzymatic activity/volume] in Serum or PlasmaK[facility] Work Phone: Basophil countK[facility] Work Phone: Basophil percent differential countKet[facility] Work Phone: Bilirubin.direct [Mass/volume] in Serum or Plasma [facility] Work Phone: Bilirubin.indirect [Mass/volume] in Serum or Plasma [facility] Work Phone: Bilirubin.total [Mass/volume] in Serum or Plasma [facility] Work Phone: Calculated LDL cholesterol levelKettering Health [facility]tr Work Phone: End: 44-47-9070Czwtclo event recordingEVENT MONITOR, CARDIAC Routine Dizziness and giddiness Benign essential hypertension Abnormal EKG Status post patent foramen ovale closure 1 Occurrences starting 11/17/2018 until 11/17/2018[facility] Work Phone: Comment on above:1 Occurrences starting 11/17/2018 until 11/17/2018Cefuroxime free [Mass/volume] in Serum or PlasmaK[facility] Work Phone: Ceruloplasmin [Mass/volume] in Serum or Plasma [facility] Work Phone: Cholesterol [Mass/volume] in Serum or PlasmaK[facility] Work Phone: Cholesterol in HDL [Mass/volume] in Serum or Plasma [facility] Work Phone: Cholesterol.total/Cholesterol in HDL [Mass Ratio] in Serum or PlasmaK[facility] Work Phone: Eosinophil percent differential countKettering Health [facility] Work Phone: Eosinophils [#/volume] in BloodKettering Health [facility] Work Phone: Ferritin [Mass/volume] in Serum or PlasmaK[facility] Work Phone: Globulin [Mass/volume] in SerumK[facility] Work Phone: Hepatitis B core antibody measurementMetrohealth [facility] Work Phone: Hepatitis B virus surface Ab [Presence] in Serum [facility] Work Phone: Hepatitis B virus surface Ag [Presence] in Serum or Plasma by ImmunoassayMetrohealth Cleveland Heights Medical Center Work Phone: Hepatitis C virus Ab Signal/Cutoff in Serum or Plasma by ImmunoassayMetrohealth Cleveland Heights [facility] Center Work Phone: HOMOCYSTEINEHOMOCYSTEINE Lab Routine Migraine with aura and without status migrainosus, not intractable 01/31/2019 10:40 AM EDT AVITA HEALTHIron [Mass/volume] in Serum or PlasmaKet[facility] Work Phone: Iron binding capacity [Mass/volume] in Serum or Plasma [facility] Work Phone: Iron saturation [Mass Fraction] in Serum or Plasma [facility] Work Phone: Lymphocyte countMetrohealth [facility] Center Work Phone: Lymphocyte percent differential countKettering Health [facility]tr Work Phone: Mitochondria M2 IgG Ab [Units/volume] in Serum [facility] Work Phone: Monocyte countKettering Health [facility]tr Work Phone: Monocyte percent differential countKettering Health [facility]tr Work Phone: End: 66-81-0424KGG of brain and brain stemMRI BRAIN WITHOUT CONTRAST Imaging Routine Blurred vision 1 Occurrences starting 2019 until 2019AVITA HEALTHComment on above:1 Occurrences starting 2019 until 2019MRI of brain and brain stemMRI BRAIN WITHOUT CONTRAST Imaging Routine Blurred vision 2019 11:10 AM EDTAVITA HEALTHNeutrophil countKettering Health Preble Ctr Work Phone: Neutrophil percent differential countKettering Health [facility] Work Phone: Protein [Mass/volume] in Serum or PlasmaKettering [facility] Work Phone: Transferrin measurementKettering Health [facility]tr Work Phone: End: 36-12-0019Iigflsvcwfyvf echocardiographyECHOCARDIOGRAM Routine Dizziness and giddiness Benign essential hypertension Status post patent foramen ovale closure 1 Occurrences starting 11/17/2018 until 11/17/2018[facility] Work Phone: Comment on above:1 Occurrences starting 11/17/2018 until 11/17/2018Transthoracic echocardiographyECHOCARDIOGRAM Routine Dizziness and giddiness Benign essential hypertension Status post patent foramen ovale closure 11/17/2018 11:18 AM [facility] Work Phone: Triglyceride [Mass/volume] in Serum or PlasmaKettering Health [facility] Work Phone: VLDL cholesterol measurementKettering Health [facility]tr Work Phone: Immunizations Immunization DateImmunizationNotesCare DglkkuluFmhwktev25-80-4017QRZE-DdC-7 (COVID-19) mRNA BNT-162b2 vaxFrankfort Regional Medical Centerchina UMAÑA [facility]07-30-2021SARS-CoV-2 (COVID-19) mRNA BNT-162b2 vaxTrenton UMAÑA [facility]08-29-2019influenza virus vaccine, unspecified formulationTrenton UMAÑA [facility] DatePayer CategoryPayerPolicy [id number] HEALTH PLAN [employer] xxxxxxxxxxxx 08/22/2018-Presentxxxxxxxxxxxx [id number] 2..1.749171.3.57[id number] 2..1.012424.3.57[id number] 2..1.284462.3.57[id number] 2..1.494575.3.57[id number] 2.0.1.158345.3.57[id number] 2..1.723539.3.57[id number] 2.0.1.102692.3.57[id number] 2.0.1.465266.3.57[id number] 2.0.1.426452.3.57[id number] 2.840.1.966217.3.57[id number] 2.840.1.521216.19 [id number] 2.0.1.7[id number] 2.840.1.122316.3.579.2.531 Social History DateTypeDetailFacilityStart: 09-30-2018 End: 49-58-8283Iuuaeap smoking status NHISCurrent every day smokerGrand [facility] Work Phone: History of tobacco useCigarette SmokerGrand Lake Joint Township District [facility] Work Phone: Start: 09-30-2018 End: 64-61-4990Spzcvpvvjz smoked current (pack per day) - [facility] Work Phone: Sex Assigned At BirthNot on [facility] Work Phone: Start: 26-40-5810Koykhkq intakeNot [facility] Campustart: 71-83-9716Ahg [facility] At [facility]tart: 06-09-2023 End: 52-79-7121Oxfvfjn smoking statusHeavy tobacco smoker (finding)[facility]Tobacco smoking statusSmoker (finding)[facility]ob[facility] smoking statusNeverExec[facility] Goals DatePatient GoalDesired Activity/State Functional Status AjnjUljenfltlnSxeycvZdhtwgdy46-48-1893Ihvmrycalz StatusN/AExec[facility] Clinical Notes 08-31-2022 to 06-09-2023 Note Date & EatbGajjMwkysyev80-29-5127 Hospital Discharge instructions Patient Education 06/09/2023 13:08:22 Dietary Guidelines to Help Prevent Kidney Stones Dietary Guidelines to Help Prevent Kidney Stones Kidney stones are deposits of minerals and salts that form inside your kidneys. Your risk of developing kidney stones may be greater depending on your diet, your lifestyle, the medicines you take, and whether you have certain medical conditions. Most people can lower their chances of developing kidney stones by following the instructions below. Your dietitian may give you more specific instructions depending on your overall health and the type of kidney stones you tend to develop. What are tips for following this plan? Reading food labels Choose foods with no salt added or low-salt labels. Limit your salt (sodium) intake to less than 1,500 mg a day. Choose foods with calcium for each meal and snack. Try to eat about 300 mg of calcium at each meal.Foods that contain 200 500 mg of calcium a serving include: ?8 oz (237 mL) of milk, zpfnzmr-maaqzlbfjrwu-yzhic milk, and calcium- fortifiedfruit juice. Calcium-fortified means that calcium has been added to these drinks. ?8 oz (237 mL) of kefir, yogurt, and soy yogurt. ?4 oz (114 g) of tofu. ?1 oz (28 g) of cheese. ?1 cup (150 g) of dried figs. ?1 cup (91 g) of cooked broccoli. ?One 3 oz (85 g) can of sardines or mackerel. Most people need 1,000 1,500 mg of calcium a day. Talk to your dietitian about how much calcium is recommended for you. Shopping Buy plenty of fresh fruits and vegetables. Most people do not need to avoid fruits and vegetables, even if these foods contain nutrients that may contribute to kidney stones. When shopping for convenience foods, choose: ?Whole pieces of fruit. ?Pre-made salads with dressing on the side. ?Low-fat fruit and yogurt smoothies. Avoid buying frozen meals or prepared deli foods. These can be high in sodium. Look for foods with live cultures, such as yogurt and kefir. Choose high-fiber grains, such as whole-wheat breads, oat bran, and wheat cereals. Cooking Do not add salt to food when cooking. Place a salt shaker on the table and allow each person to addhis or her own salt to taste. Use vegetable protein, such as beans, textured vegetable protein (TVP), or tofu, instead of meat inpasta, casseroles, and soups. Meal planning Eat less salt, if told by your dietitian. To do this: ?Avoid eating processed or pre-made food. ?Avoid eating fast food. Eat less animal protein, including cheese, meat, poultry, or fish, if told by your dietitian. To dothis: ?Limit the number of times you have meat, poultry, fish, or cheese each week. Eat a diet free of meat at least 2 days a week. ?Eat only one serving each day of meat, poultry, fish, or seafood. ?When you prepare animal protein, cut pieces into small portion sizes. For most meat and fish, one serving is about the size of the palm of your hand. Eat at least five servings of fresh fruits and vegetables each day. To do this: ?Keep fruits and vegetables on hand for snacks. ?Eat one piece of fruit or a handful of berries with breakfast. ?Have a salad and fruit at lunch. ?Have two kinds of vegetables at dinner. Limit foods that are high in a substance called oxalate. These include: ?Spinach (cooked), rhubarb, beets, sweet potatoes, and Israeli chard. ?Peanuts. ?Potato chips, ukrainian fries, and baked potatoes with skin on. ?Nuts and nut products. ?Chocolate. If you regularly take a diuretic medicine, make sure to eat at least 1 or 2 servings of fruits or vegetables that are high in potassium each day. These include: ?Avocado. ?Banana. ?[place], prune, carrot, or tomato juice. ?Baked potato. ?Cabbage. ?Beans and split peas. Lifestyle Drink enough fluid to keep your urine pale yellow. This is the most important thing you can do. Spread your fluid intake throughout the day. If you drink alcohol: ?Limit how much you use to: ?0 1 drink a day for women who are not . ?0 2 drinks a day for men. ?Be aware of how much alcohol is in your drink. In the [place] one drink equals one 12 oz bottle of beer (355 mL), one 5 oz glass of wine (148 mL), or one 1 oz glass of hard liquor (44 mL). Lose weight if told by your health care provider. Work with your dietitian to find an eating plan and weight loss strategies that work best for you. General information Talk to your health care provider and dietitian about taking daily supplements. You may be told thefollowing depending on your health and the cause of your kidney stones: ?Not to take supplements with vitamin C. ?To take a calcium supplement. ?To take a daily probiotic supplement. ?To take other supplements such as magnesium, fish oil, or vitamin B6. Take gcyl-zot-yrfcpzo and prescription medicines only as told by your health care provider. These include supplements. What foods should I limit? Limit your intake of the following foods, or eat them as told by your dietitian. Vegetables Spinach. Rhubarb. Beets. Canned vegetables. Pickles. Olives. Baked potatoes with skin. Grains Wheat bran. Baked goods. Salted crackers. Cereals high in sugar. Meats and other proteins Nuts. Nut butters. Large portions of meat, poultry, or fish. Salted, precooked, or cured meats, such as sausages, meat loaves, and hot dogs. Dairy Cheese. Beverages Regular soft drinks. Regular vegetable juice. Seasonings and condiments Seasoning blends with salt. Salad dressings. Soy sauce. Ketchup. Barbecue sauce. Other foods Canned soups. Canned pasta sauce. Casseroles. Pizza. Lasagna. Frozen meals. Potato chips. Colombian fries. The items listed above may not be a complete list of foods and beverages you should limit. Contact a dietitian for more information. What foods should I avoid? Talk to your dietitian about specific foods you should avoid based on the type of kidney stones youhave and your overall health. Fruits Grapefruit. The item listed above may not be a complete list of foods and beverages you should avoid. Contact adietitian for more information. Summary Kidney stones are deposits of minerals and salts that form inside your kidneys. You can lower your risk of kidney stones by making changes to your diet. The most important thing you can do is drink enough fluid. Drink enough fluid to keep your urine pale yellow. Talk to your dietitian about how much calcium you should have each day, and eat less salt and animal protein as told by your dietitian. This information is not intended to replace advice given to you by your health care provider. Make sure you discuss any questions you have with your health care provider. Document Revised: 07/20/2022 Document Reviewed: 07/20/2022 [employer] Patient Education 2022 RegisterPatient. Follow Up Care 06/04/2023 16:09:01 With:Giuseppe UMAÑA MD, URL Address: [facility] [address], [place] [address]- When: Unknown [facility] 01-26-2023 Evaluation note* Encounter Date Diagnosis Assessment Notes Treatment Notes Treatment Clinical Notes Nov, Fatty liver (ICD-10 - K76.0) Discussed managing risk factors like weight management Follow up PRN Nov,Liver fibrosis (ICD-10 - K74.00) [facility] Other 11-01-2022 Evaluation note* Encounter Date Diagnosis Assessment Notes Treatment Notes Treatment Clinical Notes Sep, Elevated LFTs (ICD-10 - R79.89) Sep,Fatty liver (ICD-10 - K76.0) [facility] Other 10-10-2022 Evaluation note* Encounter Date Diagnosis Assessment Notes Treatment Notes Treatment Clinical Notes Aug, Elevated LFTs (ICD-10 - R79.89) Aug,Fatty liver (ICD-10 - K76.0) [facility] Other Evaluation + Plan note Future Appointments Appointment Date:06/23/2023 10:45:00 AM Scheduled Provider:Giuseppe UMAÑA MD Location:[facility] Appointment Type:URO Office Visit [facility] Evaluation + Plan note Future Appointments Appointment Date:09/22/2023 10:15:00 AM Scheduled Provider:Giuseppe UMAÑA MD Location:[facility] Appointment Type:URO Office Visit Diagnostic Tests Pending * Calculi Analysis [facility] information available [facility] Work Phone: Histjtp general Narrative - Reported* Type Description Date Surgical History hysterectomy [facility] Other [facility] general Narrative - Reported* Type Description Date Surgical History hysterectomy Hospitalization Historynone [facility] Other Hospital course Narrative No data available for this section [facility] Hospital Discharge instructions No data available for this section [facility] No data available for this section [facility] Assessments DiagnosisMigraine with aura and without status migrainosus, not intractable - Primary Migraine with aura, without mention of intractable migraine without mention of status migrainosus DiagnosisDizziness and giddinessBenign essential hypertension Essential hypertension, benign Status post patent foramen ovale closure Other postprocedural status DiagnosisDizziness and giddinessBenign essential hypertension Essential hypertension, benign Abnormal EKG Nonspecific abnormal electrocardiogram (ECG) (EKG) Status post patent foramen ovale closure Other postprocedural status Diagnosis Macrocytosis without anemia Other specified diseases of blood and blood-forming organs Diagnosis Shortness of breath- Primary Ventricular tachycardia Paroxysmal ventricular tachycardia Shortness of breath on exertion Shortness of breath Diagnosis Upper respiratory tract infection, unspecified type- Primary Flu-like symptoms Influenza with other respiratory manifestations Diagnosis Vitamin A deficiency disease Unspecified vitamin A deficiency Migraine with aura and without status migrainosus, not intractable Migraine with aura, without mention of intractable migraine without mention of status migrainosus Diagnosis Intractable migraine with aura without status migrainosus- Primary Migraine with aura, with intractable migraine, so stated, without mention of status migrainosus Diagnosis Tachycardia- Primary Tachycardia, unspecified PFO (patent foramen ovale) Ostium secundum type atrial septal defect Benign essential hypertension Essential hypertension, benign Tobacco dependence due to cigarettes Dizziness and giddiness Diagnosis Medication management- Primary Encounter for other specified aftercare Diagnosis Blurred vision Other specified visual disturbances Diagnosis Migraine with aura and without status migrainosus, not intractable- Primary Migraine with aura, without mention of intractable migraine without mention of status migrainosus Diagnosis Migraine with aura and without status migrainosus, not intractable- Primary Migraine with aura, without mention of intractable migraine without mention of status migrainosus PFO (patent foramen ovale) Ostium secundum type atrial septal defect Tachycardia Tachycardia, unspecified Chronic migraine without aura without status migrainosus, not intractable Chronic migraine without aura, without mention of intractable migraine without mention of status migrainosus Vitamin A deficiency disease Unspecified vitamin A deficiency Blurred vision Other specified visual disturbances Diagnosis Ventricular tachycardia Paroxysmal ventricular tachycardia Reason for Referral StatusReasonSpecialtyDiagnoses / ProceduresReferred By ContactReferred To ContactClosed Diagnoses Dizziness and giddiness Benign essential hypertension Status post patent foramen ovale closure Procedures ECHOCARDIOGRAM Elliot Isidro, DO [address] [place] [address] StatusReasonSpecialtyDiagnoses / ProceduresReferred By ContactReferred To ContactClosed Diagnoses Dizziness and giddiness Benign essential hypertension Abnormal EKG Status post patent foramen ovale closure Procedures EVENT MONITOR, CARDIAC Elliot Isidro, DO [address] [place] [address] StatusReasonSpecialtyDiagnoses / ProceduresReferred By ContactReferred To ContactAuth Not Needed Diagnoses Macrocytosis without anemia Procedures US ABDOMEN RUQ/LIVER/GB Kasey Zaragoza MD [address] [place] [address] StatusReasonSpecialtyDiagnoses / ProceduresReferred By ContactReferred To ContactNew Request Diagnoses Macrocytosis without anemia Procedures US ABDOMEN COMPLETE US ABDOMEN RUQ/LIVER/GB Kasey Zaragoza MD [address] [place] [address] StatusReasonSpecialtyDiagnoses / ProceduresReferred By ContactReferred To ContactNew Request Diagnoses Ventricular tachycardia Procedures NUC MYOCARD PERF STRESS MIBI EXERCISE IA CHG MYOCARDIAL SPECT MULTIPLE STUDIES IA CARDIAC STRESS TST,TRACING ONLY Elliot Isidro, DO [address] [place] [address] StatusReasonSpecialtyDiagnoses / ProceduresReferred By ContactReferred To ContactNew RequestRheumatology Diagnoses Intractable migraine with aura without status migrainosus Samantha Coombs, DO [address] [place] [address] StatusReasonSpecialtyDiagnoses / ProceduresReferred By ContactReferred To ContactClosedMagnetic Resonance Imaging Diagnoses Blurred vision Procedures MRI BRAIN WITHOUT CONTRAST IA MRI BRAIN Samantha Coombs, DO [address] [place] [address] [facility] [address] [place] [address] StatusReasonSpecialtyDiagnoses / ProceduresReferred By ContactReferred To ContactClosed Samantha Coombs, DO [address] [place] [address] StatusReasonSpecialtyDiagnoses / ProceduresReferred By ContactReferred To ContactNew Request Diagnoses Blurred vision Procedures MRI BRAIN WITHOUT CONTRAST IA MRI BRAIN Samantha Coombs, DO [address] [place] [address] StatusReasonSpecialtyDiagnoses / ProceduresReferred By ContactReferred To ContactClosed Diagnoses Ventricular tachycardia Procedures NUC MYOCARD PERF STRESS MIBI EXERCISE IA CHG MYOCARDIAL SPECT MULTIPLE STUDIES IA CARDIAC STRESS TST,TRACING ONLY Elliot Isidro, DO [address] [place] [address] Summary Purpose Family History No Family History Records FoundNo Family History Records FoundNo Family History Records FoundNo Family History Records FoundNo Family History Records Found No data available for this section No Family History Records Found Advance Directives No Advanced Directives Records Found Advance Directive Response Recorded Date/ Time Advance Directives No September 08, 2022 12:20pm Advance Directive Response Recorded Date/ Time Advance Directives No September 08, 2022 11:20am History of Present Illness * DwaineSolitariojerad JanetDO - 12/15/2018 11:00 AM EST Formatting of this note may be different from the original. Chief Complaint Patient presents with Follow-up Holter and Echo completed History of Present Illness 43 y.o. female was seen in my office today to to follow-up on recent testing. Patient continues to experience episodes of palpitations and dizziness. She had a 13 day eventmonitor which showed some PVCs most importantly showed run off wide-complex tachycardia. Patient still has intermittent episodes of dizziness, sometimes it's related to positional changes other times it is not. She was noted to have increase in her pulse upon standing from sitting position.she describes occasional shortness of breath which might be related to activity Allergies Allergen Reactions Zithromax [Azithromycin] Outpatient Medications Prior to Visit Medication Sig Dispense Refill amitriptyline 25 MG Tab tablet Take 1 tablet by mouth at bedtime. 30 tablet 2 aspirin 81 MG Tab Take 81 mg by mouth daily. cetirizine 10 MG Tab tablet Take 10 mg by mouth daily. lisinopril 10 MG Tab tablet Take 10 mg by mouth daily. Magnesium 400 MG Tab 1 po q pm 30 tablet 3 naratriptan (AMERGE) 2.5 MG Tab 1 po prn migraine max 5mg/day; may repeat in 4 hr x1 8 tablet 3 omeprazole (PRILOSEC) [address] capsule Take 40 mg by mouth daily. ondansetron 4 MG Tab tablet 1 po q 8 hours prn nausea 10 tablet 3 Riboflavin 100 MG Cap 1 po bid 100 capsule 3 topiramate 100 MG Tab tablet Take 1 tablet by mouth 2 times daily. 180 tablet 1 No facility-administered medications prior to visit. Family History Problem Relation Age of Onset Lung Cancer Mother Cancer- Other Mother Cancer- Other Sister Depression Sister Breast Cancer Maternal Aunt Heart Disease - Other Maternal Uncle Myocardial Infarction Maternal Uncle has a past surgical history that includes hysterectomy (2012) and ovarian surgery (2014). Social History Social History Marital status: Single Spouse name: N/A Number of children: N/A Years of education: N/A Occupational History Not on file. Social History Main Topics Smoking status: Current Every Day Smoker Packs/day: 0.50 Types: Cigarettes Smokeless tobacco: Never Used Alcohol use Not on file Drug use: Unknown Sexual activity: Not on file Other Topics Concern Not on file Social History Narrative No narrative on file Review of System Constitutional: positive for fatigue, significant weight loss Hematologic: Negative anemia, cancer, clotting disorder Endocrine: Negative diabetes, thyroid abnormality, flushing Skin: Negative rash, no ulcerations, no jaundice HEENT: Negative visual cut, diplopia or vertigo Cardiovascular: occasional palpitations, no chest pain, syncope, edema Respiratory: occasional shortness of breath, cough, wheeze Gastrointestinal: Negative for abdominal pain, hepatic upper or lower GI abnormalities Genitourinary: Negative for , dysuria, hematuria, nephrolithiasis Neurological: positive fordizziness,negative for TIA, CVA,history of paresthesias an approximately in lower extremities Psychiatric: Negative depression, anxiety, psychiatric disorder Musculoskeletal: Negative for joint pain, swelling, deformity Blood pressure 126/68, pulse 100, weight 80.6 kg (177 lb 11.2 oz), last menstrual period 09/30/2015, SpO2 96 %, not currently . Body mass index is 31.48 kg/m . Physical Exam General appearance - alert and oriented, well developed, well nourished HEENT AT/NC, EOMI, Trachea midline Neck - , No JVD or bruits. No thyromegaly Lungs - clear to auscultation, no wheezes,no rales or rhonchi. Good inspiratory effort Heart - regular rate and regular rhythm, normal S1 and S2 , no significant murmurs,no click rub or lift , No shifting in PMI Abdomen - soft, nontender, no organomegaly, intact BS Extremities -no Edema, warm feet bilateral no open sores or lesions , intact pedal pulses B/L Psych- appropriate mood, appropriate affect Musculoskeletal - no joint deformity, or significant edema Neurological: CN II-XII GI , no focal motor or sensory deficits Lab Results: Lab Results Component Value Date SODIUM 137 10/01/2018 POTASSIUM 3.9 10/01/2018 CALCIUM 9.4 10/01/2018 CHLORIDE 109 (H) 10/01/2018 TP 7.0 10/01/2018 BUN 15 10/01/2018 CREATSERUM 0.7 10/01/2018 ALBUMIN 3.8 10/01/2018 BILITOTAL 0.6 10/01/2018 AST 18 10/01/2018 ALKPHOS 118 10/01/2018 CO2 19 (L) 10/01/2018 AGRATIO 1.2 (L) 10/01/2018 ALT 17 10/01/2018 GFR >60 10/01/2018 GFRAA >60 10/01/2018 GFRCOMMENT Average GFR for 40-49 years old = 99. 10/01/2018 GLUCOSE 91 10/01/2018 Lab Results Component Value Date CHOLESTEROL 191 10/01/2018 TRIG 308 (H) 10/01/2018 HDL 25 (L) 10/01/2018 LDLCALC 104 (H) 10/01/2018 BLDL 62 (H) 10/01/2018 TCHHDLMANENT 7.64 10/01/2018 Lab Results Component Value Date WBC 8.2 10/01/2018 RBC 3.69 (L) 10/01/2018 HGB 13.0 10/01/2018 HCT 38.1 10/01/2018 MCV 103.3 (H) 10/01/2018 MEANCELHGB 35.2 (H) 10/01/2018 MEANCELHGCON 34.0 10/01/2018 RBCDISTRIBU 14.1 10/01/2018 PLATELET 253 10/01/2018 MPV 8.3 10/01/2018 NEUTROPHILS 41.2 10/01/2018 LYMPHOCYTES 49.4 10/01/2018 MONOCYTE 5.4 10/01/2018 EOSINOPHILS 3.3 10/01/2018 EOSINOPHILS 0.30 10/01/2018 BASOPHILS 0.7 10/01/2018 BASOPHILS 0.1 10/01/2018 DIFFTYPE AUTO DIFF 10/01/2018 HGBA1C 5.4 10/01/2018 ESTAVGGLUCOS 108 10/01/2018 Assessment & Plan . Dizziness and giddiness: event monitor was reviewed and while the patient did not activate the monitor when she was having symptoms additional an episode of wide complex tachycardia/V. Tach. That in association with her shortness of breath . I will go ahead and obtain stress test . Echocardiogram showed preserved ejection fraction with normal sized RV . Beta blockers to be initiated after stress test in order not to mask any ischemia . Patient could possibly have underlying POTS as she was noted to have tachycardia with standing inoffice today. Will add beta blockers in the near future. . Benign essential hypertension .controlled, cont with current RX . Check echocardiogram . Status post patent foramen ovale closure . Echo within normal limits . Cont with ASA . Lipid panel being checked .tobacco abuse . Patient working on cutting back and eventually full cessation We'll see back in 3 months Elliot Isidro DO 12/15/2018 12:29 PM in this encounter* Denzel Farley PA - 01/25/2019 9:15 AM EST History of Present Illness URI Symptoms Wednesday complains of an upper respiratory symptoms. Onset of symptoms was . Status: worse. Severity moderate. Frequency: constant. Current symptoms include nasal symptoms, sinus issues, headache. Quality of cough: none. Aggravating by none. Relieved by none. Sick contacts: Yes. She also notes muscle aches and fatigue. Review of Systems Constitutional: Positive for fatigue. Negative for chills, diaphoresis and fever. HENT: Positive for congestion, sinus pressure and sinus pain. Negative for dental problem, drooling, ear discharge, ear pain, facial swelling, hearing loss, mouth sores, nosebleeds, postnasal drip, rhinorrhea, sneezing, sore throat, tinnitus, trouble swallowing and voice change. Eyes: Negative. Respiratory: Negative for cough, shortness of breath and wheezing. Cardiovascular: Negative for chest pain, palpitations and leg swelling. Gastrointestinal: Negative for abdominal pain and blood in stool. Genitourinary: Negative for dysuria. Musculoskeletal: Positive for myalgias. Negative for back pain. Skin: Negative for color change, pallor, rash and wound. Neurological: Positive for headaches. Negative for dizziness. Hematological: Negative for adenopathy. Does not bruise/bleed easily. Psychiatric/Behavioral: Negative for self-injury, sleep disturbance and suicidal ideas. The patientis not nervous/anxious. Vitals: Blood pressure 132/84, pulse 89, temperature 98.6 F (37 C), temperature source Oral, resp. rate 16, height 1.6 m (5' 3 ), weight 79.4 kg (175 lb), last menstrual period 09/30/2015, SpO2 99 %,not currently . Physical Exam Constitutional: She is oriented to person, place, and time. She appears well- developed and well-nourished. No distress. HENT: Right Ear: Hearing, tympanic membrane, external ear and ear canal normal. Left Ear: Hearing, tympanic membrane, external ear and ear canal normal. Nose: Mucosal edema present. No rhinorrhea. Right sinus exhibits no maxillary sinus tenderness and no frontal sinus tenderness. Left sinus exhibits no maxillary sinus tenderness and no frontal sinus tenderness. Mouth/Throat: Uvula is midline, oropharynx is clear and moist and mucous membranes are normal. Eyes: Pupils are equal, round, and reactive to light. Conjunctivae and EOM are normal. Right eye exhibits no discharge. Left eye exhibits no discharge. Neck: Normal range of motion. Cardiovascular: Normal rate, regular rhythm and normal heart sounds. Pulmonary/Chest: Effort normal and breath sounds normal. No respiratory distress. She has no wheezes. She has no rales. Abdominal: Soft. Bowel sounds are normal. Musculoskeletal: Normal range of motion. Lymphadenopathy: She has no cervical adenopathy. Neurological: She is alert and oriented to person, place, and time. No cranial nerve deficit. Skin: Skin is warm and dry. No rash noted. She is not diaphoretic. Psychiatric: She has a normal mood and affect. Her behavior is normal. Judgment and thought contentnormal. Nursing note and vitals reviewed. Neurologic Exam Mental Status Oriented to person, place, and time. Cranial Nerves CN III, IV, Pupils are equal, round, and reactive to light. Extraocular motions are normal. Assessment and Plan 1. Upper respiratory tract infection, unspecified type - oseltamivir 75 MG Cap capsule; Take 1 capsule by mouth 2 times daily for 5 days. Dispense: 10 capsule; Refill: 0 - predniSONE 20 MG Tab tablet; Take 1 tablet by mouth daily for 5 days. Dispense: 5 tablet; Refill:0 2. Flu-like symptoms - oseltamivir 75 MG Cap capsule; Take 1 capsule by mouth 2 times daily for 5 days. Dispense: 10 capsule; Refill: 0 - predniSONE 20 MG Tab tablet; Take 1 tablet by mouth daily for 5 days. Dispense: 5 tablet; Refill:0 Medical Decision Making Cover for flu since symptoms started yesterday. Follow up based on symptoms. 15 minutes and 50% of the visit spent educating and counseling the patient on the condition(s). documented in this encounter* Samantha Coombs DO - 02/01/2019 3:27 PM EDT amb ref documented in this encounter* Elliot Isidro DO - 02/07/2019 2:00 PM EDT Chief Complaint Patient presents with Follow-up Stress Test completed History of Present Illness 43 y.o. female was seen in my office today to to follow-up on recent testing. Patient continues to experience dizziness. Her main complaint to me today though is these recurrent episodes of migraines which are becoming more and more problematic for her. Her neurologist had been following with her and has been increasing her dose of Topamax. She denies any syncope or anychest pain. No presyncope either. Allergies Allergen Reactions Zithromax [Azithromycin] Outpatient Medications Prior to Visit Medication Sig Dispense Refill amitriptyline 25 MG Tab tablet Take 1 tablet by mouth at bedtime. 30 tablet 2 aspirin 81 MG Tab Take 81 mg by mouth daily. cetirizine 10 MG Tab tablet Take 10 mg by mouth daily. lisinopril 10 MG Tab tablet Take 10 mg by mouth daily. Magnesium 400 MG Tab 1 po q pm 30 tablet 3 naratriptan (AMERGE) 2.5 MG Tab 1 po prn migraine max 5mg/day; may repeat in 4 hr x1 8 tablet 3 omeprazole (PRILOSEC) [address] capsule Take 40 mg by mouth daily. ondansetron 4 MG Tab tablet 1 po q 8 hours prn nausea 10 tablet 3 Riboflavin 100 MG Cap 1 po bid 100 capsule 3 topiramate 100 MG Tab tablet Take 1 tablet by mouth 2 times daily. 180 tablet 1 Topiramate ER 200 MG Cap SR 24HR 1 po at hs 30 capsule 5 No facility-administered medications prior to visit. Family History Problem Relation Age of Onset Lung Cancer Mother Cancer- Other Mother Cancer- Other Sister Depression Sister Breast Cancer Maternal Aunt Heart Disease - Other Maternal Uncle Myocardial Infarction Maternal Uncle has a past surgical history that includes hysterectomy (2012) and ovarian surgery (2014). Social History Socioeconomic History Marital status: Single Spouse name: Not on file Number of children: Not on file Years of education: Not on file Highest education level: Not on file Occupational History Not on file Social Needs Financial resource strain: Not on file Food insecurity: Worry: Not on file Inability: Not on file Transportation needs: Medical: Not on file Non-medical: Not on file Tobacco Use Smoking status: Current Every Day Smoker Packs/day: 0.50 Types: Cigarettes Smokeless tobacco: Never Used Substance and Sexual Activity Alcohol use: Not Currently Drug use: Never Sexual activity: Not Currently Lifestyle Physical activity: Days per week: Not on file Minutes per session: Not on file Stress: Not on file Relationships Social connections: Talks on phone: Not on file Gets together: Not on file Attends evangelical service: Not on file Active member of club or organization: Not on file Attends meetings of clubs or organizations: Not on file Relationship status: Not on file Intimate partner violence: Fear of current or ex partner: Not on file Emotionally abused: Not on file Physically abused: Not on file Forced sexual activity: Not on file Other Topics Concern Not on file Social History Narrative Not on file Review of System Constitutional: positive for fatigue, significant weight loss Hematologic: Negative anemia, cancer, clotting disorder Endocrine: Negative diabetes, thyroid abnormality, flushing Skin: Negative rash, no ulcerations, no jaundice HEENT: Negative visual cut, diplopia or vertigo Cardiovascular: occasional palpitations, no chest pain, syncope, edema Respiratory: occasional shortness of breath, cough, wheeze Gastrointestinal: Negative for abdominal pain, hepatic upper or lower GI abnormalities Genitourinary: Negative for , dysuria, hematuria, nephrolithiasis Neurological: positive fordizziness,negative for TIA, CVA,history of paresthesias an approximately in lower extremities Psychiatric: Negative depression, anxiety, psychiatric disorder Musculoskeletal: Negative for joint pain, swelling, deformity Blood pressure 124/78, pulse 111, last menstrual period 09/30/2015, SpO2 98 %, not currently . There is no height or weight on file to calculate BMI. Physical Exam General appearance - alert and oriented, well developed, well nourished HEENT AT/NC, EOMI, Trachea midline Neck - , No JVD or bruits. No thyromegaly Lungs - clear to auscultation, no wheezes,no rales or rhonchi. Good inspiratory effort Heart - regular rate and regular rhythm, normal S1 and S2 , no significant murmurs,no click rub or lift , No shifting in PMI Abdomen - soft, nontender, no organomegaly, intact BS Extremities -no Edema, warm feet bilateral no open sores or lesions , intact pedal pulses B/L Psych- appropriate mood, appropriate affect Musculoskeletal - no joint deformity, or significant edema Neurological: CN II-XII GI , no focal motor or sensory deficits Lab Results: Lab Results Component Value Date SODIUM 137 10/01/2018 POTASSIUM 3.9 10/01/2018 CALCIUM 9.4 10/01/2018 CHLORIDE 109 (H) 10/01/2018 TP 7.0 10/01/2018 BUN 15 10/01/2018 CREATSERUM 0.7 10/01/2018 ALBUMIN 3.8 10/01/2018 BILITOTAL 0.6 10/01/2018 AST 18 10/01/2018 ALKPHOS 118 10/01/2018 CO2 19 (L) 10/01/2018 AGRATIO 1.2 (L) 10/01/2018 ALT 17 10/01/2018 GFR >60 10/01/2018 GFRAA >60 10/01/2018 GFRCOMMENT Average GFR for 40-49 years old = 99. 10/01/2018 GLUCOSE 91 10/01/2018 Lab Results Component Value Date CHOLESTEROL 191 10/01/2018 TRIG 308 (H) 10/01/2018 HDL 25 (L) 10/01/2018 LDLCALC 104 (H) 10/01/2018 BLDL 62 (H) 10/01/2018 TCHHDLMANENT 7.64 10/01/2018 Lab Results Component Value Date WBC 8.2 10/01/2018 RBC 3.69 (L) 10/01/2018 HGB 13.0 10/01/2018 HCT 38.1 10/01/2018 MCV 103.3 (H) 10/01/2018 MEANCELHGB 35.2 (H) 10/01/2018 MEANCELHGCON 34.0 10/01/2018 RBCDISTRIBU 14.1 10/01/2018 PLATELET 253 10/01/2018 MPV 8.3 10/01/2018 NEUTROPHILS 41.2 10/01/2018 LYMPHOCYTES 49.4 10/01/2018 MONOCYTE 5.4 10/01/2018 EOSINOPHILS 3.3 10/01/2018 EOSINOPHILS 0.30 10/01/2018 BASOPHILS 0.7 10/01/2018 BASOPHILS 0.1 10/01/2018 DIFFTYPE AUTO DIFF 10/01/2018 HGBA1C 5.4 10/01/2018 ESTAVGGLUCOS 108 10/01/2018 Assessment & Plan . Dizziness and giddiness: event monitor was reviewed and while the patient did not activate the monitor when she was having symptoms additional an episode of wide complex tachycardia/V. Tach. That in association with her shortness of breath . Stress showed no evidence of significant ischemia . Echocardiogram showed preserved ejection fraction with normal sized RV . Metoprolol ordered . Patient could possibly have underlying POTS as she was noted to have tachycardia with standing inoffice today.beta dolores added . She is following with neurology for her underlying migraines. Patient has no evidence of ischemiaon her stress test. As such she may receive sumatriptan . In the future, patient continues to have symptoms I will consider referral to POTS clinic . Benign essential hypertension .controlled, cont with current RX . Check echocardiogram . Status post patent foramen ovale closure . Echo within normal limits . Cont with ASA . Lipid panel being checked .tobacco abuse . Patient working on cutting back and eventually full cessation We'll see back in months Elliot Isidro DO 02/08/2019 1:42 PM documented in this encounter* Samantha Coombs DO - 01/31/2019 9:20 AM EDT Wednesday Wyss 43 y.o. female CHIEF COMPLAINT: Headache HISTORY OF PRESENT ILLNESS: Wednesday follows in the neurology clinic on 01/31/2019. She was first evaluated in October 2018 for migraine with aura, non-intractable. Her headaches began approximately 8-9 years ago. She had head pain, scotomata and blurred vision. She was placed on Topamax and did fairly well. Because of other symptoms an echocardiogram was obtained and ASD was noted and she is status post PFO closure years 3 ago. Her headaches are occurring anywhere from 2-3 times per week. Severe migraines 1-2 times per month. Is experiencing some lightheadedness and dizziness and has followed up with cardiology. Previous history of headache: yes History of headache in youth: no Family history of headache: age 35 Duration of headache: all day Location of headache: sharp pain left eye Frequency of headache: 2/week - more severe recently (severe were 1-2 month) mild headaches were 2 times a week Aura: yes Prodrome: Miss work/activities: doesn't do much when has a GUILLEN Triggers:not sure Nausea/Vomitting:+/- Neuro symptoms associated: OTC medication frequency: Prescribed preventive meds: Amitripyline 25 mg for sleep , Topamax 100 mg bid Prescribed abortive meds:Nartriptan helps Side effects:none Evaluation(scans): NA Laboratory investigations: lab on 09/2018 TSH normal/Glucose 91 HGB/HCT normal with elevated indices but B12 normal Recent stress test neg -still having episodes of dizziness- Holter - one episode V tach ? Not trigger event monitor REVIEW OF SYSTEMS: Sleep: 7-8 hours Caffeine: 60 -80 oz daily Head trauma: Water consumption: Missed meals: Personality type: Depression: ALLERGIES: Allergies Allergen Reactions Zithromax [Azithromycin] PAST MEDICAL HISTORY: Past Medical History: Diagnosis Date Essential hypertension, benign Migraine SOCIAL HISTORY: Social History Socioeconomic History Marital status: Single Spouse name: Not on file Number of children: Not on file Years of education: Not on file Highest education level: Not on file Occupational History Not on file Social Needs Financial resource strain: Not on file Food insecurity: Worry: Not on file Inability: Not on file Transportation needs: Medical: Not on file Non-medical: Not on file Tobacco Use Smoking status: Current Every Day Smoker Packs/day: 0.50 Types: Cigarettes Smokeless tobacco: Never Used Substance and Sexual Activity Alcohol use: Not Currently Drug use: Never Sexual activity: Not Currently Lifestyle Physical activity: Days per week: Not on file Minutes per session: Not on file Stress: Not on file Relationships Social connections: Talks on phone: Not on file Gets together: Not on file Attends evangelical service: Not on file Active member of club or organization: Not on file Attends meetings of clubs or organizations: Not on file Relationship status: Not on file Intimate partner violence: Fear of current or ex partner: Not on file Emotionally abused: Not on file Physically abused: Not on file Forced sexual activity: Not on file Other Topics Concern Not on file Social History Narrative Not on file OCCUPATIONAL HISTORY: OUTPATIENT MEDICATIONS PRIOR TO VISIT: Current Outpatient Medications: amitriptyline 25 MG Tab tablet, Take 1 tablet by mouth at bedtime., Disp: 30 tablet, Rfl: 2 aspirin 81 MG Tab, Take 81 mg by mouth daily., Disp: , Rfl: cetirizine 10 MG Tab tablet, Take 10 mg by mouth daily., Disp: , Rfl: lisinopril 10 MG Tab tablet, Take 10 mg by mouth daily., Disp: , Rfl: Magnesium 400 MG Tab, 1 po q pm, Disp: 30 tablet, Rfl: 3 naratriptan (AMERGE) 2.5 MG Tab, 1 po prn migraine max 5mg/day; may repeat in 4 hr x1, Disp: 8 tablet, Rfl: 3 omeprazole (PRILOSEC) [address] capsule, Take 40 mg by mouth daily., Disp: , Rfl: ondansetron 4 MG Tab tablet, 1 po q 8 hours prn nausea, Disp: 10 tablet, Rfl: 3 Riboflavin 100 MG Cap, 1 po bid, Disp: 100 capsule, Rfl: 3 topiramate 100 MG Tab tablet, Take 1 tablet by mouth 2 times daily., Disp: 180 tablet, Rfl: 1 PHYSICAL EXAM: Blood pressure 127/75, pulse 93, temperature 98.1 F (36.7 C), resp. rate 16, height 1.6 m (5' 3 ), weight 79.4 kg (175 lb), last menstrual period 09/30/2015, SpO2 98 %, not currently . Body mass index is 31 kg/m . Tachycardia upon standing- 110 for several seconds Suboccipital pain Photophobia Heart RRR Lungs CTA ASSESSMENT/IMPRESSION: ICD-10-CM 1. Migraine with aura and without status migrainosus, not intractable G43.109 2. PFO (patent foramen ovale) Q21.1 3. Tachycardia R00.0 PLAN: Brain MRI scan for visual changes and persistent headache Continue magnesium and riboflavin Increase Topamax to 250 mg, obtain name brand Qudexy 200 mg Consider stat dos will consult with Dr. Isidro Laboratory investigations today Consideration for [employer] Samantha Coombs DO documented in this encounter Instructions * Patient Instructions* Denzel Farley PA - 01/25/2019 9:15 AM EST 1. Rest and drink plenty of fluids. 2. Use over the counter medications for pain and fever. 3. Take medication(s) as directed in office. 4. Return to office if symptoms worsen or persist. documented in this encounter* Patient Instructions* Samantha Coombs DO - 01/31/2019 9:20 AM EDT Magnesium and Riboflavin Increase Topamax to 250 mg split dose ( 1 in am and 1 1/2 at bed) OR if ER Topiramate covered (200 mg ) take [address] Isidro MRI lab today [employer]- research Follow up with diary in 3 months documented in this encounter Chief Complaint and Reason for Visit Chief Complaint Elevated LFTs, Fatty Liver Chief Complaint Elevated LFTs, Fatty Liver R79.89 K76.0 Additional Source Comments Reason for Visit (unrecogniz ed section and content) StatusReasonSpecialtyDiagnoses / ProceduresReferred By ContactReferred To ContactClosed Diagnoses Dizziness and giddiness Benign essential hypertension Status post patent foramen ovale closure Procedures ECHOCARDIOGRAM Elliot Isidro DO [address] [place] [address] StatusReasonSpecialtyDiagnoses / ProceduresReferred By ContactReferred To ContactClosed Diagnoses Dizziness and giddiness Benign essential hypertension Abnormal EKG Status post patent foramen ovale closure Procedures EVENT MONITOR, CARDIAC Elliot Isidro DO [address] [place] [address] ReasonCommentsOtherStatusReasonSpecialtyDiagnoses / ProceduresReferred By ContactReferred To ContactNew Request Diagnoses Macrocytosis without anemia Procedures US ABDOMEN COMPLETE US ABDOMEN RUQ/LIVER/GB Kasey Zaragoza MD [address] [place] [address] ReasonCommentsFollow-upHolter and Echo completedReasonCommentsURIReasonComments Follow-upStress Test completedStatusReasonSpecialtyDiagnoses / Procedures Referred By ContactReferred To ContactClosedMagnetic Resonance Imaging Diagnoses Blurred vision Procedures MRI BRAIN WITHOUT CONTRAST IA MRI BRAIN Samantha Coombs DO [address] [place] [address] [facility] [address] [place] [address] ReasonCommentsMedication RefillReasonCommentsFollow-upHeadacheStatusReason SpecialtyDiagnoses / ProceduresReferred By ContactReferred To ContactClosed Diagnoses Ventricular tachycardia Procedures NUC MYOCARD PERF STRESS MIBI EXERCISE IA CHG MYOCARDIAL SPECT MULTIPLE STUDIES IA CARDIAC STRESS TST,TRACING ONLY Dwaine Elliot Gonzales DO [address] [place] [address] INFORMATION SOURCE (unrecogn ized section and content) DATE CREATED AUTHOR 11/24/2018 [facility] DATE CREATED AUTHOR AUTHOR'S ORGANIZ ATION 09/02/2019 [facility] DATE CREATED AUTHOR AUTHOR'S ORGANIZ ATION 06/22/2020 [facility] DATE CREATED AUTHOR AUTHOR'S ORGANIZ ATION 11/04/[address] [facility] DATE CREATED AUTHOR AUTHOR'S ORGANIZ ATION 12/03/2022 [facility] DATE CREATED AUTHOR AUTHOR'S ORGANIZ ATION 09/24/2023 [facility] Care Teams (unrecognized sec tion and content) Team Status: Inactive Member Role Status Dates Denzel Granados DO Primary Care Provider Active Elayne RiveraActive Team Status: Active Member Role Status Dates Denzel Granados DO Primary Care Provider Active FOR RECORDS PERTAINING TO PATIENTS WHO ARE OR HAVE BEEN ENROLLED IN A CHEMICAL DEPENDENCY/SUBSTANCEABUSE PROGRAM, SOME INFORMATION MAY BE OMITTED. This clinical summary was aggregated from multiple sources. Caution should be exercised in using it in the provision of clinical care. This summary normalizes information from multiple sources, and as a consequence, information in this document may materially change the coding, format and clinical context of patient data. In addition, data may be omitted in some cases. CLINICAL DECISIONS SHOULD BE BASED ON THE PRIMARY CLINICAL RECORDS. [employer] provides no warranty or guarantee of the accuracy or completeness of information in this document.
[2025-10-09] MEDS: CEFAZOLIN SODIUM 1,000 MG, WATER FOR INJECTION,STERILE 2.5 ML IM (12:56)
== END 2025-10-09 13:06 | disposition home or self-care (01) ==
PROVIDERS: Emergency Provider Emergency Medicine
DX: K04.7 Periapical abscess without sinus (principal); H01.004 Unspecified blepharitis left upper eyelid; F17.200 Nicotine dependence, unspecified, uncomplicated
CPT/HCPCS: 96372; 99284; J0690